=== PATIENT | male | born 1940 | race Caucasian/White ===

== ENCOUNTER → 2018-08-26 15:51 | Outpatient (CLI) | payer MEDICARE, OTHER, SELFPAY ==
--- NOTE | 2018-08-26 | DI.US.S_ITS ---
PROCEDURE: US PERIPH VENOUS LOW EXTREM RT INDICATIONS: LOCALIZED SWELLING, MASS AND LUMP RIGHT LOWER EXTREMITY TECHNIQUE: Real-time imaging, as well as color and pulse Doppler interrogation, were performed of the lower extremity deep veins from the inguinal ligament to the popliteal fossa. COMPARISON: None. FINDINGS: The common femoral, femoral and popliteal veins are normally compressible, and free of intraluminal thrombus. Color and pulse Doppler demonstrate normal phasic intraluminal flow. There is normal augmentation response to distal compression maneuver. What appears to be a Sales's cyst is located behind the knee, measuring 2.0 x 5.7 x 9.0 cm. IMPRESSION: No DVT found. Presumed Sales's cyst discussed above, measuring 2.0 x 5.7 x 9.0 cm. This is the likely cause for the reported symptomatology. Dictated by: Sean Hollins M.D. on 08/26/2018 at 17:12 Approved by: Sean Hollins M.D. on 08/26/2018 at 17:13
== END ==
PROVIDERS: PCP Internal Medicine; Visit Provider Internal Medicine
DX: R22.41 Localized swelling, mass and lump, right lower limb (principal); M79.661 Pain in right lower leg
CPT/HCPCS: 93971

== ENCOUNTER 2019-01-05 12:17 | Inpatient (IN) | payer MEDICARE, OTHER, SELFPAY ==
[2019-01-05] VITALS (11 sets, daily range): BP systolic 129–167; BP diastolic 69–91; PULSE 67–80; RESP 16–20; TEMP 36.4–37; O2SAT 98–100; BMI 23.6
--- NOTE | 2019-01-05 12:33 | DI.RAD.S_ITS ---
PROCEDURE: XR FEMUR RT MIN 2V INDICATIONS: likely femur fx TECHNIQUE: 2 views of the femur were acquired. COMPARISON: [facility], CR, XR HIP W PEL IF DONE RT 2V, 01/05/2019, 12:41. FINDINGS: Bones: There is offset of the posterior aspect of the lateral tibial plateau on the lateral view suggestive of a fracture. Soft tissues: No suspicious soft tissue calcifications or masses. IMPRESSION: Possible lateral tibial plateau fracture. This could be further assessed with knee plain films, if clinically indicated. Dictated by: Shamika Ornelas M.D. on 01/05/2019 at 13:24 Approved by: Shamika Ornelas M.D. on 01/05/2019 at 13:25
--- NOTE | 2019-01-05 12:33 | DI.RAD.S_ITS ---
PROCEDURE: XR HIP W PEL IF DONE RT 2V INDICATIONS: deformity TECHNIQUE: AP pelvis with lateral view(s) of the right hip(s). COMPARISON: [facility], CR, XR FEMUR 2VW LT, 09/12/2016, 13:10. FINDINGS: Bones: There is a moderately displaced comminuted intratrochanteric proximal femoral fracture. Soft tissues: The visualized bowel gas pattern is normal. No suspicious soft tissue calcifications. IMPRESSION: Intratrochanteric femoral fracture. Dictated by: Shamika Ornelas M.D. on 01/05/2019 at 13:25 Approved by: Shamika Ornelas M.D. on 01/05/2019 at 13:26
[2019-01-05] MEDS: LIDOCAINE 2% (UROJET) 5 ML GEL TOP (12:50)
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
[2019-01-05] MEDS: HYDROMORPHONE 1 MG INJ IV ×2 (13:43→19:03)
[2019-01-05] MEDS: SODIUM CHLORIDE 0.9% 1,000 ML 1000 ML IV (13:44)
[2019-01-05 13:57] LABS: Add Manual Diff / Slide Review NO; Basophils Absolute Auto 0 /uL (0-100); Basophils Percent Auto 0.3 % (0-2); Eosinophils Absolute Auto 100 /uL (0-450); Eosinophils Percent Auto 0.9 % (2-4); Hematocrit 38.3 % (41-53); Hemoglobin 13.1 g/dL (13.5-17.5); Lymphocytes Absolute Auto 1100 /uL (1100-4500); Lymphocytes Percent Auto 8.8 % (25-40); Mean Corpuscular HGB Conc 34.1 % (30-36); Mean Corpuscular Hemoglobin 31.7 PG (26-34); Mean Corpuscular Volume 93.1 fL (80-100); Monocytes Absolute Auto 800 /uL (0-900); Monocytes Percent Auto 6.9 % (3-14); Neutrophils Absolute Auto 10000 /uL (1500-7000); Neutrophils Percent Auto 83.1 % (50-75); Platelet Count 165 X10^3/uL (150-400); Red Blood Cell Count 4.11 X10^6/uL (4.5-5.9); Red Cell Distribution Width 14.1 % (11.6-14.8)
[2019-01-05 14:10] LABS: INR 1.2 (0.9-1.3); Prothrombin Time 13.4 SECONDS (10.1-12.7)
[2019-01-05 14:13] LABS: PTT Partial Thromboplastin Tim 34 SECONDS (26.4-36.2)
[2019-01-05 14:14] LABS: Alanine Aminotransferase 32 IU/L (21-72); Albumin 3.3 g/dL (3.5-5.0); Albumin Globulin Ratio 1.6 (1.0-2.8); Alkaline Phosphatase 52 U/L (38-126); Aspartate Aminotransferase 30 IU/L (17-59); Bilirubin Total 0.6 mg/dL (0.2-1.3); Blood Urea Nitrogen 16 mg/dL (9-20); Calcium 8.1 mg/dL (8.4-10.2); Carbon Dioxide 27 mmol/L (22-32); Chloride 105 mmol/L (98-107); Estimated Glomerular Filt Rate > 60.0 mL/min (>60); Globulin 2.1 g/dL (1.7-4.1); Glucose 96 mg/dL (80-110); HEMOLYSIS < 15 (0-50); Sodium 137 mmol/L (137-145); Total Protein 5.4 g/dL (6.3-8.2)
[2019-01-05] MEDS: HYDROMORPHONE 0.5 MG INJ IV (15:04)
--- NOTE | 2019-01-05 15:09 | PM.CN ---
History of Present Illness Chief complaint: fell, right hip pain Reason for consult: Right intertrochanteric hip fracture Requesting provider: Amy Santiago Narrative: The patient is an 78-year-old male that fell this morning on a dock [place] on [facility]. He had immediate hip pain deformity and was unable to ambulate. Denies loss of consciousness. Patient was life flighted to [facility] where x-rays were obtained and the patient was diagnosed with a intertrochanteric hip fracture on the right side. He lives in [place]. Primary care physician is Dr. charles. is currently driving their boat back to [place]. Patient denies any other pain. Denies any pain. Denies shortness of breath denies nausea denies vomiting denies any history of bleeding problems or blood clots. No known history of osteoporosis. [facility] Social History Smoking Status: Former smoker Social History Smoking Status: Former smoker Meds Home Medications Medication Instructions Recorded Confirmed Type aspirin 81 mg PO DAILY 01/05/19 01/05/19 History cyanocobalamin (vitamin B-12) 1,000 mcg IM QMONTH 01/05/19 01/05/19 History doxazosin 8 mg PO QPM 01/05/19 01/05/19 History lamotrigine 50 mg PO QAM 01/05/19 01/05/19 History lamotrigine 100 mg PO QPM 01/05/19 01/05/19 History lisinopril 5 mg PO QPM 01/05/19 01/05/19 History trospium 20 mg PO BID 01/05/19 01/05/19 History Allergies Allergy/AdvReac Type Severity Reaction Status Date / Time iodine [IODINE] Allergy Intermediate rash Verified 01/05/19 12:50 Review of Systems Review of Systems Denies fevers chills nausea vomiting numbness or tingling. Does have a history of vertigo. No current symptoms. Denies pain except for right hip. All systems reviewed & are unremarkable except as noted in HPI and below Exam Vital Signs (past 8 hours): - 01/05/19 12:18 01/05/19 13:30 01/05/19 14:30 Temperature 98.1 F Pulse Rate 74 71 70 Respiratory Rate 16 Blood Pressure 140/80 Blood Pressure [Right Arm] 167/76 H 153/76 H Pulse Oximetry 98 99 98 Oxygen Delivery Method Room Air Narrative Exam Narrative: General exam: Alert oriented male appears stated age lying on stretcher an ER. Answers questions appropriately. Vital signs stable Lungs: Lungs clear to auscultation bilaterally CV: Regular rate and rhythm Abdomen: Soft Genitourinary: Catheter in place Extremities: Left lower extremity no pain. No swelling no tenderness to palpation. Demonstrates active dorsiflexion plantar flexion of the ankle. Brisk capillary refill calf is soft. Right lower extremity: Shortened external rotated posture. Tenderness to palpation proximal femur near hip. No tenderness about the knee. Demonstrates 5/5 dorsiflexion plantar flexion. Endorses sensation to light touch in the lower extremities. Calf soft. Brisk capillary refill Bilateral upper extremities: Demonstrates full active range of motion in the shoulders elbow wrist. Sensation grossly intact to light touch. No tenderness to palpation Objective Imaging X-ray hip right: My impression: Two-view right hip AP pelvis and lateral right hip and two view femur AP and lateral demonstrate a comminuted intertrochanteric fracture of the right hip with involvement of the lesser trochanter and extension into the subtrochanteric region with this.--unstable intertrochanteric fracture. Two-view right femur demonstrates nonstandard imaging of the AP and lateral with joint space narrowing arthritis. No obvious fractures. Radiologist's impression: IMPRESSION: Intratrochanteric femoral fracture. Dictated by: Shamika Ornelas M.D. on 01/05/2019 at 13:25 Approved by: Shamika Ornelas M.D. on 01/05/2019 at 13:26 Labs Result Diagrams: 01/05/19 13:46 01/05/19 13:46 Labs: Laboratory Results - last 24 hr 01/05/19 01/05/19 01/05/19 13:46 13:46 13:46 WBC 12.0 H RBC 4.11 L Hgb 13.1 L Hct 38.3 L MCV 93.1 MCH 31.7 MCHC 34.1 RDW 14.1 Plt Count 165 Neut % (Auto) 83.1 H Lymph % (Auto) 8.8 L [place] % (Auto) 6.9 Eos % (Auto) 0.9 L Baso % (Auto) 0.3 Neut # (Auto) 19129 H Lymph # (Auto) 1100 [place] # (Auto) 800 Eos # (Auto) 100 Baso # (Auto) 0 PT 13.4 H INR 1.2 APTT 34 Sodium 137 Potassium 4.0 Chloride 105 Carbon Dioxide 27 BUN 16 Creatinine 0.50 L Estimated GFR > 60.0 BUN/Creatinine Ratio 32.0 H Glucose 96 Calcium 8.1 L Total Bilirubin 0.6 AST 30 ALT 32 Alkaline Phosphatase 52 Total Protein 5.4 L Albumin 3.3 L Globulin 2.1 Albumin/Globulin Ratio 1.6 Assessment & Plan Assessment & Plan narrative: 1. Right intertrochanteric hip fracture. The patient has a displaced and unstable intertrochanteric hip fracture pattern with comminution and involvement of the lesser trochanter. The patient has been indicated for operative fixation for stability and pain control and to facilitate early mobilization. The risks and benefits of the procedure have been discussed with the patient. The patient has had an opportunity to ask questions. The risks of surgery include but are not limited to infection, malunion, nonunion, persistence of pain, damage to nerves and blood vessels, posttraumatic arthritis, DVT, PE, symptomatic hardware, hardware failure, need for additional procedures, cardiopulmonary complications and . The patient expressed a thorough understanding of the risks and benefits of surgery and has elected to proceed. Consent was signed in the today. Patient will require medical optimization prior to surgery. Based on scheduling this would be ideally done within 72 hours of injury. Tentatively this scheduled for Saturday at 7:45 a.m. the patient will be NPO on Saturday at midnight. Alternative would be Saturday night in the evening after 5:00 p.m based on OR availability. Postoperatively DVT prophylaxis is recommended with SCDs and Lovenox x4 weeks. Patient is recommended for calcium and vitamin-D supplementation and evaluation with his primary care physician regarding a bone mineral density possible DEXA scanning and or bone metabolic treatment as indicated. Follow-up in Orthopedic Clinic with Dr. Ospina 2 weeks after surgery.
--- NOTE | 2019-01-05 15:17 | P.CONS_ITS ---
History of Present Illness Chief complaint: fell, right hip pain Reason for consult: Right intertrochanteric hip fracture Requesting provider: Amy Santiago Narrative: The patient is an 78-year-old male that fell this morning [place] a dock [place] [facility]. He had immediate hip pain deformity and was unable to ambulate. Denies loss of consciousness. Patient was life flighted to [facility] where x-rays were obtained and the patient was diagnosed with a intertrochanteric hip fracture on the right side. He lives in [place]. Primary care physician is Dr. charles. is currently driving their boat back to [place]. Patient denies any other pain. Denies any pain. Denies shortness of breath denies nausea denies vomiting denies any history of bleeding problems or blood clots. No known history of osteoporosis. [facility] Social History Smoking Status: Former smoker Social History Smoking Status: Former smoker Meds Home Medications Medication Instructions Recorded Confirmed Type aspirin 81 mg PO DAILY 01/05/19 01/05/19 History cyanocobalamin (vitamin B-12) 1,000 mcg IM QMONTH 01/05/19 01/05/19 History doxazosin 8 mg PO QPM 01/05/19 01/05/19 History lamotrigine 50 mg PO QAM 01/05/19 01/05/19 History lamotrigine 100 mg PO QPM 01/05/19 01/05/19 History lisinopril 5 mg PO QPM 01/05/19 01/05/19 History trospium 20 mg PO BID 01/05/19 01/05/19 History Allergies Allergy/AdvReac Type Severity Reaction Status Date / Time iodine [IODINE] Allergy Intermediate rash Verified 01/05/19 12:50 Review of Systems Review of Systems Denies fevers chills nausea vomiting numbness or tingling. Does have a history of vertigo. No current symptoms. Denies pain except for right hip. All systems reviewed & are unremarkable except as noted in HPI and below Exam Vital Signs (past 8 hours): - 01/05/19 12:18 01/05/19 13:30 01/05/19 14:30 Temperature 98.1 F Pulse Rate 74 71 70 Respiratory Rate 16 Blood Pressure 140/80 Blood Pressure [Right Arm] 167/76 H 153/76 H Pulse Oximetry 98 99 98 Oxygen Delivery Method Room Air Narrative Exam Narrative: General exam: Alert oriented male appears stated age lying on stretcher an ER. Answers questions appropriately. Vital signs stable Lungs: Lungs clear to auscultation bilaterally CV: Regular rate and rhythm Abdomen: Soft Genitourinary: Catheter in place Extremities: Left lower extremity no pain. No swelling no tenderness to palpation. Demonstrates active dorsiflexion plantar flexion of the ankle. B risk capillary refill calf is soft. Right lower extremity: Shortened external rotated posture. Tenderness to palpation proximal femur near hip. No tenderness about the knee. Demonstrates 5/5 dorsiflexion plantar flexion. Endorses sensation to light touch in the lower extremities. Calf soft. Brisk capillary refill Bilateral upper extremities: Demonstrates full active range of motion in the shoulders elbow wrist. Sensation grossly intact to light touch. No tenderness to palpation Objective Imaging X-ray hip right: My impression: Two-view right hip AP pelvis and lateral right hip and two view femur AP and lateral demonstrate a comminuted intertrochanteric fracture of the right hip with involvement of the lesser trochanter and extension into the subtrochanteric region with this.--unstable intertrochanteric fracture. Two- view right femur demonstrates nonstandard imaging of the AP and lateral with joint space narrowing arthritis. No obvious fractures. Radiologist's impression: IMPRESSION: Intratrochanteric femoral fracture. Dictated by: Shamika Ornelas M.D. on 01/05/2019 at 13:25 Approved by: Shamika Ornelas M.D. on 01/05/2019 at 13:26 Labs Result Diagrams: 01/05/19 13:46 01/05/19 13:46 Labs: Laboratory Results - last 24 hr 01/05/19 01/05/19 01/05/19 13:46 13:46 13:46 WBC 12.0 H RBC 4.11 L Hgb 13.1 L Hct 38.3 L MCV 93.1 MCH 31.7 MCHC 34.1 RDW 14.1 Plt Count 165 Neut % (Auto) 83.1 H Lymph % (Auto) 8.8 L [place] % (Auto) 6.9 Eos % (Auto) 0.9 L Baso % (Auto) 0.3 Neut # (Auto) 53721 H Lymph # (Auto) 1100 [place] # (Auto) 800 Eos # (Auto) 100 Baso # (Auto) 0 PT 13.4 H INR 1.2 APTT 34 Sodium 137 Potassium 4.0 Chloride 105 Carbon Dioxide 27 BUN 16 Creatinine 0.50 L Estimated GFR > 60.0 BUN/Creatinine Ratio 32.0 H Glucose 96 Calcium 8.1 L Total Bilirubin 0.6 AST 30 ALT 32 Alkaline Phosphatase 52 Total Protein 5.4 L Albumin 3.3 L Globulin 2.1 Albumin/Globulin Ratio 1.6 Assessment & Plan Assessment & Plan narrative: 1. Right intertrochanteric hip fracture. The patient has a displaced and unstable intertrochanteric hip fracture pattern with comminution and involvement of the lesser trochanter. The patient has been indicated for operative fixation for stability and pain control and to facilitate early mobilization. The risks and benefits of the procedure have been discussed with the patient. The patient has had an opportunity to ask questions. The risks of surgery include but are not limited to infection, malunion, nonunion, persistence of pain, damage to nerves and blood vessels, posttraumatic arthritis, DVT, PE, symptomatic hardware, hardware failure, need for additional procedures, cardiopulmonary complications and . The patient expressed a thorough understanding of the risks and benefits of surgery and has elected to proceed. Consent was signed in the today. Patient will require medical optimization prior to surgery. Based on scheduling this would be ideally done within 72 hours of injury. Tentatively this scheduled for Saturday at 7:45 a.m. the patient will be NPO on Saturday at midnight. Alternative would be Saturday night in the evening after 5:00 p.m based on OR availability. Postoperatively DVT prophylaxis is recommended with SCDs and Lovenox x4 weeks. Patient is recommended for calcium and vitamin-D supplementation and evaluation with his primary care physician regarding a bone mineral density possible DEXA scanning and or bone metabolic treatment as indicated. Follow-up in Orthopedic Clinic with Dr. Ospina 2 weeks after surgery.
--- NOTE | 2019-01-05 15:39 | PC.NURSE ---
attempted to give report, nurse unavailable at this time.
[2019-01-05] MEDS: SODIUM CHLORIDE 0.9% 1,000 ML 100 ML IV (17:45)
[2019-01-05] MEDS: KETOROLAC 30 MG/ML VIAL IV ×2 (18:05→23:41)
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
[2019-01-05] MEDS: lamoTRIgine 100 MG TABLET PO (19:12)
[2019-01-05] MEDS: DOXAZOSIN 4 MG TABLET 8 MG PO (19:13)
[2019-01-05] MEDS: DOCUSATE 100 MG CAPSULE PO (19:14)
[2019-01-05] MEDS: LISINOPRIL 5 MG TABLET PO (19:54)
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
[2019-01-05] MEDS: ACETAMINOPHEN 325 MG TABLET 975 MG PO (23:42)
--- NOTE | 2019-01-05 23:57 | PC.NURSE ---
Addendum entered by Loyda Schmitz R.N. 01/06/19 06:06: States pain at rest is 0/10 but with any movement increases to 7/10; medicated with scheduled Tylenol + Toradol. Awake most of night. Addendum entered by Loyda Schmitz R.N. 01/06/19 03:54: Medicated with Oxycodone for complaint of 5/10 right hip pain. Addendum entered by Loyda Schmitz R.N. 01/06/19 00:23: Patient has indwelling catheter which is patent; urine is clear eryn. Original Note: Patient is oriented except for day of month/day of week. Breath sounds diminished but CTA with RA sat of 100%. HRR. Telemetry reading was SR w/1st degree AVB + BBB. Denies nausea. BT present and abdomen is soft. Not wanting to reposition due to right hip pain but did turn slightly to left for lung assessment. States pain is 5/10; medicated with scheduled Tylenol + Toradol. Agreeable at shift change to have SCD's applied so now with calf SCD's in place. Bandaids to right hand/wrist are CDI. Fall risk score is high and bed alarm is activated.
[2019-01-06] VITALS (11 sets, daily range): BP systolic 120–154; BP diastolic 63–76; PULSE 57–75; RESP 14–20; TEMP 35.8–37.5; O2SAT 96–100
[2019-01-06] MEDS: SODIUM CHLORIDE 0.9% 1,000 ML 100 ML IV (03:37)
[2019-01-06] MEDS: OXYCODONE IR 5 MG TABLET PO ×5 (03:40→23:07)
[2019-01-06] MEDS: ACETAMINOPHEN 325 MG TABLET 975 MG PO ×3 (06:05→17:58)
[2019-01-06] MEDS: KETOROLAC 30 MG/ML VIAL IV (06:06)
[2019-01-06 07:09] LABS: Add Manual Diff / Slide Review NO; Basophils Absolute Auto 0 /uL (0-100); Basophils Percent Auto 0.3 % (0-2); Eosinophils Absolute Auto 100 /uL (0-450); Eosinophils Percent Auto 2.1 % (2-4); Hematocrit 31.9 % (41-53); Lymphocytes Absolute Auto 1300 /uL (1100-4500); Lymphocytes Percent Auto 18.9 % (25-40); Mean Corpuscular HGB Conc 34.6 % (30-36); Mean Corpuscular Hemoglobin 32.5 PG (26-34); Monocytes Absolute Auto 1000 /uL (0-900); Monocytes Percent Auto 14.3 % (3-14); Neutrophils Absolute Auto 4300 /uL (1500-7000); Neutrophils Percent Auto 64.4 % (50-75); Platelet Count 124 X10^3/uL (150-400); Red Blood Cell Count 3.39 X10^6/uL (4.5-5.9); Red Cell Distribution Width 13.8 % (11.6-14.8); White Blood Cell Count 6.6 X10^3/uL (4.5-11.0)
[2019-01-06 07:29] LABS: BUN Creatinine Ratio 28.3 (6-22); Blood Urea Nitrogen 17 mg/dL (9-20); Calcium 7.5 mg/dL (8.4-10.2); Carbon Dioxide 28 mmol/L (22-32); Chloride 99 mmol/L (98-107); Estimated Glomerular Filt Rate > 60.0 mL/min (>60); Glucose 156 mg/dL (80-110); HEMOLYSIS < 15 (0-50); Magnesium 1.7 mg/dL (1.6-2.3); Sodium 130 mmol/L (137-145)
[2019-01-06] MEDS: ASPIRIN EC 81 MG TABLET PO (08:09)
[2019-01-06] MEDS: lamoTRIgine 100 MG TABLET 50 MG PO (08:09)
--- NOTE | 2019-01-06 09:42 | P.PN_ITS ---
Subjective Date Patient Seen: 01/06/19 Interval history: Maikol Hutchison is an 78-year-old male with a past medical history significant for hypertension, seizure disorder, vertigo and BPH who presented after ground level fall with right hip pain and inability to ambulate. The patient is resting in bed comfortably. He reports he has very little pain. He experienced the most pain with movement. He was NPO at midnight but is not scheduled for surgery until tomorrow therefore his diet has been advanced. He has no complaints and denies headache, shortness of breath, chest pain, abdominal pain, nausea, vomiting, fever, chills, dysuria, diarrhea or constipation. He is voiding via Campuzano catheter without difficulty. He has not had a bowel movement since admission and a bowel regimen has been implemented. Exam Vital Signs (past 8 hours): - 01/06/19 03:51 01/06/19 08:00 01/06/19 08:05 Temperature 97.5 F L 96.5 F L Pulse Rate 65 63 Respiratory Rate 20 14 Blood Pressure 120/65 123/63 Pulse Oximetry 98 99 97 Oxygen Delivery Method Room Air Oxygen Flow Rate 0 Narrative Exam Narrative: General: Elderly thin gentleman sitting in bed and in no acute distress, well- developed, well-nourished, appropriately interactive. HEENT: Normocephalic, atraumatic. External ears without defect. Pupils equal, round, and reactive to light. Anicteric sclerae, moist conjunctivae, and no lid lag. Oropharynx free of erythema and cobble stoning with moist mucosa. Seborrheic keratoses scattered throughout body. Neck: Supple with full range of motion. No jugular venous distension. No lymphadenopathy or thyromegaly. Cardiovascular: Regular rate and rhythm without murmurs, rubs, or gallops appreciated Pulmonary: Clear to auscultation bilaterally without crackles, wheezes, or rhonchi. Normal respiratory effort with no use of accessory muscles. Abdomen: Soft, bowel sounds present, nontender, nondistended. No hepatosplenomegaly or masses appreciated. Extremities: No clubbing, cyanosis, or edema. Right leg externally rotated with obvious deformity. No tenderness to palpation superficially. No ecchymoses. Skin: Normal temperature, turgor, and texture; no rash, ulcers, or subcutaneous nodules appreciated. Neurological: Cranial nerves grossly intact. Psychiatric: Normal mood and affect. Alert and oriented to person, place, and time. Objective Labs Result Diagrams: 01/06/19 07:00 01/06/19 07:00 Labs: Laboratory Results - last 24 hr 01/05/19 01/05/19 01/05/19 13:46 13:46 13:46 WBC 12.0 H RBC 4.11 L Hgb 13.1 L Hct 38.3 L MCV 93.1 MCH 31.7 MCHC 34.1 RDW 14.1 Plt Count 165 Neut % (Auto) 83.1 H Lymph % (Auto) 8.8 L [place] % (Auto) 6.9 Eos % (Auto) 0.9 L Baso % (Auto) 0.3 Neut # (Auto) 97233 H Lymph # (Auto) 1100 [place] # (Auto) 800 Eos # (Auto) 100 Baso # (Auto) 0 PT 13.4 H INR 1.2 APTT 34 Sodium 137 Potassium 4.0 Chloride 105 Carbon Dioxide 27 BUN 16 Creatinine 0.50 L Estimated GFR > 60.0 BUN/Creatinine Ratio 32.0 H Glucose 96 Calcium 8.1 L Magnesium Total Bilirubin 0.6 AST 30 ALT 32 Alkaline Phosphatase 52 Total Protein 5.4 L Albumin 3.3 L Globulin 2.1 Albumin/Globulin Ratio 1.6 01/06/19 01/06/19 07:00 07:00 WBC 6.6 RBC 3.39 L Hgb 11.0 L Hct 31.9 L MCV 94.0 MCH 32.5 MCHC 34.6 RDW 13.8 Plt Count 124 L Neut % (Auto) 64.4 Lymph % (Auto) 18.9 L [place] % (Auto) 14.3 H Eos % (Auto) 2.1 Baso % (Auto) 0.3 Neut # (Auto) 4300 Lymph # (Auto) 1300 [place] # (Auto) 1000 H Eos # (Auto) 100 Baso # (Auto) 0 PT INR APTT Sodium 130 L Potassium 4.0 Chloride 99 Carbon Dioxide 28 BUN 17 Creatinine 0.60 L Estimated GFR > 60.0 BUN/Creatinine Ratio 28.3 H Glucose 156 H Calcium 7.5 L Magnesium 1.7 Total Bilirubin AST ALT Alkaline Phosphatase Total Protein Albumin Globulin Albumin/Globulin Ratio Assessment & Plan Assessment & Plan narrative: Maikol Hutchison is an 78-year-old male with a past medical history significant for hypertension, seizure disorder, vertigo and BPH who presented after ground level fall with right hip pain and inability to ambulate. 1. Acute pathological right intratrochanteric hip fracture, present on admission . Active. -Patient presented after he became dizzy from turning his head quickly and endured a ground level fall with right hip pain, obvious deformity and inability to walk. -Right hip x-ray demonstrated right intratrochanteric femoral fracture. -Continue to monitor closely on telemetry. -Consulted Orthopedic surgery, Dr. Ospina, who plans to repair hip on 01/07 due scheduling conflicts. NPO at midnight. -Continue acetaminophen 975 mg 3 times daily, oxycodone 5-325 mg every 3 hours as needed for moderate pain and hydromorphone 1 mg every 6 hours as needed for breakthrough pain. 2. Vertigo, acute on chronic, not present on admission. Intermittent. -Patient presented after a vertigo/presyncopal episode in which he turned his head causing such a degree of lightheadedness and and dizziness that he fell down. -Ordered CTA head and neck, pending. 3. Normocytic anemia, acuity unclear but likely acute and related to hip fracture, present on admission. Active. -Initial hemoglobin 13.1 which is only mildly below normal and likely bank representative of acute anemia related to hip fracture. Now 11.0 and likely dilutional. -Continue to monitor H&H closely. Transfusion goal Hgb < 7.0. 4. Hypertension, chronic, present on admission. Stable. -Continue lisinopril 5 mg daily at bedtime. 5. Seizure disorder, chronic, present on admission. Stable. -Patient has history of seizure disorder with last seizure at least 5 years ago and without a known cause for seizures. -Continue lamotrigine 100 mg twice daily. 6. BPH with LUTS, chronic, present on admission. Stable. -Continue doxazosin 8 mg daily at bedtime and trospium 20 mg twice daily. 7. Alcohol dependence, chronic, present on admission. Stable. -Patient reports he drinks 1-2 beers nightly. -He has no history of alcohol withdrawal, DTs or alcohol withdrawal seizure. -Continue to monitor closely for signs of alcohol withdrawal and have a low threshold to initiate CIWA protocol.
--- NOTE | 2019-01-06 10:09 | PM.PN.1 ---
Subjective Date Patient Seen: 01/06/19 Time Patient Seen: 10:09 Interval history: Hospital day 2 with a right intertrochanteric displaced hip fracture. Orthopedic consult done by Dr. Ospina. Patient is currently scheduled for hip surgery tomorrow morning by Dr. Ospina. Patient had difficulty voiding and had Campuzano catheter placed. He is receiving IV Dilaudid and ketorolac and also oxycodone p.o.. Exam Vital Signs (past 8 hours): - 01/06/19 03:51 01/06/19 08:00 01/06/19 08:05 Temperature 97.5 F L 96.5 F L Pulse Rate 65 63 Respiratory Rate 20 14 Blood Pressure 120/65 123/63 Pulse Oximetry 98 99 97 Oxygen Delivery Method Room Air Oxygen Flow Rate 0 Narrative Exam Narrative: Alert, oriented no acute distress resting in bed. Right leg. No calf pain or swelling. Pulses symmetrical. Increased pain with movement of right hip. Objective Labs Result Diagrams: 01/06/19 07:00 01/06/19 07:00 Labs: Laboratory Results - last 24 hr 01/05/19 01/05/19 01/05/19 13:46 13:46 13:46 WBC 12.0 H RBC 4.11 L plan: Hgb 13.1 L Hct 38.3 L MCV 93.1 MCH 31.7 MCHC 34.1 RDW 14.1 Plt Count 165 Neut % (Auto) 83.1 H Lymph % (Auto) 8.8 L [place] % (Auto) 6.9 Eos % (Auto) 0.9 L Baso % (Auto) 0.3 Neut # (Auto) 25267 H Lymph # (Auto) 1100 [place] # (Auto) 800 Eos # (Auto) 100 Baso # (Auto) 0 PT 13.4 H INR 1.2 APTT 34 Sodium 137 Potassium 4.0 Chloride 105 Carbon Dioxide 27 BUN 16 Creatinine 0.50 L Estimated GFR > 60.0 BUN/Creatinine Ratio 32.0 H Glucose 96 Calcium 8.1 L Magnesium Total Bilirubin 0.6 AST 30 ALT 32 Alkaline Phosphatase 52 Total Protein 5.4 L Albumin 3.3 L Globulin 2.1 Albumin/Globulin Ratio 1.6 01/06/19 01/06/19 07:00 07:00 WBC 6.6 RBC 3.39 L Hgb 11.0 L Hct 31.9 L MCV 94.0 MCH 32.5 MCHC 34.6 RDW 13.8 Plt Count 124 L Neut % (Auto) 64.4 Lymph % (Auto) 18.9 L [place] % (Auto) 14.3 H Eos % (Auto) 2.1 Baso % (Auto) 0.3 Neut # (Auto) 4300 Lymph # (Auto) 1300 [place] # (Auto) 1000 H Eos # (Auto) 100 Baso # (Auto) 0 PT INR APTT Sodium 130 L Potassium 4.0 Chloride 99 Carbon Dioxide 28 BUN 17 Creatinine 0.60 L Estimated GFR > 60.0 BUN/Creatinine Ratio 28.3 H Glucose 156 H Calcium 7.5 L Magnesium 1.7 Total Bilirubin AST ALT Alkaline Phosphatase Total Protein Albumin Globulin Albumin/Globulin Ratio Assessment & Plan Assessment & Plan narrative: Plan: Patient will remain in bed today. Plan NPO after midnight tonight for surgery tomorrow morning by Dr. Ospina.
--- NOTE | 2019-01-06 10:12 | P.PN_ITS ---
Subjective Date Patient Seen: 01/06/19 Time Patient Seen: 10:09 Interval history: Hospital day 2 with a right intertrochanteric displaced hip fracture. Orthopedic consult done by Dr. Ospina. Patient is currently scheduled for hip surgery tomorrow morning by Dr. Ospina. Patient had di fficulty voiding and had Campuzano catheter placed. He is receiving IV Dilaudid and ketorolac and also oxycodone p.o.. Exam Vital Signs (past 8 hours): - 01/06/19 03:51 01/06/19 08:00 01/06/19 08:05 Temperature 97.5 F L 96.5 F L Pulse Rate 65 63 Respiratory Rate 20 14 Blood Pressure 120/65 123/63 Pulse Oximetry 98 99 97 Oxygen Delivery Method Room Air Oxygen Flow Rate 0 Narrative Exam Narrative: Alert, oriented no acute distress resting in bed. Right leg. No calf pain or swelling. Pulses symmetrical. Increased pain with movement of right hip. Objective Labs Result Diagrams: 01/06/19 07:00 01/06/19 07:00 Labs: Laboratory Results - last 24 hr 01/05/19 01/05/19 01/05/19 13:46 13:46 13:46 WBC 12.0 H RBC 4.11 L plan: Hgb 13.1 L Hct 38.3 L MCV 93.1 MCH 31.7 MCHC 34.1 RDW 14.1 Plt Count 165 Neut % (Auto) 83.1 H Lymph % (Auto) 8.8 L [place] % (Auto) 6.9 Eos % (Auto) 0.9 L Baso % (Auto) 0.3 Neut # (Auto) 98095 H Lymph # (Auto) 1100 [place] # (Auto) 800 Eos # (Auto) 100 Baso # (Auto) 0 PT 13.4 H INR 1.2 APTT 34 Sodium 137 Potassium 4.0 Chloride 105 Carbon Dioxide 27 BUN 16 Creatinine 0.50 L Estimated GFR > 60.0 BUN/Creatinine Ratio 32.0 H Glucose 96 Calcium 8.1 L Magnesium Total Bilirubin 0.6 AST 30 ALT 32 Alkaline Phosphatase 52 Total Protein 5.4 L Albumin 3.3 L Globulin 2.1 Albumin/Globulin Ratio 1.6 01/06/19 01/06/19 07:00 07:00 WBC 6.6 RBC 3.39 L Hgb 11.0 L Hct 31.9 L MCV 94.0 MCH 32.5 MCHC 34.6 RDW 13.8 Plt Count 124 L Neut % (Auto) 64.4 Lymph % (Auto) 18.9 L [place] % (Auto) 14.3 H Eos % (Auto) 2.1 Baso % (Auto) 0.3 Neut # (Auto) 4300 Lymph # (Auto) 1300 [place] # (Auto) 1000 H Eos # (Auto) 100 Baso # (Auto) 0 PT INR APTT Sodium 130 L Potassium 4.0 Chloride 99 Carbon Dioxide 28 BUN 17 Creatinine 0.60 L Estimated GFR > 60.0 BUN/Creatinine Ratio 28.3 H Glucose 156 H Calcium 7.5 L Magnesium 1.7 Total Bilirubin AST ALT Alkaline Phosphatase Total Protein Albumin Globulin Albumin/Globulin Ratio Assessment & Plan Assessment & Plan narrative: Plan: Patient will remain in bed today. Plan NPO after midnight tonight for surgery tomorrow morning by Dr. Ospina.
--- NOTE | 2019-01-06 10:38 | PC.NURSE ---
Day Shift- Pt A&OX3, disoriented to date/day of week. Able to make needs known using call light. Repositioned in bed with 2PA, bedrest for now. Per John Mosquera,PAC, pt may eat today, NPO at midnight for surgery tomorrow/Saturday 8 AM, no time yet. Pt updated. Per Dr. King at 1015, pt to start fluid restriction with free water of 2000ml. 800/800/400. Limit coffee to 2 cups per day. Plan to pre-medicate pt with IV Benadryl and IV Solu-mederol prior to CT scan. High fall risk precautions in place, bed alarm on. Pt's Yazmin at bedside updated with plan.
[2019-01-06] MEDS: diphenhydrAMINE 50 MG/ML VIAL 25 MG IV (10:54)
--- NOTE | 2019-01-06 11:24 | DI.CT.S_ITS ---
PROCEDURE: CT ANGIO HEAD AND NECK INDICATIONS: Presyncopal episode with neck turning TECHNIQUE: Pre-contrast 4.5 mm thick sections acquired from the foramen magnum to the vertex. After the administration of intravenous contrast, 1 mm thick sections acquired from the aortic arch through the Lohn of [place]. Post-contrast 4.5 mm thick sections then re-acquired from the foramen magnum to the vertex. 3-dimensional iwxapin-ivnsfhahs-cgncxuznlb (MIP) and/or volume rendering reformats were acquired of the central intracranial vasculature and neck separately. COMPARISON: None. FINDINGS: Image quality: Excellent. BRAIN: CSF spaces: Ventricles are normal in size and shape. Basal cisterns are patent. No extra-axial fluid collections. Brain: No midline shift. No intracranial bleeds or masses. Ayala-white matter interface appears intact. Skull and face: Calvarium and facial bones appear intact, without suspicious lesions. Orbits appear normal. Sinuses: Sinuses and mastoids are clear except for minimal bilateral maxillary sinus mucosal thickening. HEAD CT ANGIOGRAPHY: Anterior circulation: Intracranial internal carotid arteries are normal in size and flow. The flow within the paired anterior cerebral arteries is normal and symmetric. The flow within the middle cerebral arteries is normal and symmetric. The anterior communicating artery is seen. No aneurysms are seen. Posterior circulation: Visualized portions of the vertebral arteries demonstrate normal caliber, and join to form a normal appearing basilar artery. Flow within the posterior cerebral arteries is normal and symmetric. No aneurysms are seen. NECK CT ANGIOGRAPHY: Carotid system: The great vessels demonstrate a conventional anatomy as they arise from the aortic arch. The origins of the common carotid arteries appear patent. The common carotid arteries demonstrate normal caliber and courses. The bifurcation regions are both widely patent. There is minimal left carotid atherosclerosis. The internal carotid arteries demonstrate normal calibers and courses. Posterior circulation: Dominant left vertebral artery. The basal artery appears grossly unremarkable. Diffuse hypoplastic/narrowed appearance of the right vertebral artery The right posterior communicating artery is visualized. The flow within the posterior cerebral arteries is normal and symmetric. No stenoses, occlusions, or aneurysms. Soft tissues: Visualized neck soft tissues demonstrate no suspicious abnormalities. Bilateral upper lobe scarring/atelectasis. Bones: No suspicious bony lesions. Visualized cervical spine appears normally aligned. IMPRESSION: Minimal left carotid atherosclerosis. No focal ICA stenosis or occlusion. Dominant left vertebral artery. Normal intracranial MRA. No acute intracranial process. Any quantitative measurements of stenosis were performed using NASCET criteria. Dictated by: Randell Potts M.D. on 01/06/2019 at 12:44 Approved by: Randell Potts M.D. on 01/06/2019 at 12:52
--- NOTE | 2019-01-06 14:31 | CM.DANOTE ---
Addendum entered by Massiel Mason LPN 01/06/19 14:44: Went to room as planned. Pt is snoring and medicated. Discussion with miriam SUÁREZ coordinator Bubba bowmanates that pt may be going to surgery this later today as an add on with Dr. Ospina instead of having to wait for tomorrow. DCP team will check in tomorrow and follow up after surgery to assist with rehab issues and options. Payer: Medicare and [employer]. Admission status: INPT: confirmed by UR KAMINI Hinds. Original Note: Discharge Planning/Care Management DCP: assessment: Case received EMR reviewed. Discussed in Team Rounds. Pt is an 78 year old male who slipped and fell while reportedly getting a boat off of a dock. Admitted yesterday afternoon to care of hospitalist team. Orthopedic team is consulting. As per discussion in Rounds surgery is planned tomorrow to repair fractured hip. Will check in with pt now for introduction of self and role. CM Discharge Assessment Start: 01/06/19 14:30 Freq: Status: Active Protocol: Document 01/06/19 14:30 ITV (Rec: 01/06/19 14:31 ITV [id number]) Discharge Planning Assessment Advance Directives? No History Provided By Patient Medical Record Prior Living Arrangements House Household Members spouse Is patient alert and oriented? Yes Whiteboard Updated in Patient Room with Yes name and ext. # of Foam Tank Laminator Review Status In Process
[2019-01-06] MEDS: LISINOPRIL 5 MG TABLET PO (17:57)
[2019-01-06] MEDS: DOXAZOSIN 4 MG TABLET 8 MG PO (17:59)
[2019-01-06] MEDS: lamoTRIgine 100 MG TABLET PO (18:00)
[2019-01-06] MEDS: HYDROMORPHONE 1 MG INJ IV (20:27)
[2019-01-06] MEDS: DOCUSATE 100 MG CAPSULE PO (21:03)
[2019-01-07] VITALS (16 sets, daily range): BP systolic 94–149; BP diastolic 38–72; PULSE 69–81; RESP 12–20; TEMP 36.4–37.1; O2SAT 93–100
--- NOTE | 2019-01-07 | DI.RAD.S_ITS ---
PROCEDURE: XR FEMUR RT MIN 2V INDICATIONS: POST OPERATIVE RIGHT IM NAILING TECHNIQUE: 4 views of the femur were acquired. COMPARISON: None. FINDINGS: Expected postoperative alignment of femoral intramedullary leyla and screw fixation. Hardware appears intact. Overlying postoperative soft tissue changes. IMPRESSION: Expected postoperative appearance. Dictated by: Randell Potts M.D. on 01/07/2019 at 11:02 Approved by: Randell Potts M.D. on 01/07/2019 at 11:04
--- NOTE | 2019-01-07 | DI.RAD.S_ITS ---
PROCEDURE: XR FEMUR RT MIN 2V INDICATIONS: RIGHT IM NAILING TECHNIQUE: 6 views of the femur were acquired. COMPARISON: [facility], , XR FEMUR RT MIN 2V, 01/05/2019, 12:41. FINDINGS: Spot fluoroscopic intraoperative views demonstrates intramedullary leyla and dynamic screw fixation of proximal right femur. Expected intraoperative alignment Dictated by: Randell Potts M.D. on 01/07/2019 at 12:26 Approved by: Randell Potts M.D. on 01/07/2019 at 12:27
[2019-01-07] MEDS: HYDROMORPHONE 1 MG INJ IV (03:09)
--- NOTE | 2019-01-07 06:53 | PC.NURSE ---
0653 OR crew is here to take pt. to surgery. Iain Sanderson co-ordinated yesterday called @ 0659 to report that pt. also sustained Rt. tibial plateau fracture. Informed ARTIFICIAL CHERRY MAKER., will report to day RN.
[2019-01-07 07:04] LABS: Add Manual Diff / Slide Review NO; Basophils Absolute Auto 100 /uL (0-100); Basophils Percent Auto 0.7 % (0-2); Eosinophils Absolute Auto 0 /uL (0-450); Eosinophils Percent Auto 0.4 % (2-4); Hematocrit 34.6 % (41-53); Hemoglobin 11.9 g/dL (13.5-17.5); Lymphocytes Absolute Auto 1500 /uL (1100-4500); Lymphocytes Percent Auto 12.6 % (25-40); Mean Corpuscular HGB Conc 34.3 % (30-36); Mean Corpuscular Hemoglobin 32.1 PG (26-34); Mean Corpuscular Volume 93.6 fL (80-100); Monocytes Absolute Auto 1200 /uL (0-900); Monocytes Percent Auto 9.8 % (3-14); Neutrophils Absolute Auto 9200 /uL (1500-7000); Neutrophils Percent Auto 76.5 % (50-75); Platelet Count 143 X10^3/uL (150-400); Red Cell Distribution Width 13.8 % (11.6-14.8)
[2019-01-07 07:13] LABS: Alanine Aminotransferase 23 IU/L (21-72); Albumin Globulin Ratio 1.3 (1.0-2.8); Alkaline Phosphatase 46 U/L (38-126); Aspartate Aminotransferase 27 IU/L (17-59); BUN Creatinine Ratio 31.7 (6-22); Bilirubin Total 0.6 mg/dL (0.2-1.3); Blood Urea Nitrogen 19 mg/dL (9-20); Calcium 8.1 mg/dL (8.4-10.2); Carbon Dioxide 30 mmol/L (22-32); Chloride 104 mmol/L (98-107); Estimated Glomerular Filt Rate > 60.0 mL/min (>60); Globulin 2.3 g/dL (1.7-4.1); Glucose 96 mg/dL (80-110); HEMOLYSIS < 15 (0-50); Potassium 4.2 mmol/L (3.4-5.1); Sodium 137 mmol/L (137-145); Total Protein 5.3 g/dL (6.3-8.2)
--- NOTE | 2019-01-07 07:27 | PM.PN.1 ---
Subjective Date Patient Seen: 01/07/19 Interval history: Maikol Hutchison is an 78-year-old male with a past medical history significant for hypertension, seizure disorder, vertigo and BPH who presented after ground level fall with right hip pain and inability to ambulate. The patient is resting in bed comfortably after his right hip repair. He reports he has very little right hip pain but currently has a spinal block in place. He endorses occasional muscle spasm and a muscle relaxant has been implemented. He has no complaints and denies headache, shortness of breath, chest pain, abdominal pain, nausea, vomiting, fever, chills, dysuria, diarrhea or constipation. He is voiding via Campuzano catheter and eliminating without difficulty. Discussed the patient's hyponatremia with the patient and his spouse and the possibility of him having low sodium chronically that could be contributing to his lightheadedness and dizziness. The patient was placed on a 2 L fluid restriction yesterday and received IV fluids with normal saline with correction of his sodium level. Recommended continued outpatient monitoring per his PCP. Exam Vital Signs (past 8 hours): - 01/07/19 00:00 01/07/19 04:20 Temperature 97.6 F Pulse Rate 74 Respiratory Rate 12 Blood Pressure 148/72 H Pulse Oximetry 97 99 Oxygen Delivery Method Room Air Oxygen Flow Rate 0 Narrative Exam Narrative: General: Elderly thin gentleman sitting in bed and in no acute distress, well-developed, well-nourished, appropriately interactive. HEENT: Normocephalic, atraumatic. External ears without defect. Pupils equal, round, and reactive to light. Anicteric sclerae, moist conjunctivae, and no lid lag. Seborrheic keratoses scattered throughout body. Neck: Supple with full range of motion. No jugular venous distension. No lymphadenopathy or thyromegaly. Cardiovascular: Regular rate and rhythm without murmurs, rubs, or gallops appreciated Pulmonary: Clear to auscultation bilaterally without crackles, wheezes, or rhonchi. Normal respiratory effort with no use of accessory muscles. Abdomen: Soft, bowel sounds present, nontender, nondistended. No hepatosplenomegaly or masses appreciated. Extremities: No clubbing, cyanosis, or edema. Right leg hip with dressing in place C/D/I. Skin: Normal temperature, turgor, and texture; no rash, ulcers, or subcutaneous nodules appreciated. Neurological: Cranial nerves grossly intact. Psychiatric: Normal mood and affect. Alert and oriented to person, place, and time. Objective Labs Result Diagrams: 01/07/19 06:55 01/07/19 06:55 Labs: Laboratory Results - last 24 hr 01/06/19 01/07/19 01/07/19 07:00 06:55 06:55 WBC 12.0 H D RBC 3.70 L Hgb 11.9 L Hct 34.6 L MCV 93.6 MCH 32.1 MCHC 34.3 RDW 13.8 Plt Count 143 L Neut % (Auto) 76.5 H Lymph % (Auto) 12.6 L [place] % (Auto) 9.8 Eos % (Auto) 0.4 L Baso % (Auto) 0.7 Neut # (Auto) 9200 H Lymph # (Auto) 1500 [place] # (Auto) 1200 H Eos # (Auto) 0 Baso # (Auto) 100 Sodium 130 L 137 Potassium 4.0 4.2 Chloride 99 104 Carbon Dioxide 28 30 BUN 17 19 Creatinine 0.60 L 0.60 L Estimated GFR > 60.0 > 60.0 BUN/Creatinine Ratio 28.3 H 31.7 H Glucose 156 H 96 Calcium 7.5 L 8.1 L Magnesium 1.7 2.0 Total Bilirubin 0.6 AST 27 ALT 23 Alkaline Phosphatase 46 Total Protein 5.3 L Albumin 3.0 L Globulin 2.3 Albumin/Globulin Ratio 1.3 Assessment & Plan Assessment & Plan narrative: Maikol Hutchison is an 78-year-old male with a past medical history significant for hypertension, seizure disorder, vertigo and BPH who presented after ground level fall with right hip pain and inability to ambulate. 1. Acute pathological right intratrochanteric hip fracture, present on admission. Active. -Patient presented after he became dizzy from turning his head quickly and endured a ground level fall with right hip pain, obvious deformity and inability to walk. -Right hip x-ray demonstrated right intratrochanteric femoral fracture. -Continue to monitor closely on telemetry. -Consulted Orthopedic surgery, Dr. Ospina, who performed intramedullary nailing of right intertrochanteric hip fracture today. Continue postoperative and pain management per Orthopedic surgery. -Continue acetaminophen 975 mg 3 times daily and oxycodone 5-325 mg every 3 hours as needed for moderate pain. -Ordered physical and occupational therapy evaluation and treatment for tomorrow, pending. 2. Vertigo, acute on chronic, not present on admission. Intermittent. -Patient presented after a vertigo/presyncopal episode in which he turned his head causing such a degree of lightheadedness and and dizziness that he fell down. -CTA head and neck demonstrated minimal left carotid atherosclerosis, no focal ICA stenosis or occlusion, dominant left vertebral artery, normal intracranial MRA and no acute intracranial process. -Other possible contributing factors to lightheadedness and dizziness include: doxazosin which has a high propensity for dizziness and/or if present hyponatremia. 3. Normocytic anemia, acuity unclear but likely acute and related to hip fracture, present on admission. Active. -Initial hemoglobin 13.1 which is only mildly below normal and likely risk control field representative of acute anemia related to hip fracture. Now 11.9 and stable. -Continue to monitor H&H closely. Transfusion goal Hgb < 7.0. 4. Hyponatremia, acuity unclear, not present on admission. Resolved. -Likely secondary to hypovolemia and dehydration from excessive coffee intake and nightly alcohol use. -Initial sodium level 137, however, once patient was hydrated with IV fluids patient's sodium dropped to 130. -Continue IV fluids with normal saline at 100 mL/hr and placed on 2 L fluid restriction as patient is drinking coffee excessively. Sodium level now corrected to 137. -Continue to monitor sodium level daily and replete as needed. 5. Hypertension, chronic, present on admission. Stable. -Continue lisinopril 5 mg daily at bedtime. 6. Seizure disorder, chronic, present on admission. Stable. -Patient has history of seizure disorder with last seizure at least 5 years ago and without a known cause for seizures. -Continue lamotrigine 100 mg twice daily. 7. BPH with LUTS, chronic, present on admission. Stable. -Continue doxazosin 8 mg daily at bedtime and trospium 20 mg twice daily. 8. Alcohol dependence, chronic, present on admission. Stable. -Patient reports he drinks 1-2 beers nightly. -He has no history of alcohol withdrawal, DTs or alcohol withdrawal seizure. -Continue to monitor closely for signs of alcohol withdrawal and have a low threshold to initiate CIWA protocol. Disposition: Patient likely to discharge in 1-2 days to group home facility for continued rehabilitation.
--- NOTE | 2019-01-07 07:30 | PM.PREOP ---
Pre-operative Note Interval Note History & Physical reviewed/Exam performed by Physician: Yes Changes to H&P: No
--- NOTE | 2019-01-07 07:43 | P.OP_ITS ---
Operative Date/Time/Diagnoses Date of procedure: 01/07/19 Time of procedure: 08:30 Pre-op diagnosis: Right unstable intertrochanteric hip fracture. Post-op diagnosis: same Procedure & Clinicians Procedure: Intramedullary nailing right intertrochanteric hip fracture CPT code 68644 Same procedure as scheduled: Yes Indications: Operative indications: The patient sustained a right hip fracture and was indicated for operative fixation. The risks, benefits, and alternatives of procedure were discussed at length with the patient and her POA, and they expressed understanding. These included bleeding, infection, damage to nerves, pain, malunion, nonunion, blood clots, leg-length discrepancy, limp, need for additional procedures, pulmonary embolism and cardiovascular risks associated with general anesthesia. Consent was signed. Surgeon: Irlanda Ospina Click Yes if Unassisted: Yes Anesthesia Type: General and Local Operative Notes Findings: Comminuted displaced right intertrochanteric fracture Closure Type: primary Specimen(s): none sent Prosthetic devices, grafts, tissues, transplants, or devices: [employer] intertan long nail 38x 10 115 mm lag screw and integrated compression screw 2x 45 mm 5.0 distal locking screws Estimated Blood Loss (mL): 100 Blood products transfused: none Tourniquet time (min): 0 Procedure in detail: The patient was seen, and site of surgery marked in the preoperative area. This was the right hip. The patient was then brought to the operating room and placed on the operative table and general anesthesia administered. The patient was positioned on the fracture table in the standard fashion with a well-padded boots and a padded peroneal post. An SCD was on the contralateral leg. A formal time-out was called to confirm the patient's side and site of surgery, administration of preoperative antibiotics. All personnel agreed. The operative leg was then gently manipulated under fluoroscopic guidance to obtain a closed reduction near anatomic alignment. At this point, the operative extremity was prepped and draped in the standard sterile manner. A guidewire was placed percutaneously, and the starting point obtained. A incision was made over the guidewire. An opening drill was inserted, but only passed a slightly into the greater trochanter. Guidewire was noted to be positioned well in the greater trochanter but did exit out the fracture site at the level of the lesser trochanter. The guidewires then repositioned. Inspected in AP and lateral planes with excellent positioning. Since there was a good enough entry hole in the greater trochanter the guidewire was removed and exchanged for the ball-tip guidewire which was advanced down the canal to the distal femur. This was confirmed in AP lateral planes. This was sequentially reamer with a 9, 10 and 11.5 reamers for a 10 nail. Next the entry assembly was reassembled and advanced to the level of lesser trochanter. A 38x 10 nail was selected. The nail was then advanced to the proper depth and rotation a ball-tip guidewire was removed. The guide for the cephalomedullary screws was inserted. An incision was made for this and the guide placed to the bone. A guidewire was placed to the proper depth and confirmed on AP and lateral imaging. The tip apex distance was evaluated and appropriate. Next the outer cortex was drilled for the interlocking screw and the anti rotation bar was placed. The cephalomedullary screw length was measured off the drill. I was very pleased with the alignment of the reduction and selected not to do extra compression through the fracture site. A 115 mm lag screw was selected in the corresponding interlocking compression screw. The guidewire was then overdrilled and a lag screw placed. The anti rotation bar was removed and then our locking compression screws placed and confirmed on biplanar fluoroscopy. The integrated compression screw was tightened. Then attention turned to the distal interlock screws, this was placed in the standard perfect [place] technique. Fluoro AP and lateral images were captured in the OR confirming alignment and hardware placement. The nail was locked proximally. Wounds were irrigated and closed in layers with 0 Vicryl in the deep fascia, 2-0 l in the subcutaneous layer and eugenia for skin closure. 0.25% Marcaine was injected at the incision sites for local anesthesia. Sterile dressings were applied. There no immediate complications noted. The surgical counts were correct. The patient tolerated the procedure well and was taken to the recovery room. Complications: none Condition: stable Disposition: PACU Plan for aftercare: Weight bear as tolerated right lower extremity. Following femur x-rays will be obtained in the PACU. Lovenox 40 mg times 28 days for DVT prophylaxis starting postop. SCDs while in the hospital. Recommend calcium and vitamin D and follow up with primary care physician regarding bone health possible need for DEXA scan or bisphosphonate supplementation.
[2019-01-07] MEDS: CEFAZOLIN 2 GM/100 ML FROZ.PIGGY IV ×3 (07:56→18:28)
[2019-01-07] MEDS: LACTATED RINGERS 1,000 ML 42 ML IV ×2 (08:00→09:26)
[2019-01-07] MEDS: BUPIVACAINE 0.25% W/ EPI 30 ML VIAL INJ (08:55)
--- NOTE | 2019-01-07 12:05 | CM.DPC ---
Addendum entered by Kyung Arredondo R.N. 01/07/19 15:27: Left message with Roxana in admissions at [facility] to review patient. Faxed face sheet to [facility]. Patient and spouse not yet decided upon facility, or if he can go home. He has not yet been up with P.T. Left message with Samantha at [facility] to inquire if they are accepting new patients, or if bed is available, but did not yet send information. Will see how patient does with physical therapy team. Original Note: DCP Cont: Met with patient and spouse, Yazmin. Patient had just had hip surgery secondary to a ground level fall. Patient has not yet been up with therapy. Dr. King indicated that patient may need chcf. Brought in Medicare Choice list for patient, spouse, to review. Discussed Medicare, as well as home health options. Let them know that if home health comes in, they would only come in a couple of days a week. will go over list, she is not familiar with facilities, but will review. P: DCP to continue to follow closely. Will follow up with patient and family regarding facilities, and with physical therapy as well. Kyung Arredondo RN/Financial Retirement Plan Specialist
[2019-01-07] MEDS: DOCUSATE 100 MG CAPSULE PO ×2 (13:06→20:41)
[2019-01-07] MEDS: ACETAMINOPHEN 325 MG TABLET 975 MG PO ×3 (13:06→23:55)
[2019-01-07] MEDS: ASPIRIN EC 81 MG TABLET PO (13:06)
[2019-01-07] MEDS: lamoTRIgine 100 MG TABLET 50 MG PO (13:07)
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
[2019-01-07] MEDS: SODIUM CHLORIDE 0.9% 1,000 ML 100 ML IV (15:45)
[2019-01-07] MEDS: OXYCODONE IR 5 MG TABLET PO ×2 (16:05→22:14)
[2019-01-07] MEDS: DOXAZOSIN 4 MG TABLET 8 MG PO (18:20)
[2019-01-07] MEDS: LISINOPRIL 5 MG TABLET PO (18:20)
[2019-01-07] MEDS: lamoTRIgine 100 MG TABLET PO (18:21)
[2019-01-08] VITALS: BP 120/67; PULSE 75; RESP 20; TEMP 36.7; O2SAT 98
[2019-01-08] MEDS: OXYCODONE IR 5 MG TABLET PO ×3 (03:19→09:35)
[2019-01-08 05:30] VITALS: BP 154/67; PULSE 76; RESP 16; TEMP 36.6; O2SAT 100
[2019-01-08] MEDS: ACETAMINOPHEN 325 MG TABLET 975 MG PO (05:40)
[2019-01-08] MEDS: SODIUM CHLORIDE 0.9% 1,000 ML 100 ML IV (05:47)
[2019-01-08 06:44] LABS: Add Manual Diff / Slide Review NO; Basophils Absolute Auto 0 /uL (0-100); Basophils Percent Auto 0.3 % (0-2); Eosinophils Absolute Auto 100 /uL (0-450); Eosinophils Percent Auto 1.8 % (2-4); Hematocrit 26.3 % (41-53); Hemoglobin 9.1 g/dL (13.5-17.5); Lymphocytes Absolute Auto 1200 /uL (1100-4500); Lymphocytes Percent Auto 16.6 % (25-40); Mean Corpuscular HGB Conc 34.4 % (30-36); Mean Corpuscular Hemoglobin 32.3 PG (26-34); Mean Corpuscular Volume 93.7 fL (80-100); Monocytes Absolute Auto 900 /uL (0-900); Monocytes Percent Auto 12.4 % (3-14); Neutrophils Absolute Auto 5100 /uL (1500-7000); Neutrophils Percent Auto 68.9 % (50-75); Platelet Count 111 X10^3/uL (150-400); Red Blood Cell Count 2.81 X10^6/uL (4.5-5.9); White Blood Cell Count 7.5 X10^3/uL (4.5-11.0)
[2019-01-08 06:57] LABS: BUN Creatinine Ratio 31.7 (6-22); Blood Urea Nitrogen 19 mg/dL (9-20); Calcium 7.5 mg/dL (8.4-10.2); Carbon Dioxide 30 mmol/L (22-32); Chloride 103 mmol/L (98-107); Estimated Glomerular Filt Rate > 60.0 mL/min (>60); Glucose 99 mg/dL (80-110); HEMOLYSIS < 15 (0-50); Magnesium 1.8 mg/dL (1.6-2.3); Potassium 4.1 mmol/L (3.4-5.1); Sodium 134 mmol/L (137-145)
[2019-01-08 07:25] VITALS: BP 126/51; PULSE 67; RESP 16; TEMP 36.7; O2SAT 100
--- NOTE | 2019-01-08 09:20 | CM.DPC ---
DCP Cont: Spoke to patient's , Yazmin, for Dr. King would like to discharge patient today if possible, and is recommending fdc. Had sent referral to [facility] yesterday, and message was left for [facility] [place], for referral. Had not yet heard back. Left Samantha another message at [facility]. Left Roxana a message at [facility] as well, for referral was sent yesterday. Yazmin is ok with either facility. P: DCP will continue to attempt reaching [facility] or [facility]. Kyung Arredondo, RN/Therapeutic Support Staff
[2019-01-08] MEDS: ENOXAPARIN 40 MG/0.4 ML SYRINGE SUBCUT (09:34)
[2019-01-08] MEDS: ASPIRIN EC 81 MG TABLET PO (09:35)
[2019-01-08] MEDS: METHOCARBAMOL 500 MG TABLET PO (09:38)
[2019-01-08] MEDS: lamoTRIgine 100 MG TABLET 50 MG PO (09:38)
--- NOTE | 2019-01-08 09:56 | PM.PNPO.1 ---
Subjective Date Patient Seen: 01/08/19 Time Patient Seen: 09:56 Interval history: Hospital day 4, postop day 1 following right intertrochanteric fracture with IM nail placement by Dr. Ospina. Patient has remained stable. He is weight-bearing as tolerated to the right leg. Pain controlled with oxycodone. He does have Campuzano catheter in place. Plan is for him to be discharged to [facility] once cleared by hospitalist. He will need postop visit at scheduled [facility] office in and a [place] at 2 weeks postop. Continue Lovenox 40 mg q.d. times 28 days postop. Exam Vital Signs (past 8 hours): - 01/08/19 05:30 01/08/19 07:25 Temperature 97.9 F 98.0 F Pulse Rate 76 67 Respiratory Rate 16 16 Blood Pressure 154/67 H 126/51 L Pulse Oximetry 100 100 Oxygen Delivery Method Room Air Oxygen Flow Rate 0 Narrative Exam Narrative: Alert, oriented no acute distress resting in bed. Right leg. Dressing to the lateral hip as some drainage on it. No signs of infection or inflammation. No calf pain or swelling. Pulses symmetrical. Objective Labs Result Diagrams: 01/08/19 06:35 01/08/19 06:35 Labs: Laboratory Results - last 24 hr 01/08/19 01/08/19 06:35 06:35 WBC 7.5 RBC 2.81 L Hgb 9.1 L Hct 26.3 L MCV 93.7 MCH 32.3 MCHC 34.4 RDW 14.0 Plt Count 111 L Neut % (Auto) 68.9 Lymph % (Auto) 16.6 L [place] % (Auto) 12.4 Eos % (Auto) 1.8 L Baso % (Auto) 0.3 Neut # (Auto) 5100 Lymph # (Auto) 1200 [place] # (Auto) 900 Eos # (Auto) 100 Baso # (Auto) 0 Sodium 134 L Potassium 4.1 Chloride 103 Carbon Dioxide 30 BUN 19 Creatinine 0.60 L Estimated GFR > 60.0 BUN/Creatinine Ratio 31.7 H Glucose 99 Calcium 7.5 L Magnesium 1.8 Assessment & Plan Post-op Postoperative Procedures Operation Date: 01/07/19 08:45 Actual Procedures Side Surgeon p intertrochanteric Hip IM nail Right Irlanda Ospina MD Plan: Will changes dressing to CovRsite dressing. Patient be discharged see [facility] pending and hospitalist clearance. For follow-up at [facility] office in [place] in 2 weeks postop.
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
--- NOTE | 2019-01-08 10:26 | PT.IPTN ---
Current Diagnoses Pathological fracture, right femur, initial encounter for fracture (01/05/19) Surgery Performed Operation Date: 01/07/19 08:45 Actual Procedures p intertrochanteric Hip IM nail(Right) - Irlanda Ospina MD Physical Therapy Treatment Note M2 PT-IP Current Condition Start: 01/07/19 16:33 Freq: NEEDED Status: Active Protocol: Document 01/07/19 15:10 AB (Rec: 01/07/19 16:54 AB [email or web address]) Physical Therapy Current Condition Current Condition Evaluation Date 01/07/19 Treatment Diagnosis R intertrochanteric hip fx s/p IM nailing; difficulty in walking Onset Date 01/05/19 Precautions Other Precautions falls Weight Bearing Status Weight Bearing Status Weight Bear as Tolerated M3 PT-IP Subjective Start: 01/07/19 16:33 Freq: NEEDED Status: Active Protocol: Document 01/08/19 10:26 AB (Rec: 01/08/19 11:39 AB [id number]) Subjective Physical Therapy Visit Type Type Treatment Note Visit Start Time 10:26 Visit Stop Time 10:56 Total Visit Minutes 30 Number of SILK OPENER Visits 0 Physical Therapy Visit Comments Patient Comments pt agreeable to do PT Therapy Pain Assessment Pain When Pain Assessed At Rest Pain Present Pain Present Pain Reported Location right hip Intensity 8 Scale Used Numeric (1 - 10) Pain Behaviors Facial Grimacing Guarding Holding Area Pain Management Techniques Re-positioning Timing of Activity with Medications M4 PT-IP Mobility and Gait Start: 01/07/19 16:33 Freq: NEEDED Status: Active Protocol: Document 01/08/19 10:26 AB (Rec: 01/08/19 11:39 AB [id number]) PT-Bed Mobility Assessment Supine to Sit Supine to Sit Maximum Assistance 1 Person Assistance 2 Person Assistance Head of Bed Elevated PT-Transfer Assessment Sit to and From Stand Sit to and from Stand Maximum Assistance 2 Person Assistance Use of Upper Extremities Equipment Transfer Assistive Device Gait Belt Front Wheeled Walker Orthotic/Prosthetic Devices or Brace: No Comments Mobility Comments pt completed heel slides prior to mobility. completed supine to sit max A x 1-2 and max cues with HOB elevated. pt c/o pain on R hip. pt required max A with initial sitting on EOB. repositioned pt and was able to sit on EOB CGA. BP 133/66. pt completed sit to stand max A x 2 and max cues. required assist to stabilize R knee. Attempted transfer to chair but nurse Idalmis stated to not transfer pt. assisted pt back in bed. pt able to scoot towards HOB min A and cues. pt completed sit to supine total A x 2 and max cues. left pt with nurse and NAC in room M5 PT-IP Objective Assessments Start: 01/07/19 16:33 Freq: NEEDED Status: Active Protocol: Document 01/07/19 15:10 AB (Rec: 01/07/19 16:54 AB [email or web address]) Orientation Orientation/Cognition Level of Alertness Alert Orientation Name Place Safety Awareness Decreased Safety Awareness Memory Description Short Term Impaired Comments pt with slight confusion Gross Range of Motion Lower Extremity ROM Assessment Within Functional Limits Impairments increase R hip tightness/ guarding during PROM Strength Lower Extremity Strength Assessment Right Impaired Hip 3-/5 Knee 3-/5 Coordination Assessment Gross Coordination Gross Coordination WNL Sensation Assessment Sensation Gross Sensation WNL Muscle Tone Muscle Tone WNL Yes M6 PT-IP Treatment Start: 01/07/19 16:33 Freq: NEEDED Status: Active Protocol: Document 01/08/19 10:26 AB (Rec: 01/08/19 11:39 AB [id number]) Physical Therapy Treatment Exercises Exercises Quad Sets Heel Slides Education Education Provided Weight Bearing Status Safety M7 PT-IP Assessment and Plan Start: 01/07/19 16:33 Freq: NEEDED Status: Active Protocol: Document 01/08/19 10:26 AB (Rec: 01/08/19 11:39 AB [id number]) PT Summary Assessment and Plan Potential Rehabilitation Potential Fair Summary Impairments Pain ROM Strength Balance Coordination Sensation Tone Cognition Bed Mobility Transfers Gait Activity Tolerance Progress Towards Goals Slow Progress due to Pain Slow Progress due to Activity Tolerance Assessment Summary pt requiring 2 person max A with mobility and unable to ambulate at this time. pt will need SNF rehab to improve strength and function. Goals Bed Mobility Goal Minimal Assistance Transfer Goal Minimal Assistance Front Wheeled Walker Gait Goal Minimal Assistance Front Wheel Walker Gait Distance 100 Days to Meet Goals 10 Frequency of Treatment Frequency Of Treatment Twice a Day Treatment Plan Physical Therapy Treatment Plan Bed Mobility Training Transfer Training Gait Training Therapeutic Exercise Balance Retraining Post Op Education Discharge Planning Hot or Cold Pack Neuromuscular Re-ed Coordination Retraining Manual Therapy Recommendations To Nursing Amount of Assist Needed PT/OT Assist Only Mechanical Lift
--- NOTE | 2019-01-08 10:53 | CM.DPC ---
DCP Cont: Discussed patient during team rounds with hospitalist, and she stated that patient is medically ready to discharge today. Let her know that this child support case officer had faxed [facility] referral, but would follow up with . Went ahead and faxed referral to [facility] as well, and spoke to Samantha in admissions letting her know that this could be a potential referral. , Yazmin, stated, it would probably be just as good if he stays here in [place] and goes to [facility]. Did get in touch with Roxana at [facility] after faxing her over more clinical notes. She did review, and stated that they can accept him. Plan of picker/puller time is approximately 1330. was updated that he is going to [facility] today. Enma Longoria RN, updated. Received signed med list and prescriptions, PASSR completed. Faxed PASSR, discharge summary, signed med list and prescription to [facility]. Originals placed in manilla envelope. P: Patient is to be discharged today to [facility]. Kyung Arredondo RN/Manager Respiratory Care
[2019-01-08 11:03] VITALS: BP 143/68; PULSE 81; RESP 18; TEMP 37.3; O2SAT 99
--- NOTE | 2019-01-08 11:05 | OT.IP.TRT ---
Current Diagnoses Pathological fracture, right femur, initial encounter for fracture (01/05/19) Surgery Performed Operation Date: 01/07/19 08:45 Actual Procedures p intertrochanteric Hip IM nail(Right) - Irlanda Ospina MD Occupational Therapy Treatment Note M3 OT- IP Subjective and Pain Start: 01/08/19 11:05 Freq: Status: Active Protocol: Document 01/08/19 11:05 PJMichael (Rec: 01/08/19 11:05 PJMichael [email or web address]) OT- Subjective Occupational Therapy Visit Type Type Administrative Note Visit Start Time 11:05 Notes OT referral received. Note that pt will d/c to SNF today so will defer OT eval to SNF. No charge.
[2019-01-08] MEDS: OXYCODONE IR 10 MG TABLET PO (11:07)
--- NOTE | 2019-01-08 13:00 | PT.IPTN ---
Current Diagnoses Pathological fracture, right femur, initial encounter for fracture (01/05/19) Surgery Performed Operation Date: 01/07/19 08:45 Actual Procedures p intertrochanteric Hip IM nail(Right) - Irlanda Ospina MD Physical Therapy Treatment Note M2 PT-IP Current Condition Start: 01/07/19 16:33 Freq: NEEDED Status: Active Protocol: Document 01/07/19 15:10 AB (Rec: 01/07/19 16:54 AB [email or web address]) Physical Therapy Current Condition Current Condition Evaluation Date 01/07/19 Treatment Diagnosis R intertrochanteric hip fx s/p IM nailing; difficulty in walking Onset Date 01/05/19 Precautions Other Precautions falls Weight Bearing Status Weight Bearing Status Weight Bear as Tolerated M3 PT-IP Subjective Start: 01/07/19 16:33 Freq: NEEDED Status: Active Protocol: Document 01/08/19 13:00 AB (Rec: 01/08/19 13:28 AB [id number]) Subjective Physical Therapy Visit Type Type Treatment Note Visit Start Time 13:00 Visit Stop Time 13:17 Total Visit Minutes 17 Number of BUSINESS BANKING SALES ASSISTANT Visits 0 Physical Therapy Visit Comments Patient Comments NAC stated that pt needs assistance to get onto the w/c . Therapy Pain Assessment Pain When Pain Assessed During Mobility Pain Present Pain Present Pain Reported Location right hip Scale Used pain scale not stated Pain Management Techniques Distraction Modification of Treatment M4 PT-IP Mobility and Gait Start: 01/07/19 16:33 Freq: NEEDED Status: Active Protocol: Document 01/08/19 13:00 AB (Rec: 01/08/19 13:28 AB [id number]) PT-Bed Mobility Assessment Supine to Sit Supine to Sit Maximum Assistance 1 Person Assistance 2 Person Assistance Head of Bed Elevated Scooting Scooting to Edge of Bed Maximum Assistance PT-Transfer Assessment Equipment Transfer Assistive Device Gait Belt Sliding Board Orthotic/Prosthetic Devices or Brace: No Transfers Transfer Destination Wheelchair Transfer Technique slide board transfer Transfer Ability Level of Assist Minimal Assistance Comments Mobility Comments pt completed supine to sit with HOB elevated max A x 1-2 and max cues. pt was able to sit on EOB min to mod A to maintain sitting balance initially but only required CGA after repositioning. positioned w/c and slide board and pt was able to scoot to the w/c with min A and max cues. positioned pt on the w/ c. left pt with NAC. M5 PT-IP Objective Assessments Start: 01/07/19 16:33 Freq: NEEDED Status: Active Protocol: Document 01/07/19 15:10 AB (Rec: 01/07/19 16:54 AB [email or web address]) Orientation Orientation/Cognition Level of Alertness Alert Orientation Name Place Safety Awareness Decreased Safety Awareness Memory Description Short Term Impaired Comments pt with slight confusion Gross Range of Motion Lower Extremity ROM Assessment Within Functional Limits Impairments increase R hip tightness/ guarding during PROM Strength Lower Extremity Strength Assessment Right Impaired Hip 3-/5 Knee 3-/5 Coordination Assessment Gross Coordination Gross Coordination WNL Sensation Assessment Sensation Gross Sensation WNL Muscle Tone Muscle Tone WNL Yes M6 PT-IP Treatment Start: 01/07/19 16:33 Freq: NEEDED Status: Active Protocol: Document 01/08/19 10:26 AB (Rec: 01/08/19 11:39 AB [id number]) Physical Therapy Treatment Exercises Exercises Quad Sets Heel Slides Education Education Provided Weight Bearing Status Safety M7 PT-IP Assessment and Plan Start: 01/07/19 16:33 Freq: NEEDED Status: Active Protocol: Document 01/08/19 13:00 AB (Rec: 01/08/19 13:28 AB [id number]) PT Summary Assessment and Plan Potential Rehabilitation Potential Good Summary Impairments Pain ROM Strength Balance Coordination Sensation Tone Cognition Bed Mobility Transfers Gait Activity Tolerance Progress Towards Goals Slow Progress due to Pain Slow Progress due to Medical Issues Slow Progress due to Activity Tolerance Assessment Summary pt discharging to [facility] today. assisted with slide board transfer and required min A with sliding over but required max for set up. Goals Bed Mobility Goal Minimal Assistance Transfer Goal Minimal Assistance Front Wheeled Walker Gait Goal Minimal Assistance Front Wheel Walker Gait Distance 100 Days to Meet Goals 10 Frequency of Treatment Frequency Of Treatment Twice a Day Treatment Plan Physical Therapy Treatment Plan Bed Mobility Training Transfer Training Gait Training Therapeutic Exercise Balance Retraining Post Op Education Discharge Planning Hot or Cold Pack Neuromuscular Re-ed Coordination Retraining Manual Therapy Recommendations To Nursing Amount of Assist Needed PT/OT Assist Only Mechanical Lift Discharge Recommendations PT Discharge Recommendations SNF Rehab
--- NOTE | 2019-01-08 16:23 | PC.NURSE ---
Transfer: Pt not sure if he feels ready for transfer but will if needed. Pt and spouse discussed transfer w/DANIKA Arora and Dr king. Questions answered. Changed dressing to rt leg, has edema in leg and has bruising to scrotum and inner thigh, dressing was saturated. Changed to coversite, has 3 incisions which are all stapled, intact, edges approx. Campuzano has been left in, pt has bph and not mobilizing well. Pt stood with PT, and assist of another. BP prior to standing was 146/73, when he stood up pt reported he felt like passing out and he was returned to bed. BP then while sitting on bed was 113/63, laid down and pt bp returned to 143/64. His dizziness resolved. Dr. King made aware of pt's vital signs and that he felt as if he would pass out when he stood up. No order changes. Pt additionally had pain control issues, medication not effective and his oxycodone was increased to 10mg. Pt thought he was doing better on this dose. he is also receiving robaxin for muscle spasms and he thought that was helping as well. Report called to claudia admitting nurse at [facility]. Reviewed hospital course, discussed labs, current hh, and a repeat hh in 2 days. Discussed diet and fluid restriction due to decreased sodium, lab values given. Reviewed mobility, Pt was unable to tolerate standing for more than a few minutes and MD is aware. Discussed pain concerns pt had, dressing change, current level of mobility and self care. Campuzano has been left in for now. Pt d/c to facility via their van.
== END 2019-01-08 13:55 | DRG 481 ==
LOC: ED 14:34 → AC 15:00
PROVIDERS: Orthopaedic Surgery Foot and Ankle Surgery; Admitting Provider Internal Medicine; Emergency Provider Emergency Medicine; PCP Internal Medicine; Visit Provider Internal Medicine
PROC: 0QS606Z Reposition Right Upper Femur with Intramedullary Internal Fixation Device, Open Approach (ICD-10-PCS; CPT 27245; principal; 2019-01-07 08:45)
DX: M84.451A Pathological fracture, right femur, initial encounter for fracture (principal); D62 Acute posthemorrhagic anemia; E87.1 Hypo-osmolality and hyponatremia; I10 Essential (primary) hypertension; G40.909 Epilepsy, unspecified, not intractable, without status epilepticus; N40.1 Benign prostatic hyperplasia with lower urinary tract symptoms; R42 Dizziness and giddiness; F10.20 Alcohol dependence, uncomplicated; W18.30XA Fall on same level, unspecified, initial encounter; Y92.89 Other specified places as the place of occurrence of the external cause; Z87.891 Personal history of nicotine dependence
CPT/HCPCS: 36415; 51701; 70496; 70498; 73502; 73552; 76000; 80048; 80053; 82962; 83735; 85025; 85610; 85730; 93005; 94762; 96361; 96374; 97162; 97530; 99285; J0690; J1170; J1200; J1650; J1885; J2274; J2704; J2920; J3010; Q9967

== ENCOUNTER → 2019-02-25 12:37 | Outpatient (CLI) | payer MEDICARE, OTHER, SELFPAY ==
[2019-01-05 16:24] VITALS: BMI 23.6
== END ==
PROVIDERS: PCP Internal Medicine; Visit Provider Internal Medicine
DX: M85.852 Other specified disorders of bone density and structure, left thigh (principal); Z87.891 Personal history of nicotine dependence
CPT/HCPCS: 77080; 77081

== ENCOUNTER 2019-03-02 05:21 | Emergency (ER) | payer MEDICARE, OTHER, SELFPAY ==
[2019-01-05 16:24] VITALS: BMI 23.6
[2019-03-02 05:25] VITALS: BP 152/76; PULSE 73; RESP 16; TEMP 36.7; O2SAT 97; BMI 25.1
--- NOTE | 2019-03-02 05:52 | DI.US.S_ITS ---
PROCEDURE: US PERIP VENOUS LOW EXTREM RT INDICATIONS: PAIN POST HIP SURGERY TECHNIQUE: Real-time imaging, as well as color and pulse Doppler interrogation, were performed of the lower extremity deep veins from the inguinal ligament to the popliteal fossa. COMPARISON: [facility], , [facility] VENOUS LOW EXTREM RT, 08/26/2018, 16:45. FINDINGS: The common femoral, femoral and popliteal veins are normally compressible, and free of intraluminal thrombus. Color and pulse Doppler demonstrate normal phasic intraluminal flow. There is normal augmentation response to distal compression maneuver. IMPRESSION: No right lower extremity DVT. Dictated by: Gilberto Delatorre M.D. on 03/02/2019 at 7:33 Approved by: Gilberto Delatorre M.D. on 03/02/2019 at 7:36
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
[2019-03-02 06:30] VITALS: BP 146/60; PULSE 63; RESP 16; O2SAT 99
[2019-03-02 07:15] VITALS: BP 154/72; PULSE 70; RESP 16; O2SAT 98
== END 2019-03-02 07:19 | disposition home or self-care (01) ==
PROVIDERS: Emergency Provider Emergency Medicine; PCP Internal Medicine
DX: M79.661 Pain in right lower leg (principal)
CPT/HCPCS: 93971; 99282; 99284

== ENCOUNTER → 2019-04-24 15:40 | Outpatient (CLI) | payer MEDICARE, OTHER, SELFPAY ==
[2019-01-05 16:24] VITALS: BMI 23.6
--- NOTE | 2019-04-24 | DI.CT.S_ITS ---
PROCEDURE: CT PEL WO CON INDICATIONS: Displaced intertrochanteric fracture of right femur TECHNIQUE: Noncontrast 3 mm axial sections acquired through the bony pelvis, with coronal and sagittal reformatting. COMPARISON: Pelvic radiographs 03/31/2019. FINDINGS: Image quality: Excellent. Bones: Impacted comminuted fracture of the right intratrochanteric hip. Dynamic hip screw is in the expected position. Intramedullary femoral leyla is in the expected position. The fracture overall appear similar to 03/31/2019. The distal femoral stem is not included on this exam. No hip dislocation. Moderate bilateral hip degenerative change. Moderate degenerative change at the pubic symphysis. The SI joints are symmetric. Lower lumbar spine facet joint hypertrophy. Soft tissues: Bowel anastomosis in the right lower quadrant. Calcified epiploic appendage in the left lower quadrant. There is increased stool in the colon and no free fluid. Air in the urinary bladder presumably from catheterization. The prostate gland is enlarged. Mild subcutaneous edema. IMPRESSION: Stable appearance of the right intertrochanteric fracture and hardware. Increased stool in the colon. Air in the urinary bladder presumably from catheterization. Dictated by: Gilberto Delatorre M.D. on 04/24/2019 at 16:32 Approved by: Gilberto Delatorre M.D. on 04/24/2019 at 16:39
== END ==
PROVIDERS: PCP Internal Medicine; Visit Provider Orthopaedic Surgery Foot and Ankle Surgery
DX: S72.141D Displaced intertrochanteric fracture of right femur, subsequent encounter for closed fracture with routine healing (principal); M16.0 Bilateral primary osteoarthritis of hip; Z98.0 Intestinal bypass and anastomosis status
CPT/HCPCS: 72192

== ENCOUNTER → 2019-04-29 12:06 | Outpatient (CLI) | payer MEDICARE, OTHER, SELFPAY ==
[2019-01-05 16:24] VITALS: BMI 23.6
[2019-04-29 12:59] LABS: Hemoglobin 12.5 g/dL (13.5-17.5)
[2019-04-29 13:22] LABS: Hemoglobin A1C% w Est Avg Glu 5.8 % (4.0-6.0)
[2019-04-29 13:34] LABS: Alanine Aminotransferase 19 IU/L (<50); Albumin 3.3 g/dL (3.5-5.0); Albumin Globulin Ratio 1.6 (1.0-2.8); Alkaline Phosphatase 79 U/L (38-126); Aspartate Aminotransferase 23 IU/L (17-59); Bilirubin Total 0.5 mg/dL (0.2-1.3); Blood Urea Nitrogen 24 mg/dL (9-20); Calcium 8.5 mg/dL (8.4-10.2); Carbon Dioxide 31 mmol/L (22-32); Chloride 103 mmol/L (98-107); Cholesterol 81 mg/dL (140-199); Estimated Glomerular Filt Rate > 60.0 mL/min (>60); Globulin 2.1 g/dL (1.7-4.1); Glucose 67 mg/dL (80-110); HDL Cholesterol 45 mg/dL (40-60); HEMOLYSIS < 15 (0-50); LDL Cholesterol Calculated 28 mg/dL (<100); Potassium 3.8 mmol/L (3.4-5.1); Sodium 139 mmol/L (137-145); Total Protein 5.4 g/dL (6.3-8.2); Triglycerides 41 mg/dL (35-150)
== END ==
PROVIDERS: PCP Internal Medicine; Visit Provider Internal Medicine
DX: I10 Essential (primary) hypertension (principal); E11.9 Type 2 diabetes mellitus without complications; N40.0 Benign prostatic hyperplasia without lower urinary tract symptoms; Z01.818 Encounter for other preprocedural examination
CPT/HCPCS: 36415; 80053; 80061; 83036; 85018

== ENCOUNTER 2019-11-04 15:43 | Inpatient (IN) | payer MEDICARE, OTHER, SELFPAY ==
[2019-01-05 16:24] VITALS: BMI 23.6
[2019-11-04 15:51] VITALS: BP 192/90; PULSE 63; RESP 16; TEMP 37.1; O2SAT 97; BMI 23.0
--- NOTE | 2019-11-04 15:52 | DI.CT.S_ITS ---
PROCEDURE: CT HEAD/BRAIN WO CON INDICATIONS: Fall 4 days ago now with slurred speech and gait disturbance TECHNIQUE: Noncontrast 4.5 mm thick angled axial sections acquired from the foramen magnum to the vertex, with coronal and sagittal reformats. For radiation dose reduction, the following was used: automated exposure control, adjustment of mA and/or kV according to patient size. COMPARISON: [facility]ed [facility], CT, HEAD WITHOUT CONTRAST, 01/01/2014, 6:22. FINDINGS: Image quality: Excellent. CSF spaces: Basal cisterns are patent. No extra-axial fluid collections. The ventricles are symmetric in size and shape. Brain: No intracranial bleeds or masses. There is cerebral volume loss for age, with resultant ventricular and sulcal prominence. There are periventricular and deep white matter chronic small vessel ischemic changes. The there is a lacunar infarct in the left thalamus which was not present previously. There is intracranial internal carotid artery atherosclerosis. Skull and face: Calvarium and visualized facial bones appear intact, without suspicious lesions. Sinuses: Visualized sinuses and mastoids are clear. IMPRESSION: 1. No CT evidence of acute intracranial process. 2. 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 The Dictated by: Ale Escobar M.D. on 11/04/2019 at 16:25 Approved by: Ale Escobar M.D. on 11/04/2019 at 16:32
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
[2019-11-04 16:30] VITALS: BP 182/80; PULSE 60; RESP 16; O2SAT 97
[2019-11-04 16:34] LABS: Add Manual Diff / Slide Review NO; Basophils Absolute Auto 0 /uL (0-100); Basophils Percent Auto 0.6 % (0-2); Eosinophils Absolute Auto 400 /uL (0-450); Eosinophils Percent Auto 5.3 % (2-4); Hemoglobin 11.1 g/dL (13.5-17.5); Lymphocytes Absolute Auto 1500 /uL (1100-4500); Lymphocytes Percent Auto 20.9 % (25-40); Mean Corpuscular HGB Conc 32.8 % (30-36); Mean Corpuscular Hemoglobin 26.5 PG (26-34); Mean Corpuscular Volume 80.7 fL (80-100); Monocytes Absolute Auto 700 /uL (0-900); Monocytes Percent Auto 9.7 % (3-14); Neutrophils Absolute Auto 4500 /uL (1500-7000); Neutrophils Percent Auto 63.5 % (50-75); Platelet Count 271 X10^3/uL (150-400); Red Blood Cell Count 4.21 X10^6/uL (4.5-5.9); Red Cell Distribution Width 17.9 % (11.6-14.8); White Blood Cell Count 7.1 X10^3/uL (4.5-11.0)
[2019-11-04 16:42] LABS: INR 1.1 (0.9-1.3); Prothrombin Time 13.1 SECONDS (10.1-12.7)
[2019-11-04 16:45] LABS: PTT Partial Thromboplastin Tim 31 SECONDS (26.4-36.2)
[2019-11-04 16:46] LABS: Alanine Aminotransferase 21 IU/L (<50); Albumin 3.4 g/dL (3.5-5.0); Albumin Globulin Ratio 1.6 (1.0-2.8); Alkaline Phosphatase 59 U/L (38-126); Aspartate Aminotransferase 30 IU/L (17-59); BUN Creatinine Ratio 33.3 (6-22); Bilirubin Total 0.4 mg/dL (0.2-1.3); Blood Urea Nitrogen 17 mg/dL (9-20); Calcium 8.5 mg/dL (8.4-10.2); Carbon Dioxide 29 mmol/L (22-32); Chloride 104 mmol/L (98-107); Estimated Glomerular Filt Rate > 60.0 mL/min (>60); Globulin 2.1 g/dL (1.7-4.1); Glucose 126 mg/dL (80-110); HEMOLYSIS < 15 (0-50); Lipase 44 U/L (23-300); Potassium 3.8 mmol/L (3.4-5.1); Sodium 136 mmol/L (137-145); Total Protein 5.5 g/dL (6.3-8.2)
[2019-11-04 18:00] VITALS: BP 185/80; PULSE 60; RESP 20; O2SAT 98
[2019-11-04 18:42] VITALS: BMI 22.4
[2019-11-04 19:00] VITALS: BP 172/91; PULSE 63; RESP 20; TEMP 36.7; O2SAT 99
--- NOTE | 2019-11-04 19:05 | PC.ADMIT ---
[email or web address] Admission Note: The patient,Maikol Hutchison,79 y/o, was given written information regarding hospital policies, unit procedures and contact persons. Patient's smoking status: Former smoker. Pt arrived to room 203 via stretcher from ED. Ambulated with own 4 wheel walker to bathroom to void. Brief changed. Trans to bed. Oriented to room and call system. Supportive at bedside. Call light within reach. Pt verbalized he will call for needs. Vital Signs - 8 hr 11/04/19 15:51 11/04/19 16:30 11/04/19 18:00 Temperature 98.7 F Pulse Rate 63 60 60 Respiratory Rate 16 16 20 Blood Pressure 192/90 H Blood Pressure [Left Arm] 182/80 H 185/80 H Pulse Oximetry 97 97 98
--- NOTE | 2019-11-04 22:22 | DI.MRI.S_ITS ---
PROCEDURE: MR STROKE Pre- and post-contrast brain MRI, non-contrast brain MR angiogram, pre- and postcontrast neck MR angiogram INDICATIONS: r/o stroke TECHNIQUE: Brain: Noncontrast axial T1 spin echo, axial T2 fast spin echo, sagittal and axial FLAIR, coronal T2 fast spin echo, axial gradient echo, axial diffusion and ADC through the brain. After the administration of contrast, axial 3D VIBE of the cranial vasculature and brain. Brain MRA: Non-contrast 3-D time of flight MR angiogram, with multiple ftegaba-yohzytrao-klqzgsqeer (MIP) reformats performed. Neck MRA: Axial and sagittal TruFISP through the neck. Coronal dynamic MR angiogram during administration of contrast in the arterial and venous phases, with 3-dimenstional dvpyogz-ujojrzzih-arkqoknnga (MIP) reformats constructed from subtraction images. COMPARISON: [facility], EC, ECHOCARDIOGRAM COMPLETE, 01/01/2014, 14:54. [facility], MR, STROKE PROTOCOL, 10/30/2013, 16:14. [facility], CT, CT HEAD/BRAIN WO CON, 11/04/2019, 15:49. [facility], MR, STROKE PROTOCOL, 01/01/2014, 11:38. FINDINGS: Image quality: Excellent. BRAIN: CSF spaces: Ventricles are normal in size and shape. Basal cisterns are patent. No extra-axial fluid collections. Brain: There is focal abnormal diffusion weighted signal seen within the left thalamus measuring up to 1.3 cm, as on series 20 image 63. There is associated dark signal seen on the ADC maps. There is developing T2-weighted signal seen within this focus. No intracranial bleeds or mass effects. [place]-white matter interface is normal. Brainstem appears normal. Normal intravascular flow voids are present. No abnormal intracranial enhancement. Skull and face: Calvarial marrow signal is normal. Orbits appear normal. Note is made of bilateral lens replacements. Sinuses: No significant paranasal sinus abnormality is seen. There is prominent left mastoid air cell fluid seen. BRAIN MR ANGIOGRAM: Anterior circulation: Intracranial internal carotid arteries are normal in size and enhancement. The flow within the paired anterior cerebral arteries is normal and symmetric. The flow within the middle cerebral arteries is normal and symmetric. The anterior communicating artery is seen. No stenoses, occlusions, or aneurysms. Posterior circulation: The visualized portions of the vertebral arteries are unremarkable. The left vertebral artery is dominant to the right. The right vertebral artery largely terminates in the right posterior inferior cerebellar artery. There is a normal appearing basilar artery. There is a prominent right posterior communicating artery seen, with an accompanying diminutive right P1 segment. This is attributed to a type origin of the right posterior cerebral artery, which is considered to be a normal developmental variant of typically no clinical consequence. The flow within the posterior cerebral arteries is normal and symmetric. No stenoses, occlusions, or aneurysms. NECK MR ANGIOGRAM: Carotids: Incidental note is made of a common origin of the right brachiocephalic artery and the left common carotid artery (bovine type arch). This is considered to be a developmental variant of no clinical consequence. The origins of the common carotid arteries appear patent. The calibers and courses of both common carotid arteries are normal. The bifurcation regions appear normal bilaterally. The internal carotid arteries demonstrate normal course and caliber. Posterior circulation: The origins of the vertebral arteries appear patent. More superior portions of both vertebral arteries demonstrate normal course and caliber. The left vertebral artery is dominant the right. Miscellaneous: Subclavian arteries appear patent. Pre-contrast images through the neck show no soft tissue abnormalities. IMPRESSION: BRAIN MRI: Subacute infarction seen involving the left thalamus. Prominent left mastoid air cell fluid is seen. Please correlate with potential clinical findings of mastoiditis. Note is made of age-appropriate brain parenchymal volume loss and chronic small vessel ischemic changes. BRAIN MR ANGIOGRAM: No significant intracranial arterial abnormality is seen. [place] development anomalies are noted, which are unlikely to be clinically significant. NECK MR ANGIOGRAM: Within the arteries of the neck, no hemodynamically significant stenosis can be seen. Dictated by: Monroe Roe M.D. on 11/05/2019 at 10:40 Approved by: Monroe Roe M.D. on 11/05/2019 at 10:47
--- NOTE | 2019-11-04 22:24 | DI.ECHO.S_ITS ---
[place] [facility]---------+ [facility] +---------+ : : [address] : : : : [id number] : : : : Phone: [phone] Echocardiogram Report + + :Name: ROSINA DUBOIS Study Date: 11/05/2019 Height: 72 in : :[facility] Weight: 165 lb : : Gender: Male BSA: 2.0 m2 : :: 1940 Age: 79 yrs BP: 172/91 mmHg: :Reason For Study: R/O EMBOLIC FOCUS : : Performed By: Jose Sims : :Referring: RYLIE SHERIFF : + + Interpretation Summary Left ventricular systolic function is borderline reduced with an estimated ejection fraction of 50 to 55% with a mild dyssynchronous contraction pattern, consistent with a conduction abnormality, which is new from the previous exam. There is mild hypokinesis in the proximal and mid posterolateral and posterior wall which was not evident on the previous exam although image quality was quite poor previously. There are no other focal wall motion abnormalities. Systolic function appears to be slightly less robust compared to the previous exam. Diastolic parameters suggest a relaxation abnormality of the left ventricle but probable normal filling pressures. The right ventricle grossly appears normal and unchanged from the previous study. Right ventricular systolic pressure cannot be estimated but CVP is estimated to be around 3 mmHg. There is severe left atrial enlargement and mild right atrial enlargement and both have increased in size since the previous study. There is mild aortic valve stenosis which is progressive since the previous study now with a peak transvalvular velocity of 2.6 m/s and a gradient of 16 mmHg. There are no other valvular abnormalities. There is scattered calcifications noted within the aortic arch, suggesting atherosclerotic disease. Procedure: A two-dimensional transthoracic echocardiogram with color flow and Doppler was performed. The study quality was technically good. Comparison is made with the echocardiogram of 01/01/14. The patient was in normal sinus rhythm during the exam. Left Ventricle: The left ventricle is normal in size and wall thickness. Left ventricular systolic function is borderline reduced. The ejection fraction is estimated to be 50-55%. There is a mild dyssynchronous contraction pattern, consistent with a conduction abnormality. Mild hypokinesis in the proximal and mid posterolateral and posterior wall which was not evident on the previous exam although image quality was quite poor. There are no other focal wall motion abnormalities. Systolic function appears to be slightly less robust compared to the previous study. Diastolic parameters suggest a relaxation abnormality of the left ventricle, consistent with probable normal filling pressures. Right Ventricle: The right ventricle is normal in size and function. This is unchanged compared to the previous study. Atria: The left atrium is severely dilated. Both atria have mildly increased in size since the prior echo exam. The right atrium is mildly dilated. The interatrial septum is intact with no evidence for an atrial septal defect. Mitral Valve: There is mild mitral annular calcification. There is trace mitral regurgitation. Aortic Valve: The aortic valve is trileaflet. The aortic valve is moderately calcified. There is moderately reduced leaflet mobility. There is mild aortic stenosis. The peak aortic velocity is 2.56 m/sec. The aortic valve mean gradient is 16 mmHg. The calculated aortic valve area is 1.5 cm2. This is progressive compared to the previous study. No aortic regurgitation is present. Tricuspid Valve: The tricuspid valve is normal in structure and function. There is a trace or physiologic amount of tricuspid regurgitation. Pulmonary artery pressures cannot be estimated because of the lack of a measurable TR jet velocity but the IVC suggests a CVP of around 3 mmHg. Pulmonic Valve: The pulmonic valve is not well visualized. There is no pulmonic valvular regurgitation. There is no other significant valvular heart disease. Great Vessels: The aortic root is normal size. The dimensions of the ascending aorta are normal. Mild atherosclerotic plaque(s) in the aortic arch. The pulmonary artery is normal size. The IVC is of normal diameter and collapses greater than 50% with a sniff. This suggests a low right atrial pressure of 3 mm Hg. Pericardium/ Pleura There is no pericardial effusion. There is no pleural effusion. MMode/2D Measurements & Calculations LVIDd: 4.8 cm LVOT diam: 2.2 cm LVIDs: 2.9 cm Ao root diam: 3.3 cm FS: 38.5 % asc Aorta Diam: 3.1 cm EPSS: 1.1 cm Ao Arch Diam (Prox Trans): 2.7 cm IVSd: 1.0 cm LVPWd: 1.0 cm LV fleming. diameter/BSA (cm/m^2): 2.4 LV sys. diameter/BSA (cm/m^2): 1.5 LA dimension: 4.7 cm RA long axis: 5.6 cm LA A2 area: 31.6 cm2 RA area: 22.5 cm2 LA A4 area: 27.4 cm2 RA vol: 76.6 ml LA length (vol): 6.5 cm RA : 39.0 ml/m2 LA vol: 113.7 ml IVC diam: 1.6 cm LA vol index: 57.9 ml/m2 RVD1 (basal): 3.8 cm RVD2 (mid): 4.4 cm Doppler Measurements & Calculations Ao V2 max: 256.7 cm/sec LVOT Max Kevin: 102.3 cm/sec Ao V2 mean: 192.4 cm/sec LV V1 max P.2 mmHg Ao max P.4 mmHg LV V1 VTI: 23.5 cm Ao mean P.1 mmHg BECKY(I,D): 1.4 cm2 Ao V2 VTI: 62.2 cm BECKY(V,D): 1.5 cm2 sev ratio: 0.38 BECKY indexed to BSA (cm^2/m^2): 0.74 MV E max kevin: 76.5 cm/sec PA V2 max: 90.2 cm/sec MV A max kevin: 87.5 cm/sec PA V2 mean: 71.0 cm/sec MV E/A: 0.87 PA mean P.1 mmHg Med Peak E' Kevin: 4.2 cm/sec PA pr(Accel): 1.9 mmHg E/E' med: 18.2 Lat Peak E' Kevin: 8.4 cm/sec E/E' lat: 9.1 E/e' average: 13.6 MV dec time: 0.34 sec SV(LVOT): 89.9 ml Reading Physician:PM
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
[2019-11-04] MEDS: DOXAZOSIN 4 MG TABLET 8 MG PO (23:00)
[2019-11-04] MEDS: ENOXAPARIN 40 MG/0.4 ML SYRINGE SUBCUT (23:00)
[2019-11-04] MEDS: ATORVASTATIN 20 MG TABLET PO (23:00)
[2019-11-04 23:30] VITALS: BP 161/80; PULSE 67; RESP 18; TEMP 37.1; O2SAT 96
[2019-11-05 00:43] LABS: Hemoglobin A1C% w Est Avg Glu 6.1 % (4.0-6.0)
[2019-11-05 01:01] LABS: Cholesterol 89 mg/dL (140-199); HDL Cholesterol 38 mg/dL (40-60); LDL Cholesterol Calculated 39 mg/dL (<100); Triglycerides 58 mg/dL (35-150)
--- NOTE | 2019-11-05 01:33 | PC.NURSE ---
Patient seen and assessed at 2355. Is alert and oriented except to date although did know year. Is RAMPART. Breath sounds CTA with RA sat of 96%. HRR with telemetry reading of SR w/BBB. Denies nausea. BT present and is passing flatus. Is able to move self in bed. Uses walker and 2 assist when getting up to bathroom as right leg is shorter than left so has difficulty walking without built up shoe on and not wanting to put them on tonight. Denies dysuria or frequency but states he does have urinary urgency. Denies pain. Lacerations to posterior head with dried blood. Bruising noted to elbows and small bruise on left buttock. Had been having frequent falls at home. NIH score is 3 for slurred speech and not knowing what month it is. Fall risk score is high and bed alarm is activated.
[2019-11-05 05:42] VITALS: BP 149/73; PULSE 70; RESP 18; TEMP 36.6; O2SAT 96
[2019-11-05 07:45] VITALS: BP 147/77; PULSE 65; RESP 16; TEMP 36.2; O2SAT 96
[2019-11-05] MEDS: MAGNESIUM OXIDE 400 MG TABLET PO (08:43)
[2019-11-05] MEDS: lamoTRIgine 25 MG CHEW TABLET PO (08:43)
[2019-11-05] MEDS: lisinopriL 5 MG TABLET PO (08:43)
[2019-11-05] MEDS: ENOXAPARIN 40 MG/0.4 ML SYRINGE SUBCUT (08:43)
[2019-11-05] MEDS: ASPIRIN EC 81 MG TABLET PO (08:43)
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
[2019-11-05 11:22] VITALS: BP 152/79; PULSE 77; RESP 16; TEMP 36.3; O2SAT 98
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
[2019-11-05 15:36] VITALS: BP 125/78; PULSE 70; RESP 17; TEMP 36.4; O2SAT 97
--- NOTE | 2019-11-05 16:06 | P.PN_ITS ---
Subjective Subjective Date Patient Seen: 11/05/19 Interval history: Maikol Hutchison 79-year-old male with past medical history significant for hypertension, seizure disorder, BPH, and alcohol dependence who presented to the ED for slurred speech and recent fall. The patient is resting in bed comfortably. Informed the patient and his that his MRI demonstrated left thalamic stroke. Discussed stroke prevention. Plan to continue to monitor closely on telemetry. Patient reports remote history of an ?extra heartbeat. Patient had recent fall and trouble with balance which now he reports has resolved. He continues to exhibit slurred speech and dysarthria. He denies trouble with word finding. He has no other complaints and denies headache, cough, shortness of breath, chest pain, abdominal pain, nausea, vomiting, fever, chills, dysuria, diarrhea or constipation. He is voiding and eliminating without difficulty. He is up ambulating with assistance. Exam Vital Signs (past 8 hours): - 11/05/19 11:22 11/05/19 15:36 Temperature 97.4 F L 97.6 F Pulse Rate 77 70 Respiratory Rate 16 17 Blood Pressure 152/79 H 125/78 Pulse Oximetry 98 97 Oxygen Delivery Method Room Air Oxygen Flow Rate 0 Narrative Exam Narrative: General: Elderly thin gentleman sitting in bed and in no acute distress, well- developed, well-nourished, appropriately interactive. HEENT: Normocephalic, atraumatic. External ears without defect. Pupils equal, round, and reactive to light. Anicteric sclerae, moist conjunctivae, and no lid lag. Neck: Supple with full range of motion. No jugular venous distension. No lymphadenopathy or thyromegaly. Cardiovascular: Regular rate and rhythm with holosystolic murmur radiating to carotids bilaterally. No rubs or gallops appreciated Pulmonary: Clear to auscultation bilaterally without crackles, wheezes, or rhonchi. Normal respiratory effort with no use of accessory muscles. Abdomen: Soft, bowel sounds present, nontender, nondistended. No hepatosplenomegaly or masses appreciated. Extremities: No clubbing, cyanosis, or edema. Skin: Normal temperature, turgor, and texture; no rash, ulcers, or subcutaneous nodules appreciated. Seborrheic keratoses scattered throughout body. Neurological: Cranial nerves grossly intact. Slurred speech and dysarthria. No facial droop. Cerebellar function intact with [id number] and [id number]. Normal strength in all 4 extremities without focal deficit. Normal DTRs and Babinski's. Psychiatric: Normal mood and affect. Alert and oriented to person, place, and time. Objective Labs Result Diagrams: 11/04/19 16:24 11/04/19 16:24 Labs: Laboratory Results - last 24 hr 11/04/19 11/04/19 16:24 16:24 Hemoglobin A1c 6.1 H Triglycerides 58 Cholesterol 89 L LDL Cholesterol, Calc 39 HDL Cholesterol 38 L Assessment & Plan Assessment & Plan narrative: Maikol Hutchison 79-year-old male with past medical history significant for hypertension, seizure disorder, BPH, and alcohol dependence who presented to the ED for slurred speech and recent fall. 1. Acute left thalamic CVA, present on admission. Active. -Patient presented after recent ground level fall and noticed slurred speech. -NIH 2. Continue to monitor neurological status closely. -CT brain without contrast did not demonstrate any acute intracranial abnormality. -MR stroke protocol demonstrated subacute infarction seen involving the left thalamus. Noted prominent left mastoid air cell fluid is seen. Age-appropriate brain parenchymal volume loss and chronic small vessel ischemic changes. No significant intracranial arterial abnormality is seen. [place] development anomalies are noted, which are unlikely to be clinically significant. No hemodynamically significant stenosis within the arteries of the neck. -Echocardiogram did not demonstrate interatrial shunt or embolic source. Of note, patient had borderline reduced LV function with EF 50- 55%, a mild dyssynchronous contraction pattern, consistent with a conduction abnormality, which is new from the previous exam and mild mild aortic valve stenosis which is progressive since the previous study now with a peak transvalvular velocity of 2.6 m/s and a gradient of 16 mmHg and scattered calcifications noted within the aortic arch, suggesting atherosclerotic disease. -EKG demonstrated sinus rhythm versus ectopic atrial rhythm with right bundle branch block and without acute ischemic changes. Continue to monitor closely on telemetry. Patient in sinus rhythm without significant ectopy. -Risk stratified with hemoglobin A1c 6.1% indicative of prediabetes and fasting lipid panel which demonstrated excellent lipid control: Total cholesterol 89, triglycerides 58, LDL 39 and HDL 38. -Restarted and continue aspirin 81 mg daily (patient was previously took aspirin but was discontinued as there was no indication) and started and continue atorvastatin 20 mg daily at bedtime for stroke prophylaxis. Low threshold to start anticoagulation for possible arrhythmia. Consider outpatient event monitor. 2. Hypertension, chronic, present on admission. Stable. -Continue lisinopril 5 mg daily in the evening. 3. Prediabetes, newly found, present on admission. Stable. -Hemoglobin A1c 6.1% indicative of prediabetes. -Counseled the patient extensively on lifestyle modification including: Diet and exercise. -Ordered dietitian consult, pending. 4. Seizure disorder, chronic, present on admission. Stable. -Patient has history of seizure disorder with last seizure at least 5 years ago and without a known cause for seizures. -Continue lamotrigine 25 mg in the morning and 50 mg in the evening. 5. BPH, chronic, present on admission. Stable. -Continue doxazosin 8 mg daily at bedtime and trospium 20 mg twice daily. 6. Alcohol dependence, chronic, present on admission. Stable. -Patient reports he drinks 1-2 beers nightly. -He has no history of alcohol withdrawal, DTs or alcohol withdrawal seizure. -Continue to monitor closely for signs of alcohol withdrawal and have a low threshold to initiate CIWA protocol. 7. Normocytic anemia, chronic, present on admission. Active. -Initial hemoglobin 11.1 mildly below previous baseline and likely due to anemia of chronic disease. No overt signs of bleeding. -Continue to monitor blood counts periodically. Code status: DNR/DNI DVT prophylaxis: Enoxaparin Disposition: Patient will likely discharge home tomorrow versus long-term facility (patient adamantly refused SNF today) pending close monitoring of heart rhythm. Quality VTE Deep Vein Thrombosis/Pulmonary Embolism Present on Admission: No Scores NIHSS Level of Conciousness: Alert, keenly responsive Ask month/age: Answers both questions correctly. Open/close eyes, close hand: Performs both tasks correctly Best gaze horizontal: Normal Visual carlson: No visual loss Facial palsy: Normal symetrical movement Left arm drift: No drift for full 10 sec Right arm drift: No drift for full 10 sec Left leg drift: No drift for full 5 sec Right leg drift: No drift for full 5 sec Limb ataxia: Absent Sensory on face/arms/legs: Normal, no sensory loss Best language: Mild to moderate, slurs some words Dysarthria: Mild to mod,some slurring Extinction or inattention: No abnormality Total NIH Stroke scale score: 2
--- NOTE | 2019-11-05 16:07 | CM.IDA ---
Initial DCP Assessment Note: Patient is an 79 yo male, resident of [place]. Patient is admitted inpatient after suffering an acute CVA (MRI confirmed) PCP: Konrad Shaw Payer: YASH/Nara Reviewed chart. Met w/patient and his Kristin this morning, introduced role. During this visit, patient had been up walking w/KAMINI Poole w/ walker and returned to his room to prepare for his MRI. Spouse Kristin suggested at this time that she was planning on taking patient back home upon medical clearance. She stated patient lives mostly a sedentary life but is able to self transfer and walk w/ cane or FWW around their home when he does get up. Per chart review, patient/spouse admitted to PT that patient has fallen 3 times at home very recently. Per discussion w/Delaney, PT this afternoon; patient's MRI confirms an acute CVA, therapy team is recommending SNF vs Acute Inpatient Rehab. This TALENT ANALYST returned to patient's room to review Dispo options and patient/spouse expressed concern that they had not seen Dr King yet to review results from the MRI. Alerted KAMINI Vang that pt/spouse were upset and suggested this TALENT ANALYST wait until tomorrow to review dispo. ARPAN Trivedi Discharge Planning/Care Management CM Discharge Assessment Start: 11/05/19 15:55 Freq: Status: Active Protocol: Document 11/05/19 15:55 [facility] (Rec: 11/05/19 16:07 [facility] [id number]) Discharge Planning Assessment Assigned Displayer ARPAN Kelley DPOA/Assigned Designee Name Ema Hutchison, spouse Contact Information [phone] Advance Directives? Yes History Provided By Patient,Significant Other, Medical Record Prior Living Arrangements House Household Members spouse Type of transporation used prior to Relies on Others admit Independent with ADL's Yes: Modified. H/o falls at home. Is patient alert and oriented? Yes: Cog screen by LINE INSPECTOR pending Patient/Family Preference [facility] Facility vs Acute Rehab Barriers to Discharge Yes Comment Acute CVA w/ residual deficits Additional Comment pending further conversation w /patient and spouse re: dispo options
[2019-11-05 19:44] VITALS: BP 150/78; PULSE 66; RESP 18; TEMP 36.6
[2019-11-05] MEDS: ATORVASTATIN 20 MG TABLET PO (20:18)
[2019-11-05] MEDS: lamoTRIgine 25 MG CHEW TABLET 50 MG PO (20:19)
[2019-11-05] MEDS: DOXAZOSIN 4 MG TABLET 8 MG PO (20:21)
[2019-11-06 00:05] VITALS: BP 145/76; PULSE 79; RESP 18; TEMP 36.9; O2SAT 96
[2019-11-06 04:10] VITALS: BP 135/70; PULSE 79; RESP 18; TEMP 36.7; O2SAT 96
[2019-11-06 07:46] VITALS: BP 161/67; PULSE 68; RESP 16; TEMP 36.2; O2SAT 97
--- NOTE | 2019-11-06 07:59 | P.DS_ITS ---
History of Present Illness History of Present Illness Date Patient Seen: 11/04/19 Chief complaint: fall/ hit head 3 days ago Narrative: Written by Dr. Montes De Oca: The patient is an 79-year-old male with a history of hypertension, seizure disorder, BPH, vertigo who was in his usual state of health until about a week ago. Patient states that he has a history of falling but fell 1 week ago hitting his head. Patient had his lamotrigine dose decreased by 25% about a week ago. He then noted 3 days ago difficulty with speech. His noted his speech was somewhat slurred. Since that time it has not improved or gotten worse. He denies any weakness in his arms or legs. He has had no facial droop. He has had no choking. He has had no syncope. Patient denies any headache. He has had no chest pain. Or shortness of breath. Because of the persistent slurring of his speech as well as continued falls he was brought into the emergency room for evaluation. The patient reportedly had a NIH stroke scale score of 0. Patient has no prior history of stroke. He does not take an aspirin daily. Discharge Providers Provider Date of admission: 11/04/19 18:38 Discharge Date: 11/06/19 Primary care physician: Konrad Shaw MD Consults: 11/04/19 22:22 Consult to Discharge Planning Routine Comment: Consult to Occupational Therapy Evaluate & Treat Comment: Physician Instructions: Evaluate and treat Consult to Physical Therapy Evaluate & Treat Comment: Physician Instructions: Evaluate and Treat Consult to Speech Therapy Evaluate & Treat Comment: Physician Instructions: Evaluate and treat 11/05/19 22:16 Consult to Dietitian, Adult Routine Comment: Reason For Exam: Prediabetes, stroke Discharge provider: Macy King DO Summary Hospital Course Discharge Diagnosis: 1. Acute left thalamic CVA, present on admission. Improved. 2. Hypertension, chronic, present on admission. Stable. 3. Prediabetes, present on admission. Stable. 4. Seizure disorder, chronic, present on admission. Stable. 5. BPH, chronic, present on admission. Stable. 6. Alcohol dependence, chronic, present on admission. Stable. 7. Normocytic anemia, chronic, present on admission. Active. Hospital Course: Maikol Hutchison 79-year-old male with past medical history significant for hypertension, seizure disorder, BPH, and alcohol dependence who presented to the ED for slurred speech and recent fall. 1. Acute left thalamic CVA, present on admission. Improved. -Patient presented after recent ground level fall and noticed slurred speech. -NIH 2. Continue to monitor neurological status closely. -CT brain without contrast did not demonstrate any acute intracranial abnormality. -MR stroke protocol demonstrated subacute infarction seen involving the left thalamus. Noted prominent left mastoid air cell fluid is seen. Age-appropriate brain parenchymal volume loss and chronic small vessel ischemic changes. No significant intracranial arterial abnormality is seen. [place] development anomalies are noted, which are unlikely to be clinically significant. No hemodynamically significant stenosis within the arteries of the neck. -Echocardiogram did not demonstrate interatrial shunt or embolic source. Of note, patient had borderline reduced LV function with EF 50- 55%, a mild dyssynchronous contraction pattern, consistent with a conduction abnormality, which is new from the previous exam and mild mild aortic valve stenosis which is progressive since the previous study now with a peak transvalvular velocity of 2.6 m/s and a gradient of 16 mmHg and scattered calcifications noted within the aortic arch, suggesting atherosclerotic disease. -EKG demonstrated sinus rhythm versus ectopic atrial rhythm with right bundle branch block and without acute ischemic changes. Continue to monitor closely on telemetry. Patient in sinus rhythm without significant ectopy. -Risk stratified with hemoglobin A1c 6.1% indicative of prediabetes and fasting lipid panel which demonstrated excellent lipid control: Total cholesterol 89, triglycerides 58, LDL 39 and HDL 38. -Restarted and continued aspirin 81 mg daily (patient previously took aspirin but was discontinued as there was no medical indication) and started and continued atorvastatin 20 mg daily at bedtime for stroke prophylaxis. Low th reshold to start anticoagulation for possible arrhythmia. Recommend outpatient event monitor as patient is high risk of atrial fibrillation/flutter and has dyssynchronous pattern that is new on echocardiogram, slightly reduced systolic function with wall motion changes (unclear acuity), mild aortic stenosis, severe left atrial enlargement and moderate right atrial enlargement which have progressed since last study. -Recommend outpatient sleep study for probable sleep apnea and treatment if pres ent. -Continued physical therapy, occupational therapy and speech therapy evaluation and treatment. Recommend continue all therapies as an outpatient. 2. Hypertension, chronic, present on admission. Stable. -Continued lisinopril increased from 5 mg to 10 mg daily in the evening for better blood pressure control. 3. Prediabetes, present on admission. Stable. -Hemoglobin A1c 6.1% indicative of prediabetes. 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 -Counseled the patient extensively on lifestyle modification including: Diet and exercise. -Consulted dietitian and we appreciate her time and recommendations. 4. Seizure disorder, chronic, present on admission. Stable. -Patient has history of seizure disorder with last seizure at least 5 years ago and without a known cause for seizures. -Continued lamotrigine 25 mg in the morning and 50 mg in the evening. 5. BPH, chronic, present on admission. Stable. -Continued doxazosin 8 mg daily at bedtime and trospium 20 mg twice daily. 6. Alcohol dependence, chronic, present on admission. Stable. -Patient reports he drinks 1 beer a night. -He has no history of alcohol withdrawal, DTs or alcohol withdrawal seizure. -Continued to monitor closely for signs of alcohol withdrawal and have a low threshold to initiate CIWA protocol. 7. Normocytic anemia, chronic, present on admission. Active. -Initial hemoglobin 11.1 mildly below previous baseline and likely due to anemia of chronic disease. No overt signs of bleeding. -Continued to monitor blood counts periodically. Exam Vital Signs (past 8 hours): - 11/06/19 00:05 11/06/19 04:10 Temperature 98.4 F 98.0 F Pulse Rate 79 79 Respiratory Rate 18 18 Blood Pressure 145/76 H 135/70 Pulse Oximetry 96 96 Oxygen Delivery Method Room Air Oxygen Flow Rate 0 Narrative Exam Narrative: General: Elderly thin gentleman sitting in bed and in no acute distress, well- developed, well-nourished, appropriately interactive. HEENT: Normocephalic, atraumatic. External ears without defect. Pupils equal, round, and reactive to light. Anicteric sclerae, moist conjunctivae, and no lid lag. Neck: Supple with full range of motion. No jugular venous distension. No lymphadenopathy or thyromegaly. Cardiovascular: Regular rate and rhythm without murmurs, rubs, or gallops appreciated Pulmonary: Clear to auscultation bilaterally without crackles, wheezes, or rhonchi. Normal respiratory effort with no use of accessory muscles. Abdomen: Soft, bowel sounds present, nontender, mildly distended and protuberant. No hepatosplenomegaly or masses appreciated. Extremities: No clubbing, cyanosis, or edema. Skin: Normal temperature, turgor, and texture; no rash, ulcers, or subcutaneous nodules appreciated. Seborrheic keratoses scattered throughout body. Neurological: Cranial nerves grossly intact. Slurred speech and dysarthria. No facial droop. Cerebellar function intact with [id number] and [id number]. Normal strength in all 4 extremities without focal deficit. Normal DTRs and Babinski's. Psychiatric: Normal mood and affect. Alert and oriented to person, place, and time. Objective Labs Result Diagrams: 11/04/19 16:24 11/04/19 16:24 Discharge Plan Discharge Plan Patient Disposition: Home Discharge comment: You are being discharged home. You had a left thalamus stroke which has caused your spine slurred speech and difficulty talking. This may also be contributing to your memory impairment and balance/coordination issues. You have been prescribed aspirin 81 mg daily and atorvastatin 20 mg daily to help prevent future strokes. Recommend heart monitor to assure that you are not having arrhythmias which can cause stroke and you would need to be on a blood thinner instead of aspirin. Also recommend sleep study and treatment of sleep apnea present as this can increase risk of heart attack, stroke, early- onset dementia and difficult to treat high blood pressure. Your lisinopril has been increased from 5 mg to 10 mg to improve blood pressure slightly. Please follow-up with your primary care provider, Dr. shaw, regarding your hospitalization and the next 1-2 weeks. Continue physical, occupational and speech therapy as an outpatient and you will need a referral placed by your primary care provider. Discharge orders & Medications Prescriptions: New atorvastatin [Lipitor] 20 mg Tablet 20 mg PO BEDTIME Qty: 30 RF: 0 polyethylene glycol 3350 17 gram Powder In Packet 17 gram PO DAILY Qty: 30 RF: 0 aspirin 81 mg Tablet,Delayed Release (Dr/Ec) 81 mg PO DAILY Qty: 30 RF: 0 bisacodyl 10 mg Suppository 10 mg DE DAILY PRN (Reason: Constipation) Qty: 10 RF: 0 Continued cyanocobalamin (vitamin B-12) 1,000 mcg/mL solution 1,000 mcg IM QMONTH RF: 0 lamotrigine 100 mg tablet 25 mg PO QAM RF: 0 trospium 20 mg tablet 20 mg PO BID RF: 0 doxazosin 8 mg Tablet 8 mg PO QPM RF: 0 lamotrigine 100 mg tablet 50 mg PO QPM RF: 0 docusate sodium [DOK] 100 mg Capsule 100 mg PO BID Qty: 60 RF: 0 multivitamin [Daily Multi-Vitamin] Tablet 2 tab PO DAILY RF: 0 magnesium 200 mg Tablet 400 mg PO QPM RF: 0 acetaminophen [Tylenol Extra Strength] 500 mg Tablet 500 mg PO Q6H PRN (Reason: Mild Pain (Scale Score 1-4)) RF: 0 Changed lisinopril 5 mg tablet 10 mg PO QPM Qty: 30 RF: 0 Follow up/Referrals: Konrad Shaw MD [Primary Care Provider] - 1 Week Diet/Activity/Treatments Diet: Diet as Tolerated, Carb-consistent/Diabetic, Low-fat, Low-sodium and Low- cholesterol Activity: Activity as tolerated with forward wheeled walker Visit Report/Discharge Packet Instructions: The Mediterranean Diet and Good Health, The DASH Diet, DI for Stroke-Ischemic, DI for Obstructive Sleep Apnea -- Adult, Atorvastatin, Mediterranean Diet May Reduce the Risk of Stroke in People with High Risk o, DI for Prediabetes Visit Report Forms: Patient Portal/API, Stroke Signs & Symptoms Discharge Data Primary Care Provider: Konrad Shaw Quality VTE Deep Vein Thrombosis/Pulmonary Embolism Present on Admission: No
[2019-11-06] MEDS: ASPIRIN EC 81 MG TABLET PO (08:41)
[2019-11-06] MEDS: DOCUSATE 100 MG CAPSULE PO (08:41)
[2019-11-06] MEDS: ENOXAPARIN 40 MG/0.4 ML SYRINGE SUBCUT (08:41)
[2019-11-06] MEDS: polyethylene glycoL 3350 17 GM POWD.PACK PO (08:41)
[2019-11-06] MEDS: MAGNESIUM OXIDE 400 MG TABLET PO (08:42)
[2019-11-06] MEDS: lamoTRIgine 25 MG CHEW TABLET PO (08:43)
[2019-11-06] MEDS: SODIUM CHLORIDE 0.9% FLUSH 10 ML IV (08:43)
[2019-11-06 08:44] VITALS: BP 161/67; PULSE 68
[2019-11-06] MEDS: lisinopriL 5 MG TABLET PO (08:44)
--- NOTE | 2019-11-06 10:43 | DIET.PN ---
Dietary Progress Note Assessment: 79y M admitted for CVA after falling and hitting head at home referred to nutrition for pre-DM (A1c 6.1). Pt reports having Robert-en-y gastric bypass 8y ago r/t morbid obesity, DM2, HLD, pt lost 80# and has maintained wt loss. Pt was never on insulin but was taking other DM meds (metformin). Pt compliant c vitamin regimen for post bariatric maintenence. Pt reports eating [place] for snack, has 1-2 beers nightly. Pt watches sugar intake closely otherwise. Pt has concerns about his chronic constipation and ensuring adequate PRO intake. Pt was drinking Premier Protein shakes but feels they worsen his constipation. HT: 182.8cm WT: 76.9kg UBW: 113kg BMI: 23.0 Labs: A1c 6.1 Interventions: 1. Discussed role of soluble fiber in blood sugar management and reducing constipation, pt enjoys nuts, seeds, split pea soup, beans, encouraged increased intake of these foods along c adequate fluids. 2. Pt considering adding Premier Protein back into diet every other day to support protein needs. Pt can consume 5 whole eggs per week as lipids in good control. Beans, nuts, and seeds all contain good protein as well.
--- NOTE | 2019-11-06 10:51 | ST.IPTN ---
Visit Care Team Role Provider Type Konrad Shaw MD Primary Care Provider Physician Address: [address] [place] [address], [id number] Jourdan Peguero DO Emergency Provider Physician Referring Provider Address: [address] [place] [address], [id number] Macy King DO Admit Provider Physician Attending Provider Address: [address] [place] [address], [id number] [employer]ER Treatment Note BEER COIL CLEANER Treatment Note Start: 11/05/19 13:24 Freq: Status: Active Protocol: Document 11/06/19 10:25 LL (Rec: 11/06/19 10:26 LL [id number]) Speech Pathology Treatment Note Session Time Visit Start Time 09:50 Visit Stop Time 10:20 Total Visit Minutes 30 Setting Treatment Setting Acute Care Visit Type Note Type Treatment Note General Information General Information Per MD report: Maikol is an 79- year-old male with a history of hypertension, seizure disorder, BPH, vertigo who was in his usual state of health until about a week ago. Patient states that he has a history of falling but fell 1 week ago hitting his head. Patient had his lamotrigine dose decreased by 25% about a week ago. He then noted 3 days ago difficulty with speech. His noted his speech was somewhat slurred. Since that time it has not improved or gotten worse. He denies any weakness in his arms or legs. He has had no facial droop. He has had no choking. He has had no syncope. Patient denies any headache. He has had no chest pain. Or shortness of breath. Because of the persistent slurring of his speech as well as continued falls he was brought into the emergency room for evaluation. The patient reportedly had a NIH stroke scale score of 0. Patient has no prior history of stroke. He does not take an aspirin daily. Subjective Identification Type Name,ID Wristband Others Present Family Observations/Patient Presentation Maikol was seen sitting up in his bed talking to his , Ema. He was alert and oriented x 4. Agreeable for ST services. Chief Complaint(s) Speech,Cognitive Patient Knowledge/Awareness of BE[employer] COIL CLEANER Role Good in Treatment Parent/Caretake Knowledge/Awareness of Good BEER COIL CLEANER Role in Treatment Patient/Caregiver Compliance with Home Good Exercise Program Objective Short Term Goals 1. Patient will demonstrate understanding of compensatory strategies for expressive language and speech fluency to improve ability to communicate as per PLOF. 2. Patient will utilize compensatory strategies for memory and problem solving to allow for safe completion of daily activities. 3. Patient will participate in further cognitive linguistic skills to guide POC. - Planning to discharge today. Unable to further assess cognitive linguistic skills * OT reported that they will be working on cognition to safely complete ADLs as well. Fdc Goals 1. Patient will demonstrate speech, language, and cognitive communication abilities sufficient to participate in medical decision making. Treatment Activities Reviewed initial evaluation results and treatment goals with patient and his . Improved speech intelligibility as compared to yesterday. Patient has a southern dialect and low facial muscle tone, which may be impacting his overall speech intelligibility. Provided patient with handouts listing compensatory speaking strategies and oral motor exercises to practice at home to improve muscle tone and speech intelligibility. Reviewed each recommended strategy and demonstrated each oral motor exercise to ensure correct effort and technique, when patient practices at home. Patient completed 3 spontaneous word stress drills with use over-articulation / exaggerated speech production to improve intelligibility. Patient and demonstrated understanding with recommended speaking strategies and oral motor exercises. BEER COIL CLEANER recommended that patient download the phone tom, [employer] to practice his cognitive linguistic skills at home. OT reported that they will target cognition to safely complete ADLs as well. Assessment Patient Response to Treatment Good Rehab Potential Good Impairments Identified Articulation,Cognitive- Linguistic Skills,Dysarthria, Speech Intelligibility Assessment of Overall Progress Improving Assessment of Improvement Improved speech intelligibility as compared to yesterday. Patient planned to discharge today. Recommend outpatient speech therapy services to address dysarthria and cognitive linguistic deficits. Reviewed with Patient Goals,Home Exercise Program Patient/Caregiver Understanding Good Plan Therapeutic Contents Articulation Training, Cognitive-Linguistic Training, Home Exercise Program, Intelligibility,Oral Motor Training Provided Patient/Caregiver Instruction Home Exercise Program, Questions/Concerns Other Referrals Outpatient speech therapy
--- NOTE | 2019-11-06 11:37 | CM.DPNOTE ---
DC Note: Met w/patient and spouse during multidisciplinary bedside rounds today. Dr King has discharged patient home and patient/spouse are adamant about returning home and Dr King agrees, patient is functionally and medically cleared. SURVEY COORDINATOR/PT/OT has cleared patient for return home. No needs from this MARBLE FINISHER today. Patient will have an outpt referral for PT/SURVEY COORDINATOR and patient/spouse agreeable to this. P: DC home w/spouse and outpt therapies, close outpt f/u w/ PCP ARPAN Trivedi
--- NOTE | 2019-11-06 12:08 | OT.IP.TRT ---
Current Diagnoses Cerebral infarction, unspecified (11/04/19) Occupational Therapy Treatment Note M2 OT-IP Current Condition Start: 11/05/19 16:08 Freq: Status: Active Protocol: Document 11/05/19 13:22 [facility] (Rec: 11/05/19 16:42 [facility] [id number]) Occupational Therapy Current Condition Current Condition Evaluation Date 11/05/19 Treatment Diagnosis Subacute infraction Left thalamus Diagnosis Onset Date 11/04/19 Weight Bearing Status Weight Bearing Status Weight Bear as Tolerated M3 OT- IP Subjective and Pain Start: 11/05/19 16:08 Freq: Status: Active Protocol: Document 11/06/19 11:59 [facility] (Rec: 11/06/19 12:08 [facility] [id number]) OT- Subjective Occupational Therapy Visit Type Type Treatment Note Visit Start Time 11:37 Visit Stop Time 11:52 Total Visit Minutes 15 Occupational Therapy Visit Comments Patient Comments Pt and present and pt dressed and anxious to go home and not wanting to do 9 hole PEG test. Pt states normally his left hand has decreased coordination, it is just an extension to my arm. Patient/Caregiver Goals TO go home. OT Pain Assessment Pain When Pain Assessed At Rest Pain Present Pain Present Denied Pain M4 OT- IP ADL's Start: 11/05/19 16:08 Freq: Status: Active Protocol: Document 11/06/19 11:59 [facility] (Rec: 11/06/19 12:08 [facility] [id number]) OT [id number] Comments OT Self-Feeding Comments Not at meal time. OT ADL-Grooming Comments OT Grooming Comments Not performed. OT ADL-Dressing Comments OT Dressing Comments Pt already dressed, per pt do so on his own. Pt also able to madiha/doff his watch on his own. OT ADL-Bathing Comments OT Bathing Comments Pt states will do at home. M5 OT- IP IADL's Start: 11/05/19 16:08 Freq: Status: Active Protocol: Document 11/05/19 13:22 [facility] (Rec: 11/05/19 16:42 [facility] [id number]) OT-Instrumental Activities of Daily Living Deficits IADL Deficits Identified Deficits Home Safety Awareness Ability to Problem Solve Emergency Able to Problem Solve Situations Home Safety Comments Pt aware that he balance is decreased and that his will have to assist for needs at this time. Medication Management Medication Management Comments Pt states prior pt able to do his medication, at this time due to cognitive deficit pt would benefit from his to assist now. Money Management Money Management Caregiver Provides Assistance Meal Preparation Meal Preparation Caregiver Provides Assist Senior System Operator Senior System Operator Caregiver Provides Assist Driving Driving Concerns Identified Regarding Safety Driving Comments Pt states that he has not driven in awhile. See below for comments. M6 OT- IP Functional Cognition Start: 11/05/19 16:08 Freq: Status: Active Protocol: Document 11/05/19 13:22 [facility] (Rec: 11/05/19 16:42 [facility] [id number]) Cognitive Factors Limiting Selfcare Function Cognitive Ability Level of Alertness Alert Patient Orientation Name,Age,Year,Day of Week, Place,Situation Attention Span Ability Capable of Focused Attention, Capable of Sustained Attention Ability to Follow Commands Able to Follow Multi-Step Commands Memory Description Short Term Impaired Safety Awareness Underestimates Need for Assistance Problem Solving Ability Needs Assist to Identify Solutions Executive Function Ability Unable to Organize Plans, Unable to Remember Details Cognitive Tests SLUMS Pt scored 18/30 , normal score for pt's level of education is 27/30. Pt having most difficulty with short term memory items. Only able to recall 1/5 objects after time passes, unable to state 3 or 4 digit numbers backwards, not able to draw the hands on the clock correctly after time given, and only able to answer 2 out of 4 questions after paragraph read. Pt score implies dementia, however pt's cognition may also be affected by recent CVA. Cognitive Comments Cognitive Assessment Comments Pt scored 248 seconds on [place] [employer] Part [employer] which implies severe deficits with mental flexibility, visual attention, task switching, speed of processing and exective functioning. Therefore recommend no driving for pt at this time. Per [employer] a score on [place] [employer] Part B higher than 180seconds implies more likely to get into a car accident. M7 OT- IP Mobility and Balance Start: 11/05/19 16:08 Freq: Status: Active Protocol: Document 11/06/19 11:59 [facility] (Rec: 11/06/19 12:08 [facility] [id number]) OT-Transfer Assessment Comments Mobility Comments Pt worried about his balance and wondering why he is strong with his legs but having poor balance. Went over and gave pt and information on preventing falls- that can be influences by his environment, medications, eyes, vestibular systems, etc.. and would be best to go to outpt PT to work on his dynamic balance. In addition stressed to pt as he has a strong personality to try to thinks about his posture/balance before trying to move and making sure he is thinkgin throughoy about safety awareness instead of rushing through movements. M8 OT- IP Objective Assessments Start: 11/05/19 16:08 Freq: Status: Active Protocol: Document 11/05/19 13:22 [facility] (Rec: 11/05/19 16:42 [facility] [id number]) OT Gross Range of Motion Upper Extremity Range of Motion Assessment Within Functional Limits OT Strength Upper Extremity Strength Assessment Within Functional Limits OT-Muscle Tone Assessment Muscle Tone WNL Yes M9 OT- IP Assessment and Plan Start: 11/05/19 16:08 Freq: Status: Active Protocol: Document 11/06/19 11:59 [facility] (Rec: 11/06/19 12:08 [id number] Summary Assessment and Plan Potential Rehabilitation Potential Good Analytic Complexity at Evaluation Low Summary Assessment Summary Pt doing better today and anxious to go home. Pt would benefit from home with assist and outpt PT for dynamic balance needs due to high risk on falls.
--- NOTE | 2019-11-06 12:10 | PT.IPTN ---
Current Diagnoses Cerebral infarction, unspecified (11/04/19) Physical Therapy Treatment Note M2 PT-IP Current Condition Start: 11/05/19 11:17 Freq: NEEDED Status: Active Protocol: Document 11/05/19 10:37 AB (Rec: 11/05/19 11:48 AB [id number]) Physical Therapy Current Condition Current Condition Evaluation Date 11/05/19 Treatment Diagnosis s/p fall; TIA; seizure; difficulty in walking Onset Date 11/04/19 Precautions Other Precautions falls M3 PT-IP Subjective Start: 11/05/19 11:17 Freq: NEEDED Status: Active Protocol: Document 11/06/19 11:47 KS (Rec: 11/06/19 14:48 KS [email or web address]) Subjective Physical Therapy Visit Type Type Treatment Note Visit Start Time 11:47 Visit Stop Time 12:10 Total Visit Minutes 23 Number of ELECTRO OPTICAL ENGINEER Visits 1 Physical Therapy Visit Comments Patient Comments pt agreeable to do PT. Pts present for caregiver training. Therapy Pain Assessment Pain Present Pain Present Denied Pain M4 PT-IP Mobility and Gait Start: 11/05/19 11:17 Freq: NEEDED Status: Active Protocol: Document 11/06/19 11:47 KS (Rec: 11/06/19 14:48 KS [email or web address]) PT-Bed Mobility Assessment Supine to Sit Supine to Sit Standby Assistance Sit to Supine Sit to Supine Standby Assistance Scooting Scooting to Edge of Bed Standby Assistance PT-Transfer Assessment Sit to and From Stand Sit to and from Stand Standby Assistance,Contact Guard Assistance,1 Person Assistance,Use of Upper Extremities Equipment Transfer Assistive Device Gait Belt,4 Wheeled Walker Orthotic/Prosthetic Devices or Brace: No Transfers Transfer Destination Bed,Chair Transfer Technique Pt ambulated w/ FWW. Transfer Ability Level of Assist Standby Assistance,Contact Guard Assistance,1 Person Assistance,Use of Upper Extremities Comments Mobility Comments Pt was in chair upon arrival from therapy w/ /caregiver in room. Pt SBA for scooting to edge of chair and SBA to CGA for sit<>stand w/ 4WW. Pt then ambulated to stairs w/ 4WW and CGA, completed 3 steps x2, and returned to room where he performed bed mobility. Pt SBA for stand<> sit in bed w/ cues for application of brakes on 4WW prior to sitting. SBA for sit< >supine, repositioning in bed, and sup<>sit, as well as transfer from bed to chair w/ 4WW. Pts able to provide correct cues and assist on stairs and w/ ambulation. PT and state they both feel safe to return home. Suggested outpatient rehab. Gait Assessment Gait Gait Assistance Required: Standby Assistance,Contact Guard Assist,1 Person Assist Distance (Feet) 75 Able to Maintain Weight Bearing Status Yes During Gait Assistive Devices Assistive Device Gait Belt,4 Wheeled Walker Orthotic/Prosthetic Devices or Brace: No Gait Deviations General Gait Pattern Antalgic,Decreased Stride Length,Decreased Feet Clearance,Flexed Trunk,Lateral Trunk Lean,Narrow Based Gait Factors Limiting Gait Function Factors Limiting Gait Function Decreased Activity Tolerance, Decreased Strength,Difficulty Following Directions,Limited Range of Motion,Poor Balance, Poor Safety Awareness Comments Gait Comments Pt ambulated ~75 ft w/ 4WW and SBA to CGA provided safely by pts /caregiver. Pt needs occasional cues for upright posture and 4WW management d/t slight impulsiveness and pushing 4WW too far foreward at times. Instructed pts how to provide assist w/ 4WW. Stair Climbing Assessment Evaluation Level of Assist On Stairs Contact Guard Assistance,1 Person Assistance Devices Stair Climbing Assistive Devices Right Railing Technique/Endurance Stair Climbing Direction Ascend and Descend Stair Climbing Technique Step to Step Number of Steps Climbed 3 Stair Climbing Set # Repetitions (reps) 2 Comments Stair Climbing Comments Pt ascended/descended 3 steps x2 w/ CGA provided by ELECTRO OPTICAL ENGINEER on first set and CGA provided by pts on second set. Pt used BUE on R rail ascending and LUE on rail descending w/ FLAP PRESSER on pts RUE. Pt used step to step pattern. Pt and state they both feel safe performing stairs at home. PT-Balance Assessment Sitting Balance and Reactions Static Sitting Balance Ability Good Dynamic Sitting Balance Ability Good Standing Balance and Reactions Static Standing Balance Ability Fair Dynamic Standing Balance Ability Fair Device Used FWW M5 PT-IP Objective Assessments Start: 11/05/19 11:17 Freq: NEEDED Status: Active Protocol: Document 11/05/19 10:37 AB (Rec: 11/05/19 11:48 AB [id number]) Orientation Orientation/Cognition Level of Alertness Alert Orientation Name,Place,Situation Safety Awareness Decreased Safety Awareness Gross Range of Motion Lower Extremity ROM Assessment Within Functional Limits Strength Lower Extremity Strength Assessment Right Impaired Hip 3+/5 Knee 3+/5 Sensation Assessment Sensation Gross Sensation WNL Muscle Tone Muscle Tone WNL Yes M6 PT-IP Treatment Start: 11/05/19 11:17 Freq: NEEDED Status: Active Protocol: Document 11/06/19 11:47 KS (Rec: 11/06/19 14:48 KS [email or web address]) Physical Therapy Treatment Education Education Provided Safety Other Treatments Other Treatment Performed caregiver training M7 PT-IP Assessment and Plan Start: 11/05/19 11:17 Freq: NEEDED Status: Active Protocol: Document 11/06/19 11:47 KS (Rec: 11/06/19 14:48 KS [email or web address]) PT Summary Assessment and Plan Potential Rehabilitation Potential Good Status of Condition at Evaluation Evolving Summary Impairments Pain,ROM,Strength,Balance, Coordination,Sensation,Tone, Cognition,Bed Mobility, Transfers,Gait,Activity Tolerance Assessment Summary Pt SBA for bed mobility and transfers w/ 4WW. Occasional cues for application of brakes prior to sitting or standing. Completed caregiver training w/ pts for ambulation and stairs which she was able to provide appropriate assist for . Pt requires min cues for 4WW management, quad activation, and upright posture. Pt completed 3 steps x2 w/ step to step pattern and CGA and FLAP PRESSER demonstrated by ELECTRO OPTICAL ENGINEER and then safely performed by pts . Pt continues to be slightly impulsive w/ 4WW and could benefit from SNF to improve strength and tolerance for activity, pt and pts state they feel safe to go home. Pt will benefit from outpatient rehab to improve functional mobility. Goals Bed Mobility Goal Independent Transfer Goal Independent,Front Wheeled Walker,Four Wheeled Walker Gait Goal Independent,Front Wheel Walker ,Four Wheel Walker Gait Distance 100 Other Goals up/down 2 steps R rail SBA Days to Meet Goals 5 Frequency of Treatment Frequency Of Treatment Once a Day Treatment Plan Physical Therapy Treatment Plan Bed Mobility Training,Transfer Training,Gait Training, Therapeutic Exercise,Balance Retraining,Discharge Planning, Hot or Cold Pack,Neuromuscular Re-ed,Coordination Retraining Recommendations To Nursing Amount of Assist Needed 1 Person Assist Discharge Recommendations PT Discharge Recommendations Home with 24/7 Assist,Home Health,SNF Rehab,Acute Rehab, Outpatient PT Other Discharge Recommendations depending on progress: acute rehab vs SNF rehab vs home with assist and HHPT or outpt PT Transportation Needs at Discharge Private Vehicle,Wheelchair/ Cabulance
--- NOTE | 2019-11-06 12:44 | PC.NURSE ---
Day shift note: Awake, alert, and pleasantly cooperative. at bedside providing supportive care. Discharge instructions given to patient, discussed importance of F/U with Dr. Shaw, new and changed medications, diet modifications, and review of stroke symptoms. Both patient and verbalized understanding of instructions. Home via private vehicle accompanied by .
== END 2019-11-06 12:30 | disposition home or self-care (01) | DRG 68 ==
LOC: ED 17:31 → AC 11-05 08:23
PROVIDERS: Internal Medicine; Admitting Provider Internal Medicine; Emergency Provider Emergency Medicine; PCP Internal Medicine; Referring Provider Emergency Medicine; Visit Provider Internal Medicine
DX: I66.22 Occlusion and stenosis of left posterior cerebral artery (principal); R47.81 Slurred speech; R47.1 Dysarthria and anarthria; N40.0 Benign prostatic hyperplasia without lower urinary tract symptoms; I10 Essential (primary) hypertension; G40.909 Epilepsy, unspecified, not intractable, without status epilepticus; Z98.84 Bariatric surgery status; R29.6 Repeated falls; Z91.81 History of falling; Z66 Do not resuscitate; R73.03 Prediabetes; D64.9 Anemia, unspecified; F10.20 Alcohol dependence, uncomplicated
CPT/HCPCS: 36415; 70450; 70548; 70553; 80053; 80061; 83036; 83690; 85025; 85610; 85730; 92507; 92523; 92610; 93005; 93306; 97116; 97162; 97165; 97530; 99284; J1650

== ENCOUNTER 2021-05-15 12:39 | Inpatient (IN) | payer MEDICARE, OTHER, SELFPAY ==
[2021-05-15] VITALS (14 sets, daily range): BP systolic 147–192; BP diastolic 79–92; PULSE 51–70; RESP 16–22; TEMP 36.4–37; O2SAT 93–100; BMI 20.3
[2021-05-15 13:55] LABS: Add Manual Diff / Slide Review NO; Basophils Absolute Auto 0 /uL (0-100); Basophils Percent Auto 0.4 % (0-2); Eosinophils Absolute Auto 200 /uL (0-450); Hematocrit 34.1 % (41-53); Hemoglobin 10.7 g/dL (13.5-17.5); Lymphocytes Absolute Auto 1700 /uL (1100-4500); Lymphocytes Percent Auto 29.6 % (25-40); Mean Corpuscular HGB Conc 31.3 % (30-36); Mean Corpuscular Hemoglobin 23.4 PG (26-34); Mean Corpuscular Volume 74.6 fL (80-100); Monocytes Absolute Auto 500 /uL (0-900); Neutrophils Absolute Auto 3300 /uL (1500-7000); Platelet Count 273 X10^3/uL (150-400); Red Blood Cell Count 4.57 X10^6/uL (4.5-5.9); Red Cell Distribution Width 19.7 % (11.6-14.8); White Blood Cell Count 5.7 X10^3/uL (4.5-11.0)
[2021-05-15 14:01] LABS: INR 1.2 (0.9-1.3); Prothrombin Time 13.4 SECONDS (10.1-12.7)
[2021-05-15 14:04] LABS: PTT Partial Thromboplastin Tim 34 SECONDS (26.4-36.2)
[2021-05-15 14:06] LABS: Alanine Aminotransferase 30 IU/L (<50); Albumin 3.5 g/dL (3.5-5.0); Albumin Globulin Ratio 1.4 (1.0-2.8); Alkaline Phosphatase 74 U/L (38-126); Aspartate Aminotransferase 42 IU/L (17-59); BUN Creatinine Ratio 27.4 (6-22); Bilirubin Total 0.6 mg/dL (0.2-1.3); Blood Urea Nitrogen 17 mg/dL (9-20); Calcium 8.8 mg/dL (8.4-10.2); Carbon Dioxide 31 mmol/L (22-32); Chloride 102 mmol/L (98-107); Estimated Glomerular Filt Rate > 60.0 mL/min (>60); Globulin 2.5 g/dL (1.7-4.1); Glucose 99 mg/dL (80-110); HEMOLYSIS < 15 (0-50); Lipase 68 U/L (23-300); Potassium 3.9 mmol/L (3.4-5.1); Sodium 135 mmol/L (137-145)
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
[2021-05-15] MEDS: diphenhydrAMINE 50 MG/ML VIAL 25 MG IV (14:27)
[2021-05-15] MEDS: methylPREDNISolone 125 MG/2 ML VIAL IV (14:27)
[2021-05-15 14:40] LABS: COVID19 - ADMIT (NP swab/PCR) Negative (Negative)
--- NOTE | 2021-05-15 14:44 | DI.CT.S_ITS ---
PROCEDURE: CT ABDOMEN PELVIS W CON INDICATIONS: pain prior sigmoid volvulus TECHNIQUE: After the administration of oral and IV contrast, axial sections were acquired from the lung bases to the pubic symphysis. Coronal and sagittal reformats were performed. For radiation dose reduction, the following was used: automated exposure control, adjustment of mA and/or kV according to patient size. Patient received premedication for prior contrast allergy. COMPARISON: Outside Facility, , CT ABDOMEN/PELVIS WITH CONTRAST, 05/10/2021, 15:48. FINDINGS: Image quality: Excellent. Lung bases: Unremarkable. Heart: Left atrium partially visualized appears prominent. ABDOMEN: Liver: Unremarkable. Gallbladder: Mildly distended. No gallstones seen. Biliary ducts: Unremarkable. Pancreas: Unremarkable. Spleen: Unremarkable. Adrenal Glands: Thickening of the left adrenal gland.. Kidneys and Ureters: Unremarkable. Stomach and Bowel: Small hiatal hernia. Prior Robert-en-Y gastric bypass. Dilated loop of small bowel in the lower abdomen. This was not seen on the CT 05/10/2021. The colon is distended with fecal residue and gas, decreased. The sigmoid colon is redundant. With colon is interposed anterior to the liver. Peritoneum: There is trace fluid in the right pericolic gutter, not significantly changed. No pneumoperitoneum. No pneumatosis intestinalis. Ventral Wall: No hernia. Rectus muscle atrophy. Abdominal Nodes: No retroperitoneal or mesenteric adenopathy by size criteria. Vessels: Aorta and inferior vena cava are normal in size. PELVIS: Pelvic Organs: Prostatomegaly. Suspect prior TURP. Bladder: Distended. No stones. Pelvic Nodes: No enlarged lymph nodes. Miscellaneous: No inguinal hernias are seen. Lumbar edema. Bones: Right femur intramedullary leyla with screw fixation. Sclerosis at the left femoral head could be due to a vascular necrosis. IMPRESSION: 1. Dilated loop of small bowel in the lower abdomen. This is concerning for mild or early small bowel obstruction. 2. The colon is distended with fecal residue and gas. Overall this is decreased compared to the recent prior CT. 3. Prior Robert-en-Y gastric bypass. 4. Distended urinary bladder. Comment: Findings were discussed with Amy Santiago at the time of dictation. Dictated by: Gilberto Delatorre M.D. on 05/15/2021 at 14:46 Approved by: Gilberto Delatorre M.D. on 05/15/2021 at 15:03
[2021-05-15 16:05] LABS: Appearance Urine UA CLEAR; Bilirubin Urine UA NEGATIVE (NEGATIVE); Color Urine UA YELLOW; Glucose Urine UA NEGATIVE (Negative); Ketones Urine UA NEGATIVE (NEGATIVE); Leukocyte Esterase Urine UA NEGATIVE (NEGATIVE); Nitrite Urine UA NEGATIVE (Negative); Occult Blood Urine UA TRACE-INTACT (Negative); Protein Urine UA NEGATIVE (Negative); Urobilinogen Urine UA 0.2 E.U./dL (0.2); pH Urine UA 6.5 (4.5-8.0)
[2021-05-15 16:12] LABS: Bacteria Urine None Seen; Culture Indicated Urine Cult Not Indicated; RBC Urine 0-1/HPF (0-5/HPF); Squamous Epithelial Cell Urine 0-1 /HPF (0-5/HPF); WBC Urine 0-1/HPF (0-5/HPF)
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
[2021-05-15] MEDS: SODIUM CHLORIDE 0.9% 1,000 ML 84 ML IV (18:43)
[2021-05-15] MEDS: PEG3350/SOD SULF,BICARB,CL/KCL 4,000 ML SOLUTION 2000 ML PO (18:43)
[2021-05-15] MEDS: levETIRAcetam 1,000 MG in SODIUM CHLORIDE 0.9% 100 ML 440 ML IV (18:44)
[2021-05-16] VITALS (28 sets, daily range): BP systolic 126–200; BP diastolic 68–115; PULSE 51–90; RESP 12–19; TEMP 36.1–36.9; O2SAT 92–100; BMI 20.3
--- NOTE | 2021-05-16 | PATH_ITS ---
[facility] Accession Number: [id number] . 01 Material submitted: . sigmoid colon - SIGMOID COLON AND APPENDIX . 02 Diagnosis: Sigmoid Colon and Appendix, Segmental Resection, Appendectomy: Markedly dilated and extensively thinned colon wall. Rare diverticuli. Focal mesenteric fat necrosis with calcification. Appendix with fibrous obliteration. Negative for acute ischemia, inflammation, dysplasia, and malignancy. [facility] 05/22/2021 1639 Local . 02 Comment: The gross and morphologic findings of a markedly dilated and thinned colon wall could be compatible with the recent clinical history of bowel obstruction and endoscopically corrected sigmoid volvulus, in the appropriate radiologic and surgical setting. There is a small nodule of fat necrosis with calcification which is probably a result of a more remote injury. . 02 Electronically signed: . Lea Tavarez MD, Pathologist NPI- [id number] . 01 Gross description: . Received in formalin, labeled sigmoid colon and appendix and consists of a 55 cm in length portion of colon, with two stapled margins, ranging in diameter from 3.0-7.5 cm. The serosa is marie-pink and smooth with focal fibrinous adhesions and a moderate amount of attached adipose tissue. Opening reveals a marie-pink mucosa with normal to attenuated mucosal folds. The wall thickness ranges from 0.2-0.4 cm and is focally edematous. Sectioning through the attached adipose tissue reveals multiple marie firm potential lymph nodes ranging from 0.3-2.0 cm. Also received is a 6.2 cm in length by 0.5 cm in diameter vermiform appendix with attached marie-yellow lobulated mesoappendix measuring 7.5 x 1.5 x 0.6 cm. The serosa is marie-pink and smooth. Sectioning reveals a marie mucosa and a lumen measuring 0.2 cm in diameter. [employer] Kil[employer] Placer sections are submitted. . A1: [place] [employer] Placer perpendicular sections of stapled margins (blue and black). A2-A3: [place] [employer] Placer distended areas of colon. A4: [place] [employer] Placer sections between distended areas of colon. A5: Intact lymph nodes. A6: One bisected potential lymph node. A7: One bisected potential cystic lymph node. A8: Appendix, margin (blue, en face), bisected tip and central cross sections. ([id number]) /MRV 05/22/2021 1639 Local . 02 Pathologist provided ICD-10: K56.2 . 02 CPT . 526399 Performed at: 01 [facility] [address] [facility], [place], [place] [id number] MD Guzman Mario MD Phone: [phone] Performed at: 02 [facility] [address] [place], [place] [id number] MD Lea Tavarez MD Phone: [phone]
--- NOTE | 2021-05-16 01:14 | PC.NURSE ---
SHIFT: Report received, care assumed 1914. Pt. A&Ox4; oriented to call light, room, and fall risk. Bed alarm set. VSS. Denies pain. Positive bowel tones throughout. Drank GoLytely to prescribed level; no bowel movement as of yet. NPO past midnight for anticipated surgical procedure in morning.
[2021-05-16] MEDS: levETIRAcetam 1,000 MG in SODIUM CHLORIDE 0.9% 100 ML 440 ML IV ×2 (04:30→17:17)
[2021-05-16 04:55] LABS: Add Manual Diff / Slide Review NO; Basophils Absolute Auto 0 /uL (0-100); Basophils Percent Auto 0.2 % (0-2); Eosinophils Absolute Auto 0 /uL (0-450); Hematocrit 35.4 % (41-53); Hemoglobin 11.2 g/dL (13.5-17.5); Lymphocytes Absolute Auto 1200 /uL (1100-4500); Lymphocytes Percent Auto 23.6 % (25-40); Mean Corpuscular HGB Conc 31.7 % (30-36); Mean Corpuscular Hemoglobin 23.4 PG (26-34); Monocytes Absolute Auto 300 /uL (0-900); Neutrophils Absolute Auto 3600 /uL (1500-7000); Neutrophils Percent Auto 70.2 % (50-75); Platelet Count 301 X10^3/uL (150-400); Red Blood Cell Count 4.79 X10^6/uL (4.5-5.9); Red Cell Distribution Width 20.4 % (11.6-14.8); White Blood Cell Count 5.2 X10^3/uL (4.5-11.0)
[2021-05-16 05:00] LABS: BUN Creatinine Ratio 26.2 (6-22); Blood Urea Nitrogen 17 mg/dL (9-20); Calcium 8.7 mg/dL (8.4-10.2); Carbon Dioxide 31 mmol/L (22-32); Chloride 101 mmol/L (98-107); Estimated Glomerular Filt Rate > 60.0 mL/min (>60); Glucose 173 mg/dL (80-110); HEMOLYSIS < 15 (0-50); Magnesium 2.1 mg/dL (1.6-2.3); Phosphorous 3.5 mg/dL (2.3-3.7); Potassium 4.7 mmol/L (3.4-5.1); Sodium 134 mmol/L (137-145)
[2021-05-16 05:22] LABS: Anisocytosis 2+; Hypochromasia 2+; Poikilocytosis 1+; Target Cells 1+
[2021-05-16] MEDS: SODIUM CHLORIDE 0.9% 1,000 ML 84 ML IV ×2 (06:18→23:29)
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
--- NOTE | 2021-05-16 10:59 | CM.DANOTE ---
DCP: Case received, EMR reviewed and met with patient. Introduced self and role. Was able to obtain information regarding patient's baseline activity level prior to hospitalization. DCP assessment completed with information currently available. Patient is an 80 year old male who admitted yesterday afternoon to the care of the hospitalist team. PCP: Dr. Palumbo. Payer: confirmed: Medicare/ for Life. Patient came to the hospital via private as was recommended by a surgeon that he had seen when he and his were recently in [place]. Patient had recent volvulus on 05/10, and had a colonoscopy while on vacation. Surteon recommended follow up right away, and for eval of ostomy. Patient holds current diagnosis of early bowel obstruction. He also was noted to have urinary retention, and pineda was placed, with 1 liter of output. Met with patient in his room. He is alert and oriented, pleasant. Patient resides in [place] with his spouse, Ema. At his baseline he uses a FWW. He does not drive any longer, his takes him to any needed appointments. P: DCP to continue to follow for any needs. Patient is scheduled for surgery at approximately 1445. He does not have current P.T. orders. Will see how patient does after surgery. Kyung Arredondo RN/Forensic Economist Discharge Planning/Care Management Advanced directive, confirm from FAMILY Start: 05/15/21 16:39 Freq: Q24H Status: Active Protocol: Document 05/15/21 16:59 TJB (Rec: 05/15/21 17:00 TJB [id number]) Advance Directive, confirm on record Time 17:00 Person contacted rosanna ( ) Copy received No CM Discharge Assessment Start: 05/16/21 10:44 Freq: Status: Active Protocol: Document 05/16/21 10:55 VM (Rec: 05/16/21 10:59 [id number]) Discharge Planning Assessment Assigned Weir Fisherman Kyung Arredondo RN/Forensic Economist Advance Directives? Yes Advance Directives on File No History Provided By Patient,Significant Other, Medical Record Prior Living Arrangements House Household Members spouse Type of transporation used prior to Relies on Others admit Independent with ADL's Yes Is patient alert and oriented? Yes Caregiver for Another No DME Already Rented / Owned FWW / Walker Discharge Plan Home Transportation Arrangement Spouse Whiteboard Updated in Patient Room with Yes name and ext. # of Weir Fisherman Review Status In Process Next Review Type Continued Stay Review
--- NOTE | 2021-05-16 11:44 | PC.NURSE ---
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 STACK AND ORDER RECEIVED TO COMPLETE LAST 2 L- HE HAS BEEN ABLE TO TAKE MOST OF THE REMAINING 2L WITH AGAIN, ONE LARGE BM WHICH WAS BROWN AND MOSTLY LIQUID. AMBULATED AROUND NURSING STATION AND ORAL CARE GIVEN WELL AGUILA EMPTIED PRIOR TO GOING TO PRE-OP/ AT BEDSIDE AND HOPEFUL TO TALK WITH SURGEON PRIOR TO OR
[2021-05-16] MEDS: LACTATED RINGERS 1,000 ML 42 ML IV (12:48)
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
[2021-05-16] MEDS: CEFAZOLIN 1 GM VIAL 2 GM IV (13:58)
--- NOTE | 2021-05-16 15:01 | P.OP_ITS ---
Operative Date/Time/Diagnoses Date of procedure: 05/16/21 Time of procedure: 15:01 Pre-op diagnosis: Sigmoid volvulus Post-op diagnosis: same Procedure & Clinicians Procedure: Sigmoid colectomy, appendectomy, cecal pexy Same procedure as scheduled: Yes Indications: Sigmoid volvulus Surgeon: Francheska Gonzalez Click Yes if Unassisted: Yes Anesthesia Type: General Operative Notes Findings: Very redundant sigmoid colon also enlarged and redundant cecal colon. Normal appendix Closure Type: primary Specimen(s): other (Sigmoid colon, appendix) Applied: catheter Estimated Blood Loss (mL): 20 Blood products transfused: none Procedure in detail: Prep diagnosis: Sigmoid volvulus Postop diagnosis: Same Operative procedure: Sigmoid colectomy, appendectomy, cecal pexy Surgeon: Richa Gonzalez MD Anesthetic: General with ET tube intubation Findings: Redundant sigmoid colon, enlarged and redundant cecal colon, normal- appearing appendix Procedure: Patient placed in a lithotomy position. Prepped and draped sterile fashion exposing the abdomen. Midline incision was created in the lower abdomen. I was able to mobilize easily the sigmoid colon into the wound and transect proximal and distal with linear DEREK stapling devices. Estimated 3 ft of colon was sent for specimen. The remainder of the colon was palpated showing no abnormality. I then did [id number] anastomosis using a DEREK stapling devices and a TA stapling device with an over-sew the staple lines with interrupted 3-0 silk suture. Appendix was identified and the mesentery was taken down electrocautery. The base of the appendix was amputated after placing surgical clips used. Electrocautery was used for the mucosal surface. I then used a 2 0 Vicryl to pexy the cecum to the lateral abdominal wall and to avoid cecal volvulus. The abdomen was irrigated to a clear return. Fascia was closed with a running looped 0 PDS. Skin was closed with surgical eugenia. Patient was awakened, extubated, taken to recovery room in stable condition. Needle, instrument, sponge counts were correct. Specimen: Sigmoid colon, appendix Blood loss: 20 mL Complications: none Post-operative Condition: stable Disposition: PACU
--- NOTE | 2021-05-16 15:46 | SUR.OPER ---
Lithotomy on padded OR bed, head on pillow, arms secured on padded arm boards at <90 degrees abduction. Legs secured in padded yellow fins stirrups. patients glasses brought with patient to or and then to PACU. Glasses placed inpatient labelled black glass case.
[2021-05-16] MEDS: HYDROMORPHONE 2 MG INJ IV (16:02)
[2021-05-16] MEDS: HYDRALAZINE 20 MG/ML VIAL 10 MG IV (16:19)
[2021-05-16] MEDS: MORPHINE 2 MG/ML INJ IV ×2 (17:05→21:05)
[2021-05-16] MEDS: FAMOTIDINE 20 MG TABLET PO (20:05)
[2021-05-16] MEDS: SODIUM CHLORIDE 0.9% FLUSH 10 ML IV (21:09)
[2021-05-17] VITALS (14 sets, daily range): BP systolic 120–153; BP diastolic 63–82; PULSE 68–94; RESP 15–18; TEMP 36.6–37.2; O2SAT 93–99
[2021-05-17] MEDS: MORPHINE 2 MG/ML INJ IV ×2 (03:40→07:32)
[2021-05-17] MEDS: levETIRAcetam 1,000 MG in SODIUM CHLORIDE 0.9% 100 ML 440 ML IV (04:34)
[2021-05-17 05:59] LABS: Hematocrit 31.8 % (41-53); Hemoglobin 10.3 g/dL (13.5-17.5); Mean Corpuscular HGB Conc 32.3 % (30-36); Mean Corpuscular Hemoglobin 23.8 PG (26-34); Mean Corpuscular Volume 73.7 fL (80-100); Platelet Count 252 X10^3/uL (150-400); Red Blood Cell Count 4.32 X10^6/uL (4.5-5.9); White Blood Cell Count 10.7 X10^3/uL (4.5-11.0)
[2021-05-17 06:18] LABS: BUN Creatinine Ratio 22.1 (6-22); Blood Urea Nitrogen 15 mg/dL (9-20); Calcium 8.2 mg/dL (8.4-10.2); Carbon Dioxide 31 mmol/L (22-32); Chloride 104 mmol/L (98-107); Estimated Glomerular Filt Rate > 60.0 mL/min (>60); Glucose 126 mg/dL (80-110); HEMOLYSIS < 15 (0-50); Potassium 4.7 mmol/L (3.4-5.1); Sodium 136 mmol/L (137-145)
[2021-05-17] MEDS: SODIUM CHLORIDE 0.9% FLUSH 10 ML IV ×3 (07:32→23:12)
[2021-05-17] MEDS: FAMOTIDINE 20 MG TABLET PO ×2 (08:25→20:22)
[2021-05-17] MEDS: OXYCODONE IR 5 MG TABLET PO ×3 (08:51→22:33)
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
[2021-05-17] MEDS: TAMSULOSIN 0.4 MG CAPSULE PO (09:42)
[2021-05-17] MEDS: SODIUM CHLORIDE 0.9% 1,000 ML 84 ML IV (10:49)
[2021-05-17] MEDS: MORPHINE 2 MG/ML INJ 4 MG IV ×2 (11:10→14:26)
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
--- NOTE | 2021-05-17 13:46 | PC.NURSE ---
Day shift: Pt has moved to room 208. His spouse in room now for support. Pt's ABD pain does increase w/ any movement. He is able to get himself from chair to bed with assistance. He ambulates very slow. Medicated for pain per MAR. Pt is asleep now. He was also oriented to new room. Bed alarm is on. Call light in reach. Pt is high fall risk.
--- NOTE | 2021-05-17 15:39 | CM.DPC ---
DCP Cont: Per MD, pt had surgical intervention last night and Surgeon removed about 3 feet of colon. Pt making medical progress and potentially could be stable for d/c tomorrow pending how pt improves. Per PT, recommending home with spouse assist and HH. Spouse and pt agreeable and no HH preference and CC Krystin kindly made [facility] referral based on the [facility]endor Calendar. Due to triage needs, F2F not completed yet. Plan: SW to follow for plan of d/c home with spouse assist and new [facility] referral and F2F, MD orders, and d/c summary will need to be faxed to [facility] at discharge. ARPAN Gomes
--- NOTE | 2021-05-17 15:45 | PT-IP ANOTE ---
Pt refused working with therapy this afternoon, stated I am in alot of abdomen pain, can not even think of doing anything, not sure what am going to do, I am ready for a DNR it's so bad. THIRD RAIL INSTALLER notified nursing, is aware and in communication with physician for further pain med. support was told. THIRD RAIL INSTALLER discussed with pt in meantime work on slow easy breath, including use of inspirometer assist for transverse abdominal facilitation support, verbalized understanding and has tried. Pt stated I hope I will be better tomorrow. THIRD RAIL INSTALLER was unable to see pt, will return tomorrow for further assessment.
[2021-05-17] MEDS: HYDROMORPHONE 1 MG INJ IV ×3 (16:15→23:12)
[2021-05-17] MEDS: lamoTRIgine 100 MG TABLET PO (16:15)
[2021-05-17] MEDS: ONDANSETRON 4 MG/2 ML INJ IV (23:50)
[2021-05-18] VITALS (14 sets, daily range): BP systolic 126–156; BP diastolic 68–77; PULSE 81–103; RESP 14–16; TEMP 36.4–37.4; O2SAT 90–96
[2021-05-18] MEDS: HYDROMORPHONE 1 MG INJ IV ×2 (03:07→06:07)
[2021-05-18] MEDS: SODIUM CHLORIDE 0.9% FLUSH 10 ML IV ×4 (06:08→22:04)
[2021-05-18 06:32] LABS: Hematocrit 31.1 % (41-53); Hemoglobin 9.9 g/dL (13.5-17.5); Mean Corpuscular HGB Conc 31.9 % (30-36); Mean Corpuscular Hemoglobin 23.7 PG (26-34); Mean Corpuscular Volume 74.1 fL (80-100); Platelet Count 229 X10^3/uL (150-400); Red Cell Distribution Width 20.8 % (11.6-14.8); White Blood Cell Count 8.3 X10^3/uL (4.5-11.0)
[2021-05-18 06:37] LABS: BUN Creatinine Ratio 25.9 (6-22); Blood Urea Nitrogen 15 mg/dL (9-20); Calcium 8.3 mg/dL (8.4-10.2); Carbon Dioxide 30 mmol/L (22-32); Chloride 101 mmol/L (98-107); Estimated Glomerular Filt Rate > 60.0 mL/min (>60); Glucose 106 mg/dL (80-110); HEMOLYSIS < 15 (0-50); Potassium 4.2 mmol/L (3.4-5.1); Sodium 131 mmol/L (137-145)
--- NOTE | 2021-05-18 08:09 | CM.DPNOTE ---
Per Evelyne faxed home health referral and received confirm. to [facility]. Krystin Altamirano CM Asst.
[2021-05-18] MEDS: lamoTRIgine 100 MG TABLET 50 MG PO (08:18)
[2021-05-18] MEDS: TAMSULOSIN 0.4 MG CAPSULE PO (08:19)
[2021-05-18] MEDS: OXYCODONE IR 5 MG TABLET PO (08:19)
--- NOTE | 2021-05-18 11:36 | PT.IPTN ---
Current Diagnoses Unspecified intestinal obstruction, unspecified as to partial versus complete obstruction (05/15/21) Surgery Performed Operation Date: 05/16/21 13:00 Actual Procedures p Sigmoid Colectomy, Cecopexy and Appendectomy - Francheska Gonzalez MD Physical Therapy Treatment Note M2 PT-IP Current Condition Start: 05/17/21 12:31 Freq: NEEDED Status: Active Protocol: Document 05/17/21 11:40 DLM (Rec: 05/17/21 12:47 DLM [id number]) Physical Therapy Current Condition Current Condition Evaluation Date 05/17/21 Treatment Diagnosis colectomy, impaired mobility/ gait Onset Date 05/16/21 M3 PT-IP Subjective Start: 05/17/21 12:31 Freq: NEEDED Status: Active Protocol: Document 05/18/21 11:20 KS (Rec: 05/18/21 13:24 KS [id number]) Subjective Physical Therapy Visit Type Type Treatment Note Visit Start Time 11:20 Visit Stop Time 11:36 Total Visit Minutes 16 Number of CUSTOMER SUPPORT REPRESENTATIVE Visits 1 Physical Therapy Visit Comments Patient Comments Pt agreeable to to working w/ therapy. Therapy Pain Assessment Pain When Pain Assessed During Mobility Pain Present Pain Present Pain Reported M4 PT-IP Mobility and Gait Start: 05/17/21 12:31 Freq: NEEDED Status: Active Protocol: Document 05/18/21 11:20 KS (Rec: 05/18/21 13:24 KS [id number]) PT-Transfer Assessment Sit to and From Stand Sit to and from Stand Maximum Assistance,2 Person Assistance,Use of Upper Extremities Equipment Transfer Assistive Device Gait Belt,Front Wheeled Walker Transfers Transfer Destination Chair Transfer Ability Level of Assist Maximum Assistance,Use of Upper Extremities Comments Mobility Comments Pt in chair upon arrival from therapy and agreeable to standing. Pt unable to stand w / Max A from this CUSTOMER SUPPORT REPRESENTATIVE and SUPERVISOR URANIUM PROCESSING arrived for additional assist. Pt sit<>stand w/ FWW and Max A x2. He attempted to march in place, but reported too high of increase in pain from standing and requested to sit back down. Mod A x2 for slow descent into chair. Pt then performed 2x10 ankle pumps, LAQ, and glute sets and reported increased fatigue. Pt left in chair w/ all needs in reach. Gait Assessment Comments Gait Comments Unable due to pain PT-Balance Assessment Sitting Balance and Reactions Static Sitting Balance Ability Good Dynamic Sitting Balance Ability Good Standing Balance and Reactions Static Standing Balance Ability Fair Dynamic Standing Balance Ability Poor Device Used FWW M5 PT-IP Objective Assessments Start: 05/17/21 12:31 Freq: NEEDED Status: Active Protocol: Document 05/17/21 11:40 DLM (Rec: 05/17/21 12:47 DLM [id number]) Orientation Orientation/Cognition Level of Alertness Alert Orientation Name,Age,Birthday,Month,Date, Year,Day of Week,Place, Situation Language Function Ability Hard of Hearing Safety Awareness Understands Safety Issues Comments glasses and hearing aides, he reports mild speech changes since his stroke but pt able to effectively communicate Gross Range of Motion Upper Extremity ROM Assessment Within Functional Limits Lower Extremity ROM Assessment Within Functional Limits Impairments abdominal pain with LE movements Strength Upper Extremity Strength Assessment Within Functional Limits Lower Extremity Strength Assessment Bilaterally Impaired Comments Strength Comments LE strength limited by abdominal pain at this time Coordination Assessment Gross Coordination Gross Coordination WNL Sensation Assessment Sensation Gross Sensation WNL Comments Sensation Comments no sensory changes reported Muscle Tone Muscle Tone WNL Yes Other Assessments Other Other Assessments pt reports a hx of falls, he is not sure why he falls but may be due to balance M6 PT-IP Treatment Start: 05/17/21 12:31 Freq: NEEDED Status: Active Protocol: Document 05/18/21 11:20 KS (Rec: 05/18/21 13:24 KS [id number]) Physical Therapy Treatment Exercises Exercises Ankle Pumps,Gluteal Sets, Seated Knee Flexion/Extension Education Education Provided Safety M7 PT-IP Assessment and Plan Start: 05/17/21 12:31 Freq: NEEDED Status: Active Protocol: Document 05/18/21 11:20 KS (Rec: 05/18/21 13:24 KS [id number]) PT Summary Assessment and Plan Potential Rehabilitation Potential Good Status of Condition at Evaluation Evolving Summary Impairments Pain,Strength,Balance,Bed Mobility,Transfers,Gait, Activity Tolerance Assessment Summary Pt limited in mobility by pain and weakness. Required Max A x2 for sit<>stand from low chair, would likely perform better from bed or higher chair. Pt unable to perform marching in place or ambulation due to abdominal pain, but was able to complete LE exercises to promote strenghthening and blood flow. Will continue to assess progress, however pt may require SNF if he does not improve strength and mobility during hospital stay. Goals Bed Mobility Goal Independent Transfer Goal Standby Assistance,Front Wheeled Walker Gait Goal Standby Assistance,Front Wheel Walker Gait Distance 60 feet Other Goals up and down 2 steps with rail and CG assist Days to Meet Goals 7 Frequency of Treatment Frequency Of Treatment Twice a Day Treatment Plan Physical Therapy Treatment Plan Bed Mobility Training,Transfer Training,Gait Training, Therapeutic Exercise,Balance Retraining,Post Op Education, Discharge Planning Precautions Abdominal Surgery Precautions Log Roll,Lifting Restrictions, Gait Belt above Incisional Area Other Precautions hx of falls Recommendations To Nursing Amount of Assist Needed 1 Person Assist Discharge Recommendations PT Discharge Recommendations Home with Assistance,Home Health,SNF Rehab Other Discharge Recommendations pt and his want home Transportation Needs at Discharge Private Vehicle
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
[2021-05-18] MEDS: SIMETHICONE 80 MG TABLET PO ×2 (11:55→14:30)
[2021-05-18] MEDS: OXYCODONE IR 5 MG TABLET 10 MG PO ×2 (11:56→14:30)
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
--- NOTE | 2021-05-18 14:19 | CM.DPC ---
DCP Cont: Had hospitalist sign face to face for home health. Referral was already sent to [facility], minus face to face and orders. According to notes, spouse had no preference upon agencies. [facility] was ordered based upon vendor on calendar for this week. Patient was moaning in pain today. Will add nursing, P.T, and O.T, on face to face. P: DCP to continue to follow. Plan at this time is home with [facility]. Kyung Arredondo RN/Monitoring Coordinator
--- NOTE | 2021-05-18 14:50 | PT-IP ANOTE ---
Attempted to see pt at 14:50, pt adamantly refused due to increased abdominal pain and fatigue following recent transfer back to bed. Encouraged pt to transfer to chair for dinner.
--- NOTE | 2021-05-18 15:18 | DI.RAD.S_ITS ---
PROCEDURE: XR ABDOMEN 1V INDICATIONS: abdominal pain, ileus TECHNIQUE: One view of the abdomen acquired. COMPARISON: [facility], CT, CT ABDOMEN PELVIS W CON, 05/15/2021, 14:39. FINDINGS: Surgical changes and devices: Vertical staple line projects over the lower pelvis, new since the 05/15/2021 examination. Bowel: Distended small and large bowel loops are present. Soft tissues: No suspicious abdominal calcifications. Visualized solid organ contours appear normal in size. Bones: No suspicious bony lesions. IMPRESSION: Small and large bowel dilatation, consistent with ileus. Dictated by: Shamika Ornelas M.D. on 05/18/2021 at 15:36 Approved by: Shamika Ornelas M.D. on 05/18/2021 at 15:37
[2021-05-18] MEDS: lamoTRIgine 100 MG TABLET PO (17:32)
[2021-05-18] MEDS: MORPHINE 4 MG/ML INJ IV ×2 (17:32→20:29)
[2021-05-18] MEDS: BISACODYL 10 MG SUPP PR (19:28)
[2021-05-18] MEDS: ACETAMINOPHEN SUSP 650 MG/20.3 ML UDC PO (19:28)
--- NOTE | 2021-05-18 19:37 | PC.NURSE ---
Spouse removed wedding ring with lotion and took it home with her d/t finger swelling.
[2021-05-18] MEDS: GABAPENTIN 300 MG CAPSULE PO (20:28)
[2021-05-18] MEDS: FAMOTIDINE 20 MG TABLET PO (20:29)
[2021-05-18] MEDS: METOCLOPRAMIDE 10 MG/2 ML INJ IV (22:04)
[2021-05-18] MEDS: LORazepam 2 MG/ML INJ 1 MG IV (22:04)
--- NOTE | 2021-05-18 22:26 | PC.NURSE ---
Addendum entered by Romana Coto R.N. 05/19/21 06:57: Pt's O2 improved and was holding at 96-98% on 1L NC, O2 NC removed at 0620 and patient has held 96%. Will continue to monitor and notify oncoming RN. Pt's pain still controlled since Simethicone at 0146, abdomen is less firm but still distended. Pt states he feels more comfortable at this time. Resting in bed with call light within reach. Addendum entered by Romana Coto R.N. 05/19/21 03:24: Patient has been resting with moments of wakening with moaning out. This RN scanned and was ready to administer 3mg Morphine and Simethicone PO, however patient was still very sleepy from prior medications and did not state that pain was unbearable. Pain rated 6/10 but patient was drifting in and out of sleep while this RN was in the room. PO Simethicone was given to help ease the pain in the abdomen that seems to be gas related. Pt has been resting comfortably in bed with call light within reach since. Bowel tones are active and abdomen is less firm than prior assessment. Original Note: Pt has complained of pain since start of shift and in report this RN was told that pain is not well controlled. Pt was given one time dose of Duloax MO at 1928 and at assessment at 2019, pt's bowel sounds were active, belly was distended but soft and tender. Dressing was still showing drainage but had not moved much out of the lines drawn by this RN last shift. Pt continued to call out in pain and this RN called Dr. Gonzalez to ask for 10 mg Reglan IV q6hr. Order was given for that and 1mg Ativan IV q6hrs PRN. Pt was given next dose of PRN morphine but only 3mg was given d/t pts O2 saturations ranging from 90-91%. 2L NC was placed on the patient and the patient was educated on getting up, moving, and using the incentive spirometry to help clear out his lungs and get the bowels moving. Pt refused to get up and kept requesting more Morphine. Pts O2 is now between 92-96% on 2L and patient goes in and out of sleep, waking and moaning out. Patient called in RN into the room at 2150 and stated that there was new pain in his abdomen and he needed something for the pain. This RN and the PATHOLOGY LAB TECHNICIAN were able to convince the pt to get up and try to move to see if that helped pass gas along. Pt stood at the bedside but would not take any steps. Pt sat back down after standing for about 3 min and stated the pain had not improved. This RN gave 10 mg Reglan IV and 1 mg Ativan IV to help calm the patient. Pts abdomen was still distended but firmer. Will assess after 30 min-1hr after medication to see if patient is able to relax enough and possibly pass gas and relieve some pressure. Pt resting in bed now with call light within reach, 2L NC on, and continuous pulse ox on to monitor O2. Will notify provider as needed.
[2021-05-19] VITALS (24 sets, daily range): BP systolic 98–188; BP diastolic 57–94; PULSE 83–126; RESP 16–24; TEMP 37–38; O2SAT 74–97
[2021-05-19] MEDS: SIMETHICONE 80 MG TABLET PO (01:46)
[2021-05-19 06:50] LABS: BUN Creatinine Ratio 26.1 (6-22); Blood Urea Nitrogen 18 mg/dL (9-20); Calcium 8.3 mg/dL (8.4-10.2); Carbon Dioxide 30 mmol/L (22-32); Chloride 98 mmol/L (98-107); Estimated Glomerular Filt Rate > 60.0 mL/min (>60); Glucose 123 mg/dL (80-110); HEMOLYSIS < 15 (0-50); Potassium 3.8 mmol/L (3.4-5.1); Sodium 132 mmol/L (137-145)
[2021-05-19 06:52] LABS: Hematocrit 33.3 % (41-53); Hemoglobin 10.7 g/dL (13.5-17.5); Mean Corpuscular HGB Conc 32.2 % (30-36); Mean Corpuscular Hemoglobin 23.9 PG (26-34); Mean Corpuscular Volume 74.2 fL (80-100); Platelet Count 246 X10^3/uL (150-400); Red Blood Cell Count 4.49 X10^6/uL (4.5-5.9); Red Cell Distribution Width 20.9 % (11.6-14.8); White Blood Cell Count 8.6 X10^3/uL (4.5-11.0)
[2021-05-19] MEDS: MORPHINE 4 MG/ML INJ IV (09:15)
[2021-05-19] MEDS: GABAPENTIN 300 MG CAPSULE PO (09:33)
[2021-05-19] MEDS: TAMSULOSIN 0.4 MG CAPSULE PO (09:34)
[2021-05-19] MEDS: lamoTRIgine 100 MG TABLET 50 MG PO (09:34)
[2021-05-19] MEDS: SODIUM CHLORIDE 0.9% FLUSH 10 ML IV ×2 (09:52→23:00)
[2021-05-19] MEDS: OXYCODONE IR 5 MG TABLET 10 MG PO (10:41)
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
--- NOTE | 2021-05-19 10:56 | DIET.CONS ---
Addendum entered by María Carrera 05/19/21 14:31: Would benefit from a liquid multivitamin and B12 given h/o bariatric sx. Addendum entered by María Carrera 05/19/21 13:49: Spoke with , Ema. She reports Maikol has been losing weight since hip fx in Dec. EMR indicates a 12.7kg or 16% loss since 12/2018. States his UBW is 180# since intentional weight loss c bariatric sx in 2009. She denies changes to his intake over the last year, though does endorse frequent constipation, which he was experiencing prior to admit per her report. BMI is low of age. Upon NFPA Maikol displays severe signs of PCM, including scooping of temporal region, boxed shoulders, and wasting of interosseous muscle. Ema reports noticeable weakness in Maikol's abilities as of recent. If PO remains low, may be a good candidate for nutrition support. 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 RD consulted for limited appetite. Switched from NPO to clears this morning. Will send ensure clear TID and jez slushy BID. Maikol has h/o gastric bypass sx 2014. Poor PO recently. Low BMI for age. Seems he is at risk for malnutrition. He was unable to participate in RD consult this morning. RN informed me that his will be here at noon. RD will return for further eval. Ht: 182.88 cm Wt: 68 kg BMI: 20.3 Last BM: 05/18/21 (05/18/21 11:39) MNA: 12 Paras Score: 15 Diet: 05/18/21 19:02 NPO Diet Diet Modifications: NPO Type: NPO except for Meds 05/19/21 Lunch Clear Liquid Diet Diet Modifications: Ensure Clear 3x per day; Jez slushie 2x per day Nutrition Percent Meal Consumed 50% 05/18/21 13:00 Labs: RBC 4.49 X10^6/uL (4.5-5.9) L 05/19/21 06:05 Hgb 10.7 g/dL (13.5-17.5) L 05/19/21 06:05 Hct 33.3 % (41-53) L 05/19/21 06:05 Creatinine 0.69 mg/dL (0.66-1.25) 05/19/21 06:05 Nutrition Diagnosis: Predicted PCM r/t gastric bypass hx, poor po c ileus aeb PMH, low BMI for age, GI symptoms Interventions: Ensure clear TID, Jez BID ONS to provide 49g PRO daily EER: 2040 kcals (30kcal/kg per BMI), 75-100 g PRO (1.1-1.5g/kg per elderly & potential malnutrition) Monitoring/Evaluations: RD f/u this afternoon Electronically Signed by: María Carrera 05/19/21 10:56 Clinical Dietitian [address] [id number]
--- NOTE | 2021-05-19 11:38 | CM.DPC ---
Addendum entered by Kyung Arredondo R.N. 05/19/21 13:30: Checked in with patient and , Ema, who was at bedside. Patient in bed on a rebreather mask. Spoke briefly with . Dietary had just seen patient prior. Patient not medically stable, but did have a short discussion regarding retirement rehab if this is needed. Spouse indicated, she was hoping for home, but if he's that weak, even though he may not want to, may be best for him. Respiratory therapy just arrived in the room, gave a Medicare Choice List to review. She did indicated that patient had been to [facility] years ago after his hip fracture, wasn't the best environment. Let her know that the facility is now called [facility]. Also let her know that [facility] is in [place] which was [facility]. Let her know that there are also some facilities in [facility] and [place]. Due to patient's medical instability, did not take much time with spouse since RT came into the room. Original Note: DCP Cont: Patient has been sleeping. Discussed patient during team rounds. P.T. indicated that patient is now max assist, and may need skilled rehab. Was informed by nurse that spouse, Ema, may be here at about noon. Will attempt to meet with her in patient's room. Patient had noted some moaning earlier. Original plan was home with home health. P: DCP to continue to follow. Was informed that patient may possibly need retirement when ready for discharge due to weakness. Will attempt to meet with patient and spouse. Kyung Arredondo RN/Ham Clerk
--- NOTE | 2021-05-19 11:52 | PT-IP ANOTE ---
PT spoke with PROFESSOR OF HISTORICAL THEOLOGY who states that pt cannot tolerate PT BID d/t pain management issues. Will decrease frequency to 1x/day.
--- NOTE | 2021-05-19 13:21 | DI.RAD.S_ITS ---
PROCEDURE: XR CHEST 1V INDICATIONS: shortness of breath TECHNIQUE: One view of the chest was acquired. COMPARISON: [facility], CT, CT ABDOMEN PELVIS W CON, 05/15/2021, 14:39. [facility], CR, XR ABDOMEN 1V, 05/18/2021, 15:18. [facility], CR, CHEST 2 VIEW, 03/22/2015, 11:43. FINDINGS: Surgical changes and devices: Epigastric postoperative changes are seen. Lungs and pleura: Low lung volumes are noted. This causes a crowded appearance to the lung markings and limits evaluation. Mild, streaky opacities are seen at the lung bases. No large pneumothorax or large pleural effusions are seen. Mediastinum: Mediastinal contours appear normal. Heart size is normal. Atherosclerotic calcification of the aortic arch is noted. Bones and chest wall: No suspicious bony lesions. Age-appropriate bony degenerative changes are seen. A high-riding hepatic flexure is again seen, which is better demonstrated by CT. IMPRESSION: Low lung volumes, with likely atelectasis at the lung bases. Differential diagnosis includes mild/early infiltrate, yet this is considered to be less likely. Postoperative and degenerative changes are seen. Dictated by: Monroe Roe M.D. on 05/19/2021 at 12:46 Approved by: Monroe Roe M.D. on 05/19/2021 at 12:47
[2021-05-19] MEDS: FUROSEMIDE 40 MG/4 ML VIAL IV (13:35)
--- NOTE | 2021-05-19 13:56 | DI.CT.S_ITS ---
PROCEDURE: CT ABDOMEN PELVIS W CON INDICATIONS: abdominal pain, s/p resection sigmoid resection TECHNIQUE: After the administration of IV contrast, axial sections were acquired from the lung bases to the pubic symphysis. Coronal and sagittal reformats were performed. For radiation dose reduction, the following was used: automated exposure control, adjustment of mA and/or kV according to patient size. The patient was pre-medicated for an iodine allergy. No immediate contrast reactions were experienced. COMPARISON: Outside Facility, RG, CT ABDOMEN/PELVIS WITH CONTRAST, 05/10/2021, 15:48. Outside Facility, RG, XR ABDOMEN FLAT (KUB) 1 VIEW, 05/11/2021, 1:45. [facility], CT, CT ANGIO CHEST PE PROTOCOL, 05/19/2021, 14:19. [facility], CR, XR CHEST 1V, 05/19/2021, 13:23. [facility], CR, XR ABDOMEN 1V, 05/18/2021, 15:18. [facility], CT, CT ABDOMEN PELVIS W CON, 05/15/2021, 14:39. FINDINGS: Image quality: Excellent. Lung bases: Small bilateral pleural effusions with overlying presumed atelectasis can be seen. A small hiatal hernia is incidentally noted. Heart: No significant findings. ABDOMEN: Liver: Unremarkable. Gallbladder: Unremarkable. Biliary ducts: Unremarkable. Pancreas: Unremarkable. Spleen: Unremarkable. Adrenal Glands: Unremarkable. Kidneys and Ureters: Unremarkable. Stomach and Bowel: Bariatric surgery is seen. Postoperative change of the colon can be seen. Gaseous prominence of the colon can be seen, with the transverse colon measuring up to 6.7 cm. Liquid stool is seen within the colon. Mild dilatation of the small bowel can be seen, with small bowel loops measuring up to 3.3 cm. Peritoneum: No abnormal intraperitoneal fluid. Free air is seen. Ventral Wall: No hernia. Anterior abdominal wall postoperative eugenia are seen. Abdominal Nodes: No retroperitoneal or mesenteric adenopathy by size criteria. Vessels: Aorta and inferior vena cava are normal in size. PELVIS: Pelvic Organs: A Campuzano catheter is seen, which decompresses the bladder. Bladder: Unremarkable. Pelvic Nodes: No enlarged lymph nodes. Miscellaneous: No inguinal hernias are seen. Bones: Right proximal femur hardware can be seen. Age-appropriate bony degenerative changes are seen. IMPRESSION: Dilatation of the colon and small bowel, likely on the basis of ileus in this patient with recent surgery. Free intraperitoneal gas can be seen, which is attributed to the recent surgery. There is liquid stool seen within the colon. Please correlate with clinical diarrhea. Incidental note is made of: Small bilateral pleural effusions with overlying presumed atelectasis Bariatric surgery Colon anastomotic staple lines are seen. Campuzano catheter Right proximal femur hardware Dictated by: Monroe Roe M.D. on 05/19/2021 at 14:21 Approved by: Monroe Roe M.D. on 05/19/2021 at 14:31
--- NOTE | 2021-05-19 14:00 | DI.CT.S_ITS ---
PROCEDURE: CT ANGIO CHEST PE PROTOCOL INDICATIONS: Short of breath, recent surgery, Pe? TECHNIQUE: After the administration of intravenous contrast, 2 mm thick sections acquired from the pulmonary apices to the posterior costophrenic angles. 3-dimensional maximum intensity projection (MIP) coronal and sagittal reformats were then acquired through the thorax. For radiation dose reduction, the following was used: automated exposure control, adjustment of mA and/or kV according to patient size. The patient was pre-medicated for an iodine allergy. No immediate contrast reactions were experienced. COMPARISON: [facility], CR, XR CHEST 1V, 05/19/2021, 13:23. [facility], CT, CT ABDOMEN PELVIS W CON, 05/19/2021, 14:19. FINDINGS: Image quality: Excellent. Pulmonary arteries: Pulmonary arteries are normal in size, and demonstrate no intraluminal filling defects to suggest central pulmonary embolism. Lungs and pleura: Small bilateral pleural effusions are seen. Dependent consolidation can be seen at the lung bases. Mediastinum: Heart size is normal, without pericardial effusion. There is at least moderate coronary artery calcification. Borderline prominent mediastinal lymph nodes are seen. Thoracic aorta is normal in caliber and enhancement. Esophagus is normal in caliber. There is a small hiatal hernia. Bones and chest wall: No suspicious bony lesions. Ribs and thoracic spine appear intact throughout. Age-appropriate bony degenerative changes are seen. Accentuated thoracic kyphosis is seen. Thyroid gland demonstrates no significant abnormality. No axillary or supraclavicular adenopathy. Abdomen: The patent flexure is high riding. Bariatric surgery can be seen. The visualized portions of the upper abdominal structures are otherwise unremarkable for imaging technique. IMPRESSION: Negative for pulmonary embolism. Small bilateral pleural effusions, with presumed overlying atelectasis. There are borderline prominent mediastinal lymph nodes seen, which are likely reactive. Incidental note is made of: At least moderate coronary artery calcification Small hiatal hernia Bariatric surgery High-riding hepatic flexure. Dictated by: Monroe Roe M.D. on 05/19/2021 at 14:15 Approved by: Monroe Roe M.D. on 05/19/2021 at 14:20
--- NOTE | 2021-05-19 14:44 | PT-IP ANOTE ---
Addendum entered and electronically signed by Dea Ontiveros PTA 05/20/21 08:15: Pt will be discharged 05/20/21. Will await new orders for PT. Original Note: Per nursing pt was taken to have CT scan due to worsening condition. He will return to the ICU.
--- NOTE | 2021-05-19 14:45 | PC.NURSE ---
PATIENT ARRIVED TO ICU VIA BED IN SEMI-FOWLERS POSITION AT 1411. PATIENT IS A&O X 4. MENTATION DROWSY, BUT ABLE TO FOLLOW COMMANDS APPROPRIATELY. VSS: HR 109, RR: 17, BP 139/79, TEMP: 98.6. GCS: 14. PATIENT ON 15 L O2 VIA NRB. LUNG SOUNDS DEMINISHED WITH COURSE CRACKLES ON RIGHT SIDE AND COURSE CRACKLES ON LEFT SIDE. ABDOMEN IS DISTENDED AND PAINFUL. BOWEL SOUNDS ARE HYPOACTIVE. AQUACEL DRESSING TO LOWER MIDDLE ABDOMEN IS SOILED. UNKNOWN DATE OF LAST DRESSING CHANGE. 20G IV TO LEFT WRIST IS PATENT AND IS FLUSHED WITH NS UPON ARRIVAL. ANOTHER 20G IV IS ESTABLISHED TO THE RIGHT FOREARM. PATIENT WAS IMMEDIATELY TRANSPORTED TO CT VIA BED ONCE 2ND IV WAS ESTABLISHED. PATIENT ARRIVED BACK TO ICU FROM CT AT 1454. PATIENT TOLERATED WELL.
--- NOTE | 2021-05-19 14:50 | PC.NURSE ---
Pt received sleeping this a.m. easily awakened and answering questions appropriately VSS, afebrile this a.m. initially temp 100.4 but upon recheck temp 99.2 F. Pt with course lung sounds but 02 saturation this a.m. 93-95% on RA. He awakenes at approximately 0900 moaning in pain, given IV morphine 4mg for 10/10, he hollars with repositioning. Reddened buttocks, blanchable, waffle coushin placed. Aquacel drainage placed midline with moderate drainage underneath. Abdomen very firm and distended with hypoactive BS. He is cleared by MD for clear liquids and requests breakfast. Given about 500 cc this a.m. RN encouraged to use IS and he is able to use it x10 very weakily reaching 500cc. At noon patient 02 sat on RA 88% patient is lethargic but easily awakened encouraged to use IS and 2 L NC placed, pt mouth breathing and 02 sats not improving with increasing 02. Notified surgeon and recieved orders for RT consult. RT at bedside placed patient on non rebreather, notified hospitalist and received orders for lasix and CXray completed at bedside. Pt given lasix. Pt respiratory distress continuing and progressed to transfering patient to ICU. Report given to IT SENIOR SOFTWARE ENGINEER JAVAKAMINI Mendiola.
--- NOTE | 2021-05-19 15:12 | RT ---
Requested my assistance transporting pt to CT. pt monique well, on NRB Mask at 15lpm, Sao2 @ 93%. Pt transported back to ICU without incident, pt on NRB Mask Sao2 @92%, Per pt is a DNR
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
[2021-05-19] MEDS: diphenhydrAMINE 50 MG/ML VIAL (15:57)
[2021-05-19] MEDS: HYDROMORPHONE 1 MG INJ IV (15:57)
[2021-05-19] MEDS: MORPHINE 4 MG/ML INJ (15:57)
[2021-05-19] MEDS: MORPHINE 10 MG/0.5 ML ORAL SYRINGE (16:15)
[2021-05-19] MEDS: LORazepam 2 MG/ML INJ (16:34)
[2021-05-19] MEDS: MORPHINE 50 MG in DEXTROSE 5 % IN WATER 45 ML 5 ML IV (17:04)
[2021-05-19] MEDS: PIPERACILLIN/TAZO 3.375 GM in SODIUM CHLORIDE 0.9% 100 ML 25 ML IV ×2 (17:32→22:51)
[2021-05-20] VITALS (9 sets, daily range): BP systolic 124–129; BP diastolic 62–69; PULSE 90–116; RESP 12–26; TEMP 36.4–37; O2SAT 78–91
[2021-05-20] MEDS: MORPHINE 50 MG in DEXTROSE 5 % IN WATER 45 ML 5 ML IV ×3 (00:22→23:05)
--- NOTE | 2021-05-20 00:36 | PM.ICURNDS ---
- Date Patient Seen: 05/20/21 Time Patient Seen: 00:07 :: This patient was seen via real time interactive two-way audiovisual telecommunication. Note: Case discussed with RN who reports that patient is comfortable on morphine infusion given DNR status and transition to palliative mode. Scopolamine patch ordered. Continue current mgmt.
[2021-05-20] MEDS: SCOPOLAMINE 1 PATCH TOP (02:57)
--- NOTE | 2021-05-20 07:24 | PC.NURSE ---
Per shift report pt is on comfort measures. Limited medical interventions has been ordered by Dr. Herron. Pt is currently on 5mg/hr of IV morphine. Pt is sleeping and opens eyes when touched. Pt is on a non-rebreather at 15L and is on the monitor for SpO2 and RR. Skin is warm and diaphoretic. This RN removed some blankets and pt was switched to NC 6L for comfort. Pt respirations are regular and unlabored. Pt's mouth swabbed with mouth swabs and a scopolamine patch was placed behind the R ear. Pt's spouse Ema was updated about plan of care and educated om pt's treatments. Due to pt being on comfort care, this RN held pt's scheduled vancomycin which was also held on the previous shift.
[2021-05-20] MEDS: PIPERACILLIN/TAZO 3.375 GM in SODIUM CHLORIDE 0.9% 100 ML 25 ML IV ×3 (08:54→23:05)
[2021-05-20] MEDS: SODIUM CHLORIDE 0.9% 1,000 ML 100 ML IV (08:55)
[2021-05-20 09:32] LABS: Hematocrit 29.3 % (41-53); Hemoglobin 9.4 g/dL (13.5-17.5); Mean Corpuscular Hemoglobin 23.6 PG (26-34); Mean Corpuscular Volume 73.8 fL (80-100); Platelet Count 222 X10^3/uL (150-400); Red Blood Cell Count 3.97 X10^6/uL (4.5-5.9); Red Cell Distribution Width 20.4 % (11.6-14.8); White Blood Cell Count 6.6 X10^3/uL (4.5-11.0)
[2021-05-20 09:49] LABS: BUN Creatinine Ratio 32.3 (6-22); Blood Urea Nitrogen 32 mg/dL (9-20); Calcium 8.2 mg/dL (8.4-10.2); Carbon Dioxide 32 mmol/L (22-32); Chloride 100 mmol/L (98-107); Estimated Glomerular Filt Rate > 60.0 mL/min (>60); Glucose 116 mg/dL (80-110); HEMOLYSIS < 15 (0-50); Potassium 4.6 mmol/L (3.4-5.1); Sodium 133 mmol/L (137-145)
[2021-05-20 10:01] LABS: NT-proBNP (BNP-Adult 18+) 2210 pg/mL (<450); Troponin I 0.017 ng/mL (0.01-0.034)
[2021-05-20] MEDS: VANCOMYCIN 1,250 MG/250 ML PIGGYBACK 250 MG IV ×2 (11:15→21:53)
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
[2021-05-20] MEDS: SODIUM CHLORIDE 0.9% FLUSH 10 ML IV ×2 (12:19→19:54)
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
--- NOTE | 2021-05-20 16:58 | PC.NURSE ---
Addendum entered by Selene Guillen R.N. 05/20/21 17:20: DECISION MADE TO NOT TO TRANSFER PT AT THIS TIME- HE REMAINS FLOOR CARE STATUS AND DNR Original Note: LENGTHY CONVERSATION WITH PT'S SPOUSE, CASSANDRA THIS AM , AND SHE RELAYED HER CONCERNS RE: COMFORT CARE VS. CONTINUED TREATMENT - HE WENT RAPIDLY FROM 6L NC IN HIS MOUTH THIS AM TO NRB AT 15L, SCD'S IN PLACED HE IS CONTINUING ON MORPHINE GTT AT 5MG/H AFTER DECREASING TO 2.5 THEN DEMONSTRATING SIGNIFICANT ABD PAIN UPON DR. Cui'S ASSESSMENT - INCREASED TO 4MG/H THEN RESUMED 5MG/H - HE IS ABLE TO OPEN EYES INTERMITTENTLY AND HAS SHALLOW RESPS - DRESSING CHANGE COMPLETED TO ABD - NO NEW DRAINAGE NOTED- TRACHEAL/BRONCHIAL GURGLING NOTED - INITIATED TURN SCHEDULE Q 2H AND UPON LAST TURN ( 1649) HIS SPO2 DECREASED TO 79% WITH VERY LITTLE IMPROVEMENT- TEARFUL AT BEDSIDE BUT REMAINS UNDERSTANDING OF POOR PROGNOSIS AND NEED TO HONOR PTS WISHES - CONTINUED IVF AND ABX THERAPY- PREPARING TO MOVE PT TO MED-SURG ROOM FROM ICU
[2021-05-20] MEDS: LORazepam 2 MG/ML INJ 1 MG IV (19:53)
[2021-05-20] MEDS: SODIUM CHLORIDE 0.9% 1,000 ML 21 ML IV (23:07)
[2021-05-21] VITALS (7 sets, daily range): BP systolic 107; BP diastolic 52; PULSE 86; RESP 13–14; TEMP 37.4–37.9; O2SAT 78–93
[2021-05-21 05:27] LABS: BUN Creatinine Ratio 27.1 (6-22); Blood Urea Nitrogen 45 mg/dL (9-20); Calcium 8.1 mg/dL (8.4-10.2); Carbon Dioxide 27 mmol/L (22-32); Chloride 102 mmol/L (98-107); Estimated Glomerular Filt Rate 39.9 mL/min (>60); Glucose 83 mg/dL (80-110); HEMOLYSIS < 15 (0-50); Potassium 4.5 mmol/L (3.4-5.1); Sodium 134 mmol/L (137-145)
[2021-05-21] MEDS: PIPERACILLIN/TAZO 3.375 GM in SODIUM CHLORIDE 0.9% 100 ML 25 ML IV (05:28)
[2021-05-21 05:30] LABS: Hematocrit 30.7 % (41-53); Hemoglobin 9.6 g/dL (13.5-17.5); Mean Corpuscular HGB Conc 31.3 % (30-36); Mean Corpuscular Hemoglobin 23.4 PG (26-34); Mean Corpuscular Volume 74.5 fL (80-100); Platelet Count 230 X10^3/uL (150-400); Red Blood Cell Count 4.12 X10^6/uL (4.5-5.9); Red Cell Distribution Width 20.8 % (11.6-14.8); White Blood Cell Count 7.2 X10^3/uL (4.5-11.0)
[2021-05-21] MEDS: VANCOMYCIN 1,250 MG/250 ML PIGGYBACK 250 MG IV (09:48)
[2021-05-21 10:16] LABS: Vancomycin Trough 14.5 ug/mL (10-20)
[2021-05-21] MEDS: LORazepam 2 MG/ML INJ 1 MG IV (11:05)
[2021-05-21] MEDS: MORPHINE 50 MG in DEXTROSE 5 % IN WATER 45 ML 6 ML IV (11:06)
[2021-05-21] MEDS: SODIUM CHLORIDE 0.9% FLUSH 10 ML IV ×2 (11:07→21:30)
--- NOTE | 2021-05-21 11:17 | PC.NURSE ---
Addendum entered by Selene Guillen R.N. 05/21/21 14:38: called to pts room by his - she asked if we could decrease the morphine gtt to see if he becomes more responsive- attempted to discuss the situation but she was adamant that this be done- decreased morphine to 3mg/h per her wish - reposiotned to supine with slight elevation of head o2 continues at 2-3 L VIA NC orally repostioned at this time as well Original Note: initial assessment of pt fwas that he was unresponsive and flaccid while turning/repostioning in bed- no attempt at verbal communicaton - , Yazmin was hopeful r/t increased spo2 ( 91-93% ) on nrb at 15L- but rightfully concerned re: unresponsiveness- reviewed plan of care and reviewed pt's own advanced directives and decision made to decrease oxygen and stop abx treatment as well as decrease ivf- this all was handled with Dr. Larry and his lengthy rounds with pt/- update to hospitalist. turned q 2h and decreased o2 to 2-3L per nc into mouth, increased ms gtt to 6mg/h and will dc iv abx
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
--- NOTE | 2021-05-21 14:01 | CM.DPNOTE ---
DCP Note According to Dr Larry, patient has now been made comfort care and is not expected to survive this hospitalization. CM team will follow closely as medical POC unfolds. Can reassess for DC needs, discuss DCP options if patient stabilizes here on comfort measures and requires a [facility] DCP w/end of life care. MOMO
[2021-05-22] MEDS: MORPHINE 50 MG in DEXTROSE 5 % IN WATER 45 ML IV (02:11)
[2021-05-22] MEDS: LORazepam 2 MG/ML INJ 1 MG IV (02:22)
--- NOTE | 2021-05-22 03:51 | PC.NURSE ---
At approx 02:30, this RN was notified by ICU of condition change in pt. HR ~140s, irregular, SPO2 75% on 3L NC. Morphine drip was titrated up to 4 mg and 1 mg ativan IV was administered. At approx 02:35, pt HR increased and sustained at 160-170 BPM and SPO2 dropped to 70-71% on 3L. Provider EMILE and coordinator BHAVANI notified of status change. At approx 03:50, pt HR lowered to 90-100 and SPO2 hilda to 73-75% RA. Family remains at bedside. PATIENT ADMITTING CLERK & Coordinator aware of additional visitor accommodation. Will continue to monitor.
[2021-05-22] MEDS: SODIUM CHLORIDE 0.9% FLUSH 10 ML IV (08:38)
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
[2021-05-22 09:13] VITALS: TEMP 38.1
[2021-05-22 10:00] VITALS: O2SAT 80
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
[2021-05-22 12:20] VITALS: O2SAT 63
--- NOTE | 2021-05-22 14:30 | PC.NURSE ---
Patient at approximately 1345. at bedside. Time of confirmed by this RN and Gale Ross RN. Provider informed of time of . Arrangements made with for pick-up by preferred services. Patient prepared for pick-up by CULTURAL ANTHROPOLOGY PROFESSOR and this RN, personal hygiene and oral care provided.
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
== END 2021-05-22 21:45 | disposition expired | DRG 329 ==
LOC: ED 16:02 → AC 16:10 → ICU 05-19 14:49
PROVIDERS: Surgery; Admitting Provider Internal Medicine; Emergency Provider Emergency Medicine; PCP Family Medicine; Referring Provider Emergency Medicine; Visit Provider Internal Medicine
PROC: 0DTN0ZZ Resection of Sigmoid Colon, Open Approach (ICD-10-PCS; CPT 44140; principal; 2021-05-16 13:00)
DX: K56.2 Volvulus (principal); J96.01 Acute respiratory failure with hypoxia; A41.9 Sepsis, unspecified organism; R65.20 Severe sepsis without septic shock; Q43.8 Other specified congenital malformations of intestine; I50.32 Chronic diastolic (congestive) heart failure; K91.89 Other postprocedural complications and disorders of digestive system; K56.7 Ileus, unspecified; N40.1 Benign prostatic hyperplasia with lower urinary tract symptoms; R33.8 Other retention of urine; I35.0 Nonrheumatic aortic (valve) stenosis; G40.909 Epilepsy, unspecified, not intractable, without status epilepticus; F10.20 Alcohol dependence, uncomplicated; Z87.891 Personal history of nicotine dependence; Z20.822 Contact with and (suspected) exposure to COVID-19; I11.0 Hypertensive heart disease with heart failure; Z66 Do not resuscitate; Z51.5 Encounter for palliative care
CPT/HCPCS: 36415; 51798; 71045; 71275; 74018; 74177; 80048; 80053; 80202; 81001; 83605; 83690; 83735; 83880; 84100; 84484; 85025; 85027; 85610; 85730; 87635; 93005; 94760; 96374; 96375; 97110; 97162; 99285; C9803; A9270; J0360; J0690; J1100; J1170; J1200; J1940; J1953; J2060; J2270; J2405; J2543; J2704; J2765; J2930; J3010; Q9967